=== PATIENT | male | born 1945 | race Caucasian/White ===

== ENCOUNTER 2017-11-11 11:03 | Inpatient (IN) | payer MEDICARE ==
[2017-11-11] MEDS ORDERED: Albuterol 8 GM Inhaler INH PRN (11:58)
[2017-11-11] MEDS ORDERED: Clobetasol 0.05% Crm 30 GM Tube TOP PRN (11:58)
[2017-11-11] MEDS ORDERED: Bumetanide 2.5 MG/10 ML MDV IVPUSH SCH (12:00)
[2017-11-11] MEDS ORDERED: Acetaminophen 325 MG Tab PO PRN (12:01)
[2017-11-11] MEDS ORDERED: Docusate Sodium 100 MG Cap PO PRN (12:01)
[2017-11-11] MEDS ORDERED: Sodium Chloride 0.9% 10 ML Syringe FLUSH PRN (12:01)
[2017-11-11] MEDS ORDERED: Ondansetron 4 MG/2 ML SDV IV PRN (12:01)
[2017-11-11] MEDS ORDERED: oxyCODONE 5 MG Tab PO PRN (12:01)
[2017-11-11] MEDS ORDERED: Magnesium Hydroxide 400 MG/5 ML Susp 30 ML Cup PO PRN (12:01)
[2017-11-11] MEDS ORDERED: Polyethylene Glycol 3350 Powder 17 GM Packet PO PRN (12:01)
[2017-11-11] MEDS ORDERED: Albuterol 0.083% 2.5 MG/3 ML Neb Soln NEB PRN (12:01)
[2017-11-11] MEDS ORDERED: Bumetanide 2.5 MG/10 ML MDV IVPUSH ONE (12:40)
--- NOTE | 2017-11-11 12:50 | PCM.HP ---
H&P History of Present Illness - General Date of Service: 11/11/17 Admit Problem/Dx: Admission Diagnosis/Problem Admission Diagnosis/Problem CHF, Congestive heart failure Source of Information: Patient, Old Records, Provider History Limitations: Reports: No Limitations - History of Present Illness Initial Comments - Free Text/Narative: Mr. Sullivan is a 72-year-old gentleman who is admitted as a direct admission from the clinic for further evaluation and management of dyspnea and atrial fibrillation with rapid ventricular response. Over the last 3 weeks has had symptoms of progressive shortness of breath, now to the point that he is been short of breath at rest with PND and orthopnea. During that period of time is also developed severe peripheral edema extending into his thighs and lower abdomen. He was seen and evaluated at the clinic last week, BNP was elevated at 300 and he was noted to be in atrial fibrillation with rapid ventricular response. Recommendation was made at that time for hospitalization which he refused. His dose of beta donaldo was increased was placed on an increased dose of diuretic therapy. Warfarin was initiated for anticoagulation because of the atrial fibrillation. CT scan of the chest with PE protocol was obtained that showed no evidence of pulmonary embolism or pneumonia but did document pulmonary edema. Echocardiogram has been ordered but the patient did not feel well enough to come in for the study. On reassessment in the clinic today was noted to be worse with increased weight gain and increased shortness of breath so he's been referred for hospitalization. He denies any previous history of coronary artery disease, problem list does report cardiomyopathy patient says that he is not aware of this. 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 Denies any symptoms consistent with infection or COPD exacerbation. - Related Data Allergies/Adverse Reactions: Allergies Allergy/AdvReac Type Severity Reaction Status Date / Time No Known Allergies Allergy Verified 11/11/17 11:47 Home Medications: Home Meds Albuterol Sulfate [Proair Hfa] 2 puff IH Q4HR PRN 03/19/15 [History] Clobetasol [Clobetasol Propionate 0.05%] 1 applic TOP BID PRN 03/19/15 [History] Febuxostat [Uloric] 40 mg PO DAILY 03/19/15 [History] Furosemide 40 mg PO DAILY 03/19/15 [History] Nebivolol HCl [Bystolic] 5 mg PO BID 04/19/15 [History] Tadalafil [Cialis] 10 mg PO DAILY PRN 03/19/15 [History] Triamcinolone Acetonide [Triamcinolone Acetonide 0.5%] 1 applic TOP DAILY PRN [History] Valsartan 160 mg PO BID 03/19/15 [History] Tamsulosin [Tamsulosin 24 Hr] 0.4 mg PO DAILY 03/11/16 [History] Fluocinonide [Lidex 0.05% Top Soln] 1 applic TOP BID 01/06/17 [History] Digoxin [Digox] 125 mcg PO Q48H 11/11/17 [History] Fluticasone/Salmeterol [Advair 250-50 Diskus] 1 puff IN BID 11/11/17 [History] Warfarin Sodium [Warfarin Sodium] 5 mg PO DAILY 11/11/17 [History] Past Medical History HEENT History: Reports: Cataract Cardiovascular History: Reports: Afib, Cardiomyopathy, Heart Failure, High Cholesterol, Hypertension Respiratory History: Reports: COPD Genitourinary History: Reports: Other (See Below) Other Genitourinary History: stage 3 Kidney disease Musculoskeletal History: Reports: Back Pain, Chronic Endocrine/Metabolic History: Reports: Obesity/BMI 30+ Oncologic (Cancer) History: Reports: Bladder - Infectious Disease History Infectious Disease History: Reports: Chicken Pox - Past Surgical History HEENT Surgical History: Reports: Oral Surgery Neurological Surgical History: Reports: Spinal Fusion Social & Family History - Tobacco Use Smoking Status *Q: Former Smoker Years of Tobacco use: 45 Used Tobacco, but Quit: Yes Month Tobacco Last Used: 12 year Second Hand Smoke Exposure: Yes - Caffeine Use Caffeine Use: Reports: Coffee, Soda - Alcohol Use Days Per Week of Alcohol Use: 3 Number of Drinks Per Day: 2 Total Drinks Per Week: 6 - Recreational Drug Use Recreational Drug Use: No H&P Review of Systems - Review of Systems: Review Of Systems: See Below General: Reports: Weakness. Denies: Fever, Chills HEENT: Reports: No Symptoms Pulmonary: Reports: Shortness of Breath. Denies: Wheezing, Pleuritic Chest Pain , Cough, Sputum, Hemoptysis Cardiovascular: Reports: Dyspnea on Exertion, Orthopnea, PND, Edema. Denies: Chest Pain, Palpitations, Lightheadedness, Syncope Gastrointestinal: Reports: No Symptoms Genitourinary: Reports: No Symptoms Musculoskeletal: Reports: No Symptoms Skin: Reports: No Symptoms Psychiatric: Reports: No Symptoms Neurological: Reports: No Symptoms Hematologic/Lymphatic: Reports: No Symptoms Immunologic: Reports: No Symptoms Exam - Exam Exam: See Below - Vital Signs Vital Signs: Last Vital Signs Temp 97.0 F 11/11/17 11:42 Pulse 120 H 11/11/17 11:42 Resp 22 H 11/11/17 11:42 BP 134/95 H 11/11/17 11:42 Pulse Ox 91 L 11/11/17 11:42 Weight: 346 lb 8 oz - Exam Quality Assessment: Supplemental Oxygen, DVT Prophylaxis General: Alert, Oriented, Cooperative, Mild Distress HEENT: Conjunctiva Clear, Hearing Intact, Mucosa Moist & Yale, Normal Nasal Septum, Posterior Pharynx Clear, Pupils Equal Neck: Supple, Trachea Midline, +2 Carotid Pulse wo Bruit Lungs: Normal Respiratory Effort, Decreased Breath Sounds, Rales. No: Rhonchi, Rub, Wheezing Cardiovascular: Irregular Rhythm, Tachycardia. No: Systolic Murmur, Diastolic Murmur, Gallop/S3, Gallop/S4 GI/Abdominal Exam: Soft, Non-Tender, No Organomegaly, No Distention Back Exam: Normal Inspection, Vertebral Tenderness Extremities: Non-Tender, Pedal Edema Skin: Warm, Dry, Intact Neurological: Cranial Nerves Intact, Strength Equal Bilateral, Normal Speech, Normal Tone, Sensation Intact. No: Focal Deficit Neuro Extensive - Mental Status: Alert, Oriented x3, Normal Mood/Affect, Normal Cognition, Memory Intact *Q Meaningful Use (ADM) - VTE *Q VTE Criteria *Q: - VTE Risk Assess *Q Each Risk Factor Represents 1 Point: Swollen Legs, Current, Obesity ( BMI > 25 kg/m2), Congestive heart failure (CHF), Abnormal Pulmonary Function (COPD) Total Score 1 Point Risk Factors: 4 Each Risk Factor Represents 2 Points: Age 60 - 74 Years Total Score 2 Point Risk Factors: 2 Each Risk Factor Represents 3 Points: None Total Score 3 Point Risk Factors: 0 Each Risk Factor Represents 5 Points: None Total Score 5 Point Risk Factors: 0 Venous Thromboembolism Risk Factor Score *Q: 6 - Stroke *Q Stroke Criteria *Q: - AMI *Q AMI Criteria *Q: Problem List Initiated/Reviewed/Updated: Yes Orders Last 24hrs: Active Orders 24 hr Category Date Time Status Patient Status [ADT] Routine ADT 11/11/17 12:02 Active Ambulate [RC] QID Care 11/11/17 12:02 Active Cardiac Monitoring [RC] .As Directed Care 11/11/17 12:03 Active Height and Weight [RC] DAILY Care 11/11/17 12:02 Active Intake and Output [RC] QSHIFT Care 11/11/17 12:02 Active Notify Provider Vital Signs [RC] ASDIRECTED Care 11/11/17 12:02 Active Oxygen Therapy [RC] PRN Care 11/11/17 12:02 Active RT Aerosol Therapy [RC] ASDIRECTED Care 11/11/17 12:04 Active Up to Chair [RC] QID Care 11/11/17 12:02 Active VTE/DVT Education [RC] Per Unit Routine Care 11/11/17 12:02 Active Vital Signs [RC] Q4H Care 11/11/17 12:02 Active Consult to Planting Material Unloader [CONS] Routine Cons 11/11/17 12:01 Active 2 Gram Sodium Diet [DIET] Diet 11/11/17 Lunch Active Echo Comp wo Cont [US] Urgent Exams 11/12/17 08:00 Stop Req Echo Comp wo Cont [US] Urgent Exams 11/13/17 08:00 Ordered BASIC METABOLIC PANEL,BMP [CHEM] Timed Lab 11/12/17 05:00 Ordered CBC WITH AUTO DIFF [HEME] AM Lab 11/12/17 05:11 Ordered CBC WITH AUTO DIFF [HEME] Stat Lab 11/11/17 12:01 Ordered COMPREHENSIVE METABOLIC PN,CMP [CHEM] Stat Lab 11/11/17 12:01 Ordered DIGOXIN [CHEM] Urgent Lab 11/11/17 12:06 Ordered INR,PT,PROTHROMBIN TIME [COAG] AM Lab 11/12/17 05:11 Ordered INR,PT,PROTHROMBIN TIME [COAG] Stat Lab 11/11/17 12:01 Ordered MAGNESIUM [CHEM] Stat Lab 11/11/17 12:01 Ordered Acetaminophen [Tylenol] Med 11/11/17 12:01 Active 650 mg PO Q4H PRN Albuterol [Proventil Neb Soln] Med 11/11/17 12:01 Active 2.5 mg NEB Q4H PRN Albuterol [Ventolin HFA] Med 11/11/17 11:58 Active 0 gm INH Q4H PRN Albuterol/Ipratropium [DuoNeb 3.0-0.5 MG/3 ML] Med 11/11/17 15:00 Active 3 ml NEB QIDRT Bumetanide [Bumex] Med 11/11/17 19:00 Ordered 2 mg IVPUSH Q12H Clobetasol [Clobetasol 0.05%] Med 11/11/17 11:58 Ordered DOSE gm TOP BID PRN Digoxin [Lanoxin] Med 11/12/17 09:00 Ordered 125 mcg PO DAILY Diltiazem Med 11/11/17 12:43 Once 20 mg IVPUSH ONETIME ONE Diltiazem 100 MG in Normal Saline Adv @ 5 MG/HR(100ml) Med 11/11/17 12:45 Ordered Diltiazem [Cardizem] 100 mg Sodium Chloride 0.9% [Normal Saline] 100 ml IV TITRATE Docusate Sodium [Colace] Med 11/11/17 12:01 Active 100 mg PO BID PRN Enoxaparin [Lovenox] Med 11/11/17 12:15 Ordered 40 mg SUBCUT DAILY Febuxostat [Uloric] Med 11/12/17 09:00 Active 40 mg PO DAILY Fluocinonide [Lidex 0.05% Top Soln] Med 11/11/17 21:00 Ordered 1 applic TOP BID Magnesium Hydroxide [Milk of Magnesia] Med 11/11/17 12:01 Active 30 ml PO Q12H PRN Mometasone/Formoterol [Dulera 200-5 MCG] Med 11/11/17 21:00 Active 2 puff IH BIDRT Nebivolol [Bystolic] Med 11/11/17 21:00 Ordered 10 mg PO BID Ondansetron [Zofran] Med 11/11/17 12:01 Active 4 mg IV Q4H PRN Polyethylene Glycol 3350 [MiraLAX] Med 11/11/17 12:01 Active 17 gm PO DAILY PRN Sodium Chloride 0.9% [Saline Flush] Med 11/11/17 12:01 Active 10 ml FLUSH ASDIRECTED PRN Tamsulosin [Flomax] Med 11/12/17 09:00 Active 0.4 mg PO DAILY Triamcinolone Acetonide [Triamcinolone Acetonide 0.5%] Med 11/11/17 11:58 Ordered 1 applic TOP DAILY PRN Valsartan [Diovan] Med 11/11/17 21:00 Active 160 mg PO BID Warfarin [Coumadin] Med 11/11/17 12:42 Once 7.5 mg PO ONETIME ONE oxyCODONE Med 11/11/17 12:01 Active 5 mg PO Q4H PRN Saline Lock Insert [OM.PC] Routine Oth 11/11/17 12:01 Ordered Resuscitation Status Routine Resus Stat 11/11/17 12:01 Ordered Medication Orders Acetaminophen (Tylenol) 650 mg PO Q4H PRN PRN Reason: Pain (Mild 1-3)/fever Albuterol (Ventolin Hfa) 0 gm INH Q4H PRN PRN Reason: Dyspnea Albuterol (Proventil Neb Soln) 2.5 mg NEB Q4H PRN PRN Reason: Shortness Of Breath/wheezing Albuterol/Ipratropium (Duoneb 3.0-0.5 Mg/3 Ml) 3 ml NEB QIDRT MARSHA Bumetanide (Bumex) 2 mg IVPUSH Q12H MARSHA Clobetasol Propionate (Clobetasol 0.05%) 0 gm TOP BID PRN PRN Reason: Rash Digoxin (Lanoxin) 125 mcg PO DAILY MARSHA Diltiazem HCl (Diltiazem) 20 mg IVPUSH ONETIME ONE Stop: 11/11/17 12:44 Docusate Sodium (Colace) 100 mg PO BID PRN PRN Reason: Constipation Enoxaparin Sodium (Lovenox) 40 mg SUBCUT DAILY MARSHA Febuxostat (Uloric) 40 mg PO DAILY MARSHA Diltiazem HCl 100 mg/ Sodium (Chloride) 100 mls @ 5 mls/hr IV TITRATE MARSHA; 5 MG /HR PRN Reason: Protocol Magnesium Hydroxide (Milk Of Magnesia) 30 ml PO Q12H PRN PRN Reason: Constipation Mometasone Furoate/Formoterol Fumar (Dulera 200-5 Mcg) 2 puff IH BIDRT MARSHA Nebivolol (Bystolic) 10 mg PO BID MARSHA Non-Formulary Medication (Fluocinonide [Lidex 0.05% Top Soln]) 1 applic TOP BID MARSHA Non-Formulary Medication (Triamcinolone Acetonide [Triamcinolone Acetonide 0.5%] ) 1 applic TOP DAILY PRN PRN Reason: Rash Ondansetron HCl (Zofran) 4 mg IV Q4H PRN PRN Reason: Nausea/Vomiting Oxycodone HCl (Oxycodone) 5 mg PO Q4H PRN PRN Reason: Pain (moderate 4-6) Polyethylene Glycol (Miralax) 17 gm PO DAILY PRN PRN Reason: Constipation Sodium Chloride (Saline Flush) 10 ml FLUSH ASDIRECTED PRN PRN Reason: Keep Vein Open Tamsulosin HCl (Flomax) 0.4 mg PO DAILY MARSHA Valsartan (Diovan) 160 mg PO BID MARSHA Warfarin Sodium (Coumadin) 7.5 mg PO ONETIME ONE Stop: 11/11/17 12:43 Assessment/Plan Comment:: ASSESSMENT AND PLAN ATRIAL FIBRILLATION WITH RAPID VENTRICULAR RESPONSE-exact duration is unknown, likely present over the past 3 weeks. Likely contributing factor to current pulmonary edema and probable congestive heart failure. -Continue oral anticoagulation with warfarin -INR now and in a.m. -Increase Bystolic to 10 mg twice daily -Echocardiogram morning -Diltiazem 20 mg IV now -Diltiazem continuous infusion 5 mg per hour -Convert to oral medication in a.m. -Continue digoxin -Digoxin level pending CONGESTIVE HEART FAILURE-obvious pulmonary and peripheral edema contributing to current symptoms. Problem list reports history of cardiomyopathy, patient reports that he is not aware of that. -Strict 2 g sodium diet -Dietary consult to review low-sodium diet -Continue current therapy with ARB, beta donaldo, and digoxin -Hold oral furosemide -Bumex 2 mg IV every 12 hours -Echocardiogram as above COPD-known diagnosis, oxygen dependent. No evidence of acute exacerbation or underlying pulmonary infection. -Continue outpatient medical regimen -Supplemental oxygen as needed -Nebulized albuterol and duo nebs during hospitalization CHRONIC KIDNEY DISEASE STAGE III -Closely monitor urine output and renal function during hospital stay MAINTENANCE ISSUES -DVT prophylaxis; Lovenox 40 mg subcutaneous daily, until INR is therapeutic -GI prophylaxis; not indicated -Cooper catheter; not indicated -Nutrition; 2 g sodium diet -Nicotine dependence; not required CODE STATUS-FULL CODE ADMISSION STATUS-patient will be admitted to inpatient status, expect at least a 2 night hospital stay for evaluation and management of problems as outlined above. At the time of this admission I do not reasonably expected evaluation and management of this problem will require more than a 96 hour hospital stay. DISPOSITION-anticipate discharge to home after the hospital stay. PRIMARY CARE PROVIDER-Dr. Johnson
[2017-11-11] MEDS ORDERED: Diltiazem 25 MG/5 ML SDV IVPUSH ONE (13:00)
[2017-11-11] MEDS: Diltiazem 100 MG in Sodium Chloride 0.9% 100 ML IV SCH ×2 (14:04→23:15)
[2017-11-11] MEDS ORDERED: Warfarin 2.5 MG Tab PO ONE (14:30)
[2017-11-11] MEDS: Albuterol/Ipratropium 3.0-0.5 MG/3 ML Neb Soln NEB SCH ×2 (14:41→21:23)
[2017-11-11] MEDS: Enoxaparin 40 MG/0.4 ML Syringe SUBCUT SCH (15:08)
[2017-11-11] MEDS: Digoxin 125 MCG Tab PO SCH (15:09)
[2017-11-11] MEDS: Bumetanide 2.5 MG/10 ML MDV IVPUSH SCH (19:48)
[2017-11-11] MEDS ORDERED: VALSARTAN PO SCH (21:00)
[2017-11-11] MEDS ORDERED: Non-Formulary Medication 1 Each (Fluticasone/Salmeterol [Advair 250-50 Diskus] 1 PUFF) IN SCH (21:00)
[2017-11-11] MEDS: Formoterol/Mometasone 200-5 MCG 8.8 GM Inhaler IH SCH (21:17)
[2017-11-11] MEDS: FLUOCINONIDE TOP SCH (21:26)
[2017-11-12] MEDS ORDERED: Sodium Chloride 0.9% 500 ML IV ONE (05:44)
[2017-11-12] MEDS: Bumetanide 2.5 MG/10 ML MDV IVPUSH SCH (07:43)
[2017-11-12] MEDS: Formoterol/Mometasone 200-5 MCG 8.8 GM Inhaler IH SCH ×2 (07:56→20:05)
[2017-11-12] MEDS: Albuterol/Ipratropium 3.0-0.5 MG/3 ML Neb Soln NEB SCH ×4 (07:56→20:06)
--- NOTE | 2017-11-12 08:53 | PCM.PN ---
- General Info Date of Service: 11/12/17 Subjective Update: Mr. Sullivan is been stable since admission yesterday. Heart rate has come under better control with use of IV diltiazem and he diuresed approximately 2 L since admission. Continues to have marked peripheral edema and shortness of breath with minimal exertion. Vital signs have otherwise been stable and he has remained afebrile. Functional Status: Reports: Tolerating Diet, Urinating - Review of Systems General: Reports: Weakness. Denies: Fever, Chills Pulmonary: Reports: Shortness of Breath. Denies: Cough, Sputum, Hemoptysis, Wheezing Cardiovascular: Reports: Dyspnea on Exertion, Orthopnea, PND, Edema. Denies: Chest Pain, Palpitations Gastrointestinal: Reports: No Symptoms - Patient Data Vitals - Most Recent: Last Vital Signs Temp 97.1 F 11/12/17 07:00 Pulse 100 11/12/17 07:58 Resp 18 11/12/17 08:00 BP 95/63 11/12/17 08:00 Pulse Ox 95 11/12/17 08:00 Weight - Most Recent: 340 lb 6.4 oz I&O - Last 24 Hours: Intake & Output 11/11/17 11/12/17 11/12/17 22:59 06:59 14:59 Intake Total 1226 769 480 Output Total 3400 475 Balance -2174 294 480 Lab Results Last 24 Hours: Laboratory Results - last 24 hr 11/11/17 11/11/17 11/11/17 Range/Units 13:43 13:43 13:43 WBC 5.9 (4.5-11.0) K/uL RBC 4.30 (4.30-5.90) M/uL Hgb 12.7 D (12.0-15.0) g/dL Hct 42.0 (40.0-54.0) % MCV 98 (80-98) fL MCH 30 (27-31) pg MCHC 30 L (32-36) % Plt Count 183 (150-400) K/uL Neut % (Auto) 75 H (36-66) % Lymph % (Auto) 19 L (24-44) % Snyder % (Auto) 4 (2-6) % Eos % (Auto) 2 (2-4) % Baso % (Auto) 0 (0-1) % PT 12.3 H (9.5-12.0) sec INR 1.14 (0.80-1.20) Sodium 143 (140-148) mmol/L Potassium 4.4 (3.6-5.2) mmol/L Chloride 104 (100-108) mmol/L Carbon Dioxide 36 H (21-32) mmol/L Anion Gap 7.4 (5.0-14.0) mmol/L BUN 18 (7-18) mg/dL Creatinine 1.2 (0.8-1.3) mg/dL Est Cr Clr Drug Dosing 60.18 mL/min Estimated GFR (MDRD) 59 L (>60) Glucose 125 H (74-106) mg/dL Calcium 9.3 (8.5-10.1) mg/dL Magnesium 2.0 (1.8-2.4) mg/dL Total Bilirubin 0.7 (0.2-1.0) mg/dL AST 31 (15-37) U/L ALT 56 (12-78) U/L Alkaline Phosphatase 89 (46-116) U/L Total Protein 7.2 (6.4-8.2) g/dL Albumin 3.4 (3.4-5.0) g/dL Globulin 3.8 H (2.3-3.5) g/dL Albumin/Globulin Ratio 0.9 L (1.2-2.2) Digoxin (0.90-2.00) ng/mL 11/11/17 11/12/17 11/12/17 Range/Units 13:43 05:00 05:00 WBC 5.7 (4.5-11.0) K/uL RBC 4.13 L (4.30-5.90) M/uL Hgb 12.5 (12.0-15.0) g/dL Hct 40.5 (40.0-54.0) % MCV 98 (80-98) fL MCH 30 (27-31) pg MCHC 31 L (32-36) % Plt Count 210 (150-400) K/uL Neut % (Auto) 73 H (36-66) % Lymph % (Auto) 18 L (24-44) % Snyder % (Auto) 6 (2-6) % Eos % (Auto) 3 (2-4) % Baso % (Auto) 1 (0-1) % PT 12.3 H (9.5-12.0) sec INR 1.14 (0.80-1.20) Sodium (140-148) mmol/L Potassium (3.6-5.2) mmol/L Chloride (100-108) mmol/L Carbon Dioxide (21-32) mmol/L Anion Gap (5.0-14.0) mmol/L BUN (7-18) mg/dL Creatinine (0.8-1.3) mg/dL Est Cr Clr Drug Dosing mL/min Estimated GFR (MDRD) (>60) Glucose (74-106) mg/dL Calcium (8.5-10.1) mg/dL Magnesium (1.8-2.4) mg/dL Total Bilirubin (0.2-1.0) mg/dL AST (15-37) U/L ALT (12-78) U/L Alkaline Phosphatase (46-116) U/L Total Protein (6.4-8.2) g/dL Albumin (3.4-5.0) g/dL Globulin (2.3-3.5) g/dL Albumin/Globulin Ratio (1.2-2.2) Digoxin 0.31 L (0.90-2.00) ng/mL 11/12/17 Range/Units 05:00 WBC (4.5-11.0) K/uL RBC (4.30-5.90) M/uL Hgb (12.0-15.0) g/dL Hct (40.0-54.0) % MCV (80-98) fL MCH (27-31) pg MCHC (32-36) % Plt Count (150-400) K/uL Neut % (Auto) (36-66) % Lymph % (Auto) (24-44) % Snyder % (Auto) (2-6) % Eos % (Auto) (2-4) % Baso % (Auto) (0-1) % PT (9.5-12.0) sec INR (0.80-1.20) Sodium 141 (140-148) mmol/L Potassium 4.2 (3.6-5.2) mmol/L Chloride 103 (100-108) mmol/L Carbon Dioxide 35 H (21-32) mmol/L Anion Gap 7.2 (5.0-14.0) mmol/L BUN 20 H (7-18) mg/dL Creatinine 1.4 H (0.8-1.3) mg/dL Est Cr Clr Drug Dosing 51.58 mL/min Estimated GFR (MDRD) 50 L (>60) Glucose 109 H (74-106) mg/dL Calcium 9.0 (8.5-10.1) mg/dL Magnesium (1.8-2.4) mg/dL Total Bilirubin (0.2-1.0) mg/dL AST (15-37) U/L ALT (12-78) U/L Alkaline Phosphatase (46-116) U/L Total Protein (6.4-8.2) g/dL Albumin (3.4-5.0) g/dL Globulin (2.3-3.5) g/dL Albumin/Globulin Ratio (1.2-2.2) Digoxin (0.90-2.00) ng/mL Med Orders - Current: Current Medications Acetaminophen (Tylenol) 650 mg PO Q4H PRN PRN Reason: Pain (Mild 1-3)/fever Albuterol (Ventolin Hfa) 0 gm INH Q4H PRN PRN Reason: Dyspnea Albuterol (Proventil Neb Soln) 2.5 mg NEB Q4H PRN PRN Reason: Shortness Of Breath/wheezing Albuterol/Ipratropium (Duoneb 3.0-0.5 Mg/3 Ml) 3 ml NEB QIDRT [facility] Last Admin: 11/12/17 07:56 Dose: 3 ml Bumetanide (Bumex) 2 mg IVPUSH Q12H [facility] Last Admin: 11/12/17 07:43 Dose: 2 mg Clobetasol Propionate (Clobetasol 0.05%) 0 gm TOP BID PRN PRN Reason: Rash Digoxin (Lanoxin) 125 mcg PO DAILY@1300 [facility] Last Admin: 11/11/17 15:09 Dose: 125 mcg Diltiazem HCl (Cardizem) 60 mg PO Q6H [facility] Docusate Sodium (Colace) 100 mg PO BID PRN PRN Reason: Constipation Enoxaparin Sodium (Lovenox) 40 mg SUBCUT Q24H [facility] Last Admin: 11/11/17 15:08 Dose: 40 mg Febuxostat (Uloric) 40 mg PO DAILY [facility] Magnesium Hydroxide (Milk Of Magnesia) 30 ml PO Q12H PRN PRN Reason: Constipation Mometasone Furoate/Formoterol Fumar (Dulera 200-5 Mcg) 2 puff IH BIDRT [facility] Last Admin: 11/12/17 07:56 Dose: 2 inhalation Nebivolol (Bystolic) 10 mg PO BID [facility] Last Admin: 11/11/17 21:18 Dose: 10 mg Fluocinonide [Lidex (0.05% Top Soln] Ptom) 1 applic TOP BID [facility] Last Admin: 11/11/17 21:26 Dose: Not Given Non-Formulary Medication (Triamcinolone Acetonide [Triamcinolone Acetonide 0.5%] ) 1 applic TOP DAILY PRN PRN Reason: Rash Ondansetron HCl (Zofran) 4 mg IV Q4H PRN PRN Reason: Nausea/Vomiting Oxycodone HCl (Oxycodone) 5 mg PO Q4H PRN PRN Reason: Pain (moderate 4-6) Polyethylene Glycol (Miralax) 17 gm PO DAILY PRN PRN Reason: Constipation Sodium Chloride (Saline Flush) 10 ml FLUSH ASDIRECTED PRN PRN Reason: Keep Vein Open Tamsulosin HCl (Flomax) 0.4 mg PO DAILY [facility] Valsartan (Diovan) 160 mg PO BID [facility] Last Admin: 11/11/17 21:22 Dose: 160 mg Warfarin Sodium (Coumadin) 10 mg PO ONETIME ONE Stop: 11/12/17 10:01 Discontinued Medications Bumetanide (Bumex) 2 mg IVPUSH ONETIME ONE Stop: 11/11/17 12:41 Last Admin: 11/11/17 13:33 Dose: 2 mg Diltiazem HCl (Diltiazem) 20 mg IVPUSH ONETIME ONE Stop: 11/11/17 13:01 Last Admin: 11/11/17 14:00 Dose: 20 mg Diltiazem HCl 100 mg/ Sodium (Chloride) 100 mls @ 5 mls/hr IV TITRATE MARSHA; 5 MG /HR PRN Reason: Protocol Last Admin: 11/11/17 23:15 Dose: 10 mg/hr, 10 mls/hr Sodium Chloride (Normal Saline) 500 mls @ 10 mls/hr IV TITRATE ONE Stop: 11/14/17 07:43 Last Admin: 11/12/17 06:25 Dose: 10 mls/hr Warfarin Sodium (Coumadin) 5 mg PO DAILY MARSHA Warfarin Sodium (Coumadin) 7.5 mg PO ONETIME ONE Stop: 11/11/17 14:31 Last Admin: 11/11/17 15:09 Dose: 7.5 mg - Exam Quality Assessment: Supplemental Oxygen, DVT Prophylaxis General: Alert, Oriented, Cooperative, Mild Distress Lungs: Normal Respiratory Effort, Decreased Breath Sounds, Rales. No: Crackles , Rhonchi, Rub, Wheezing Cardiovascular: Irregular Rhythm, Tachycardia, Murmurs. No: Bradycardia GI/Abdominal Exam: Soft, Non-Tender, No Organomegaly, No Distention Extremities: Non-Tender, Pedal Edema Skin: Warm, Dry - Problem List Review Problem List Initiated/Reviewed/Updated: Yes - My Orders Last 24 Hours: My Active Orders 11/11/17 11:58 Albuterol [Ventolin HFA] 0 gm INH Q4H PRN Clobetasol [Clobetasol 0.05%] 0 gm TOP BID PRN Triamcinolone Acetonide [Triamcinolone Acetonide 0.5%] 1 applic TOP DAILY PRN 11/11/17 12:01 Consult to [employer] Director [CONS] Routine Acetaminophen [Tylenol] 650 mg PO Q4H PRN Albuterol [Proventil Neb Soln] 2.5 mg NEB Q4H PRN Docusate Sodium [Colace] 100 mg PO BID PRN Magnesium Hydroxide [Milk of Magnesia] 30 ml PO Q12H PRN Ondansetron [Zofran] 4 mg IV Q4H PRN Polyethylene Glycol 3350 [MiraLAX] 17 gm PO DAILY PRN Sodium Chloride 0.9% [Saline Flush] 10 ml FLUSH ASDIRECTED PRN oxyCODONE 5 mg PO Q4H PRN Saline Lock Insert [OM.PC] Routine Resuscitation Status Routine 11/11/17 12:02 Patient Status [ADT] Routine Ambulate [RC] QID Height and Weight [RC] 0600 Intake and Output [RC] Q12H Notify Provider Vital Signs [RC] ASDIRECTED Oxygen Therapy [RC] DAILY Up to Chair [RC] QID VTE/DVT Education [RC] Per Unit Routine 11/11/17 12:03 Cardiac Monitoring [RC] Q6H 11/11/17 12:04 RT Aerosol Therapy [RC] ASDIRECTED 11/11/17 13:38 EKG 12 Lead [EK] Urgent 11/11/17 14:30 Digoxin [Lanoxin] 125 mcg PO DAILY@1300 11/11/17 15:00 Albuterol/Ipratropium [DuoNeb 3.0-0.5 MG/3 ML] 3 ml NEB QIDRT Enoxaparin [Lovenox] 40 mg SUBCUT Q24H 11/11/17 19:30 Bumetanide [Bumex] 2 mg IVPUSH Q12H 11/11/17 21:00 Fluocinonide [Lidex 0.05% Top Soln] 1 applic TOP BID Mometasone/Formoterol [Dulera 200-5 MCG] 2 puff IH BIDRT Nebivolol [Bystolic] 10 mg PO BID Valsartan [Diovan] 160 mg PO BID 11/11/17 Lunch 2 Gram Sodium Diet [DIET] 11/12/17 08:43 Warfarin [Coumadin] 10 mg PO ONETIME ONE 11/12/17 08:45 Convert IV to Saline Lock [OM.PC] Routine 11/12/17 08:48 Vital Signs [RC] Q2H 11/12/17 09:00 Febuxostat [Uloric] 40 mg PO DAILY Tamsulosin [Flomax] 0.4 mg PO DAILY 11/12/17 10:00 Diltiazem IR [Cardizem] 60 mg PO Q6HR 11/13/17 05:00 BASIC METABOLIC PANEL,BMP [CHEM] Timed DIGOXIN [CHEM] Timed MAGNESIUM [CHEM] Timed 11/13/17 05:11 INR,PT,PROTHROMBIN TIME [COAG] AM 11/13/17 08:00 Echo Comp wo Cont [US] Urgent - Plan Plan:: ASSESSMENT AND PLAN ATRIAL FIBRILLATION WITH RAPID VENTRICULAR RESPONSE-exact duration is unknown, likely present over the past 3 weeks. Likely contributing factor to current pulmonary edema and probable congestive heart failure. -Warfarin 10 mg by mouth today -Repeat INR in a.m. -Increase Bystolic to 10 mg twice daily -Echocardiogram tomorrow -Discontinue IV diltiazem -Diltiazem 60 mg by mouth every 6 hours -Digoxin 0.125 mg by mouth daily -Repeat digoxin level in a.m. CONGESTIVE HEART FAILURE-obvious pulmonary and peripheral edema contributing to current symptoms. Problem list reports history of cardiomyopathy, patient reports that he is not aware of that. -Strict 2 g sodium diet -Dietary consult to review low-sodium diet -Continue current therapy with ARB, beta donaldo, and digoxin -Hold oral furosemide -Bumex 2 mg IV every 12 hours -Echocardiogram as above COPD-known diagnosis, oxygen dependent. No evidence of acute exacerbation or underlying pulmonary infection. -Continue outpatient medical regimen -Supplemental oxygen as needed -Nebulized albuterol and duo nebs during hospitalization CHRONIC KIDNEY DISEASE STAGE III -Closely monitor urine output and renal function during hospital stay MAINTENANCE ISSUES -DVT prophylaxis; Lovenox 40 mg subcutaneous daily, until INR is therapeutic -GI prophylaxis; not indicated -Cooper catheter; not indicated -Nutrition; 2 g sodium diet -Nicotine dependence; not required CODE STATUS-FULL CODE ADMISSION STATUS-patient will be admitted to inpatient status, expect at least a 2 night hospital stay for evaluation and management of problems as outlined above. At the time of this admission I do not reasonably expected evaluation and management of this problem will require more than a 96 hour hospital stay. DISPOSITION-anticipate discharge to home after the hospital stay. PRIMARY CARE PROVIDER-Dr. Johnson
[2017-11-12] MEDS ORDERED: Warfarin 5 MG Tab PO SCH (09:00)
[2017-11-12] MEDS: Tamsulosin 0.4 MG Cap.ER PO SCH (09:03)
[2017-11-12] MEDS: Febuxostat 40 MG Tab PO SCH (09:03)
[2017-11-12] MEDS: FLUOCINONIDE TOP SCH ×2 (09:04→20:08)
[2017-11-12] MEDS: Diltiazem IR 30 MG Tab PO SCH ×3 (09:14→21:15)
[2017-11-12] MEDS ORDERED: Warfarin 5 MG Tab PO ONE (10:00)
[2017-11-12] MEDS: Digoxin 125 MCG Tab PO SCH (12:36)
[2017-11-12] MEDS ORDERED: Bumetanide 1 MG/4 ML MDV IVPUSH SCH (13:00)
[2017-11-12] MEDS: Enoxaparin 40 MG/0.4 ML Syringe SUBCUT SCH (15:08)
[2017-11-12] MEDS: Bumetanide 1 MG/4 ML MDV IVPUSH SCH (19:22)
[2017-11-13] MEDS: Diltiazem IR 30 MG Tab PO SCH (04:30)
[2017-11-13] MEDS: Formoterol/Mometasone 200-5 MCG 8.8 GM Inhaler IH SCH ×2 (07:01→21:13)
[2017-11-13] MEDS: Albuterol/Ipratropium 3.0-0.5 MG/3 ML Neb Soln NEB SCH ×4 (07:01→21:25)
[2017-11-13] MEDS: Bumetanide 1 MG/4 ML MDV IVPUSH SCH ×2 (08:16→21:10)
[2017-11-13] MEDS: Tamsulosin 0.4 MG Cap.ER PO SCH (08:19)
[2017-11-13] MEDS: Febuxostat 40 MG Tab PO SCH (08:20)
[2017-11-13] MEDS ORDERED: Warfarin 5 MG Tab PO ONE (10:00)
[2017-11-13] MEDS: Diltiazem 120 MG Cap.CD PO SCH (10:27)
[2017-11-13] MEDS: FLUOCINONIDE TOP SCH ×2 (10:32→21:13)
--- NOTE | 2017-11-13 10:33 | PCM.PN ---
- General Info Date of Service: 11/13/17 Subjective Update: Mr. Sullivan is remained stable since yesterday, heart rate control has improved further although continues to go into the low 100s with activity. Vital signs have otherwise been stable and diuresis has been good, modest improvement in shortness of breath and edema. Functional Status: Reports: Pain Controlled, Tolerating Diet, Urinating - Review of Systems General: Reports: Weakness. Denies: Fever, Chills Pulmonary: Reports: Shortness of Breath, Wheezing. Denies: Pleuritic Chest Pain , Cough, Sputum, Hemoptysis Cardiovascular: Reports: Dyspnea on Exertion, Orthopnea, PND, Edema. Denies: Chest Pain, Palpitations Gastrointestinal: Reports: No Symptoms - Patient Data Vitals - Most Recent: Last Vital Signs Temp 97.0 F 11/13/17 09:48 Pulse 101 H 11/13/17 09:48 Resp 20 11/13/17 09:48 BP 111/90 11/13/17 09:48 Pulse Ox 93 L 11/13/17 09:48 Weight - Most Recent: 339 lb 8.19 oz I&O - Last 24 Hours: Intake & Output 11/12/17 11/13/17 11/13/17 22:59 06:59 14:59 Intake Total 1250 Output Total 350 Balance -350 1250 Lab Results Last 24 Hours: Laboratory Results - last 24 hr 11/13/17 11/13/17 Range/Units 04:50 04:50 PT 13.1 H (9.5-12.0) sec INR 1.21 H (0.80-1.20) Sodium 141 (140-148) mmol/L Potassium 3.8 (3.6-5.2) mmol/L Chloride 101 (100-108) mmol/L Carbon Dioxide 35 H (21-32) mmol/L Anion Gap 8.8 (5.0-14.0) mmol/L BUN 16 (7-18) mg/dL Creatinine 1.2 (0.8-1.3) mg/dL Est Cr Clr Drug Dosing 60.26 mL/min Estimated GFR (MDRD) 59 L (>60) Glucose 111 H (74-106) mg/dL Calcium 8.9 (8.5-10.1) mg/dL Magnesium 1.8 (1.8-2.4) mg/dL Digoxin 0.30 L (0.90-2.00) ng/mL Med Orders - Current: Current Medications Acetaminophen (Tylenol) 650 mg PO Q4H PRN PRN Reason: Pain (Mild 1-3)/fever Albuterol (Ventolin Hfa) 0 gm INH Q4H PRN PRN Reason: Dyspnea Albuterol (Proventil Neb Soln) 2.5 mg NEB Q4H PRN PRN Reason: Shortness Of Breath/wheezing Albuterol/Ipratropium (Duoneb 3.0-0.5 Mg/3 Ml) 3 ml NEB QIDRT [facility] Last Admin: 11/13/17 07:01 Dose: 3 ml Bumetanide (Bumex) 2 mg IVPUSH Q12H [facility] Last Admin: 11/13/17 08:16 Dose: 2 mg Clobetasol Propionate (Clobetasol 0.05%) 0 gm TOP BID PRN PRN Reason: Rash Digoxin (Lanoxin) 125 mcg PO DAILY@1300 [facility] Last Admin: 11/12/17 12:36 Dose: 125 mcg Diltiazem HCl (Cardizem Cd) 240 mg PO DAILY [facility] Docusate Sodium (Colace) 100 mg PO BID PRN PRN Reason: Constipation Last Admin: 11/12/17 11:32 Dose: 100 mg Enoxaparin Sodium (Lovenox) 40 mg SUBCUT Q24H [facility] Last Admin: 11/12/17 15:08 Dose: 40 mg Febuxostat (Uloric) 40 mg PO DAILY [facility] Last Admin: 11/13/17 08:20 Dose: 40 mg Magnesium Hydroxide (Milk Of Magnesia) 30 ml PO Q12H PRN PRN Reason: Constipation Magnesium Oxide (Magnesium Oxide) 400 mg PO BID [facility] Mometasone Furoate/Formoterol Fumar (Dulera 200-5 Mcg) 2 puff IH BIDRT [facility] Last Admin: 11/13/17 07:01 Dose: 2 inhalation Nebivolol (Bystolic) 10 mg PO BID [facility] Last Admin: 11/13/17 08:20 Dose: 10 mg Fluocinonide [Lidex (0.05% Top Soln] Ptom) 1 applic TOP BID [facility] Last Admin: 11/12/17 20:08 Dose: Not Given Non-Formulary Medication (Triamcinolone Acetonide [Triamcinolone Acetonide 0.5%] ) 1 applic TOP DAILY PRN PRN Reason: Rash Ondansetron HCl (Zofran) 4 mg IV Q4H PRN PRN Reason: Nausea/Vomiting Oxycodone HCl (Oxycodone) 5 mg PO Q4H PRN PRN Reason: Pain (moderate 4-6) Polyethylene Glycol (Miralax) 17 gm PO DAILY PRN PRN Reason: Constipation Potassium Chloride (Klor-Con M20) 40 meq PO BID [facility] Sodium Chloride (Saline Flush) 10 ml FLUSH ASDIRECTED PRN PRN Reason: Keep Vein Open Tamsulosin HCl (Flomax) 0.4 mg PO DAILY [facility] Last Admin: 11/13/17 08:19 Dose: 0.4 mg Valsartan (Diovan) 160 mg PO BID [facility] Last Admin: 11/13/17 08:19 Dose: 160 mg Discontinued Medications Bumetanide (Bumex) 2 mg IVPUSH Q12H [facility] Last Admin: 11/12/17 07:43 Dose: 2 mg Bumetanide (Bumex) 2 mg IVPUSH ONETIME ONE Stop: 11/11/17 12:41 Last Admin: 11/11/17 13:33 Dose: 2 mg Bumetanide (Bumex) 2 mg IVPUSH Q12H [facility] Last Admin: 11/12/17 13:35 Dose: Not Given Diltiazem HCl (Diltiazem) 20 mg IVPUSH ONETIME ONE Stop: 11/11/17 13:01 Last Admin: 11/11/17 14:00 Dose: 20 mg Diltiazem HCl (Cardizem) 60 mg PO Q6H [facility] Last Admin: 11/13/17 04:30 Dose: 60 mg Diltiazem HCl 100 mg/ Sodium (Chloride) 100 mls @ 5 mls/hr IV TITRATE MARSHA; 5 MG /HR PRN Reason: Protocol Last Admin: 11/11/17 23:15 Dose: 10 mg/hr, 10 mls/hr Sodium Chloride (Normal Saline) 500 mls @ 10 mls/hr IV TITRATE ONE Stop: 11/14/17 07:43 Last Admin: 11/12/17 06:25 Dose: 10 mls/hr Warfarin Sodium (Coumadin) 5 mg PO DAILY [facility] Warfarin Sodium (Coumadin) 7.5 mg PO ONETIME ONE Stop: 11/11/17 14:31 Last Admin: 11/11/17 15:09 Dose: 7.5 mg Warfarin Sodium (Coumadin) 10 mg PO ONETIME ONE Stop: 11/12/17 10:01 Last Admin: 11/12/17 10:21 Dose: 10 mg Warfarin Sodium (Coumadin) 10 mg PO ONETIME ONE Stop: 11/13/17 10:01 - Exam Quality Assessment: Supplemental Oxygen, DVT Prophylaxis General: Alert, Oriented, Cooperative, Mild Distress Lungs: Normal Respiratory Effort, Decreased Breath Sounds, Rales, Wheezing. No : Crackles, Rhonchi Cardiovascular: Regular Rate, No Murmurs, Irregular Rhythm. No: Bradycardia GI/Abdominal Exam: Soft, Non-Tender, No Organomegaly, No Distention Extremities: Pedal Edema Skin: Warm, Dry - Problem List Review Problem List Initiated/Reviewed/Updated: Yes - My Orders Last 24 Hours: My Active Orders 11/12/17 19:30 Bumetanide [Bumex] 2 mg IVPUSH Q12H 11/13/17 08:00 Echo Comp wo Cont [US] Urgent 11/13/17 08:51 Intake and Output Strict [RC] ASDIRECTED 11/13/17 09:00 Diltiazem [Cardizem CD] 240 mg PO DAILY 11/13/17 10:30 Magnesium Oxide 400 mg PO BID Potassium Chloride [Klor-Con M20] 40 meq PO BID 11/14/17 05:00 BASIC METABOLIC PANEL,BMP [CHEM] Timed MAGNESIUM [CHEM] Timed 11/14/17 05:11 INR,PT,PROTHROMBIN TIME [COAG] AM - Plan Plan:: ASSESSMENT AND PLAN ATRIAL FIBRILLATION WITH RAPID VENTRICULAR RESPONSE-exact duration is unknown, likely present over the past 3 weeks. Likely contributing factor to current pulmonary edema and probable congestive heart failure. -Warfarin 10 mg by mouth today -Repeat INR in a.m. -Bystolic to 10 mg twice daily -Echocardiogram tomorrow -Discontinue IV diltiazem -Diltiazem CD 240 mg by mouth daily -Digoxin 0.125 mg by mouth daily CONGESTIVE HEART FAILURE-obvious pulmonary and peripheral edema contributing to current symptoms. Problem list reports history of cardiomyopathy, patient reports that he is not aware of that. Echocardiogram shows ejection fraction in the range of 35-40%, formal report pending. -Strict 2 g sodium diet -Dietary consult to review low-sodium diet -Continue current therapy with ARB, beta donaldo, and digoxin -Hold oral furosemide -Bumex 2 mg IV every 12 hours COPD-known diagnosis, oxygen dependent. No evidence of acute exacerbation or underlying pulmonary infection. -Continue outpatient medical regimen -Supplemental oxygen as needed -Nebulized albuterol and duo nebs during hospitalization CHRONIC KIDNEY DISEASE STAGE III -Closely monitor urine output and renal function during hospital stay MAINTENANCE ISSUES -DVT prophylaxis; Lovenox 40 mg subcutaneous daily, until INR is therapeutic -GI prophylaxis; not indicated -Cooper catheter; not indicated -Nutrition; 2 g sodium diet -Nicotine dependence; not required CODE STATUS-FULL CODE ADMISSION STATUS-patient will be admitted to inpatient status, expect at least a 2 night hospital stay for evaluation and management of problems as outlined above. At the time of this admission I do not reasonably expected evaluation and management of this problem will require more than a 96 hour hospital stay. DISPOSITION-anticipate discharge to home after the hospital stay. PRIMARY CARE PROVIDER-Dr. Johnson
[2017-11-13] MEDS: Potassium Chloride 20 MEQ Tab.ER PO SCH ×2 (12:30→18:04)
[2017-11-13] MEDS: Magnesium Oxide 400 MG Tab PO SCH ×2 (12:31→21:12)
[2017-11-13] MEDS: Digoxin 125 MCG Tab PO SCH (12:33)
[2017-11-13] MEDS: Enoxaparin 40 MG/0.4 ML Syringe SUBCUT SCH (18:04)
[2017-11-14] MEDS: Albuterol/Ipratropium 3.0-0.5 MG/3 ML Neb Soln NEB SCH ×4 (07:41→20:06)
[2017-11-14] MEDS: Formoterol/Mometasone 200-5 MCG 8.8 GM Inhaler IH SCH ×2 (07:49→20:07)
[2017-11-14] MEDS ORDERED: Warfarin 2.5 MG Tab PO ONE (08:08)
[2017-11-14] MEDS: Bumetanide 1 MG/4 ML MDV IVPUSH SCH ×2 (08:31→19:53)
[2017-11-14] MEDS: Potassium Chloride 20 MEQ Tab.ER PO SCH ×2 (08:36→16:34)
[2017-11-14] MEDS: Diltiazem 120 MG Cap.CD PO SCH (08:37)
[2017-11-14] MEDS: Magnesium Oxide 400 MG Tab PO SCH ×2 (08:37→20:09)
[2017-11-14] MEDS: Tamsulosin 0.4 MG Cap.ER PO SCH (08:37)
[2017-11-14] MEDS: Febuxostat 40 MG Tab PO SCH (08:38)
[2017-11-14] MEDS ORDERED: Warfarin 10 MG, Warfarin 2.5 MG PO ONE ×2 (09:00)
--- NOTE | 2017-11-14 09:05 | PCM.PN ---
- General Info Date of Service: 11/14/17 Subjective Update: Mr. Sullivan has been stable over the past 24 hours, heart rate continues to increase with activity and is likely an appropriate physiologic response given underlying compromise. He is noted less shortness of breath with activity and edema seems to be slowly improving. - Patient Data Vitals - Most Recent: Last Vital Signs Temp 98.9 F 11/14/17 08:00 Pulse 110 H 11/14/17 08:38 Resp 18 11/14/17 08:00 BP 104/78 11/14/17 08:38 Pulse Ox 94 L 11/14/17 08:00 Weight - Most Recent: 337 lb 11.971 oz I&O - Last 24 Hours: Intake & Output 11/13/17 11/14/17 11/14/17 22:59 06:59 14:59 Intake Total 400 800 Output Total 600 Balance -200 800 Lab Results Last 24 Hours: Laboratory Results - last 24 hr 11/14/17 11/14/17 Range/Units 05:44 05:44 PT 14.0 H (9.5-12.0) sec INR 1.29 H (0.80-1.20) Sodium 143 (140-148) mmol/L Potassium 4.2 (3.6-5.2) mmol/L Chloride 101 (100-108) mmol/L Carbon Dioxide 35 H (21-32) mmol/L Anion Gap 11.2 (5.0-14.0) mmol/L BUN 15 (7-18) mg/dL Creatinine 1.4 H (0.8-1.3) mg/dL Est Cr Clr Drug Dosing 51.65 mL/min Estimated GFR (MDRD) 50 L (>60) Glucose 114 H (74-106) mg/dL Calcium 8.9 (8.5-10.1) mg/dL Magnesium 1.9 (1.8-2.4) mg/dL Med Orders - Current: Current Medications Acetaminophen (Tylenol) 650 mg PO Q4H PRN PRN Reason: Pain (Mild 1-3)/fever Albuterol (Ventolin Hfa) 0 gm INH Q4H PRN PRN Reason: Dyspnea Albuterol (Proventil Neb Soln) 2.5 mg NEB Q4H PRN PRN Reason: Shortness Of Breath/wheezing Albuterol/Ipratropium (Duoneb 3.0-0.5 Mg/3 Ml) 3 ml NEB QIDRT [facility] Last Admin: 11/14/17 07:41 Dose: 3 ml Bumetanide (Bumex) 2 mg IVPUSH Q12H [facility] Last Admin: 11/14/17 08:31 Dose: 2 mg Clobetasol Propionate (Clobetasol 0.05%) 0 gm TOP BID PRN PRN Reason: Rash Digoxin (Lanoxin) 125 mcg PO DAILY@1300 [facility] Last Admin: 11/13/17 12:33 Dose: 125 mcg Diltiazem HCl (Cardizem Cd) 240 mg PO DAILY [facility] Last Admin: 11/14/17 08:37 Dose: 240 mg Docusate Sodium (Colace) 100 mg PO BID PRN PRN Reason: Constipation Last Admin: 11/12/17 11:32 Dose: 100 mg Enoxaparin Sodium (Lovenox) 40 mg SUBCUT Q24H [facility] Last Admin: 11/13/17 18:04 Dose: 40 mg Febuxostat (Uloric) 40 mg PO DAILY [facility] Last Admin: 11/14/17 08:38 Dose: 40 mg Magnesium Hydroxide (Milk Of Magnesia) 30 ml PO Q12H PRN PRN Reason: Constipation Magnesium Oxide (Magnesium Oxide) 400 mg PO BID [facility] Last Admin: 11/14/17 08:37 Dose: 400 mg Mometasone Furoate/Formoterol Fumar (Dulera 200-5 Mcg) 2 puff IH BIDRT [facility] Last Admin: 11/14/17 07:49 Dose: 2 puff Nebivolol (Bystolic) 10 mg PO BID [facility] Last Admin: 11/14/17 08:38 Dose: 10 mg Fluocinonide [Lidex (0.05% Top Soln] Ptom) 1 applic TOP BID [facility] Last Admin: 11/13/17 21:13 Dose: Not Given Non-Formulary Medication (Triamcinolone Acetonide [Triamcinolone Acetonide 0.5%] ) 1 applic TOP DAILY PRN PRN Reason: Rash Ondansetron HCl (Zofran) 4 mg IV Q4H PRN PRN Reason: Nausea/Vomiting Oxycodone HCl (Oxycodone) 5 mg PO Q4H PRN PRN Reason: Pain (moderate 4-6) Polyethylene Glycol (Miralax) 17 gm PO DAILY PRN PRN Reason: Constipation Potassium Chloride (Klor-Con M20) 40 meq PO BIDMEALS [facility] Last Admin: 11/14/17 08:36 Dose: 40 meq Sodium Chloride (Saline Flush) 10 ml FLUSH ASDIRECTED PRN PRN Reason: Keep Vein Open Tamsulosin HCl (Flomax) 0.4 mg PO DAILY [facility] Last Admin: 11/14/17 08:37 Dose: 0.4 mg Valsartan (Diovan) 160 mg PO BID [facility] Last Admin: 11/14/17 08:38 Dose: 160 mg Discontinued Medications Bumetanide (Bumex) 2 mg IVPUSH Q12H [facility] Last Admin: 11/12/17 07:43 Dose: 2 mg Bumetanide (Bumex) 2 mg IVPUSH ONETIME ONE Stop: 11/11/17 12:41 Last Admin: 11/11/17 13:33 Dose: 2 mg Bumetanide (Bumex) 2 mg IVPUSH Q12H [facility] Last Admin: 11/12/17 13:35 Dose: Not Given Diltiazem HCl (Diltiazem) 20 mg IVPUSH ONETIME ONE Stop: 11/11/17 13:01 Last Admin: 11/11/17 14:00 Dose: 20 mg Diltiazem HCl (Cardizem) 60 mg PO Q6H [facility] Last Admin: 11/13/17 04:30 Dose: 60 mg Diltiazem HCl 100 mg/ Sodium (Chloride) 100 mls @ 5 mls/hr IV TITRATE MARSHA; 5 MG /HR PRN Reason: Protocol Last Admin: 11/11/17 23:15 Dose: 10 mg/hr, 10 mls/hr Sodium Chloride (Normal Saline) 500 mls @ 10 mls/hr IV TITRATE ONE Stop: 11/14/17 07:43 Last Admin: 11/12/17 06:25 Dose: 10 mls/hr Warfarin Sodium (Coumadin) 5 mg PO DAILY [facility] Warfarin Sodium (Coumadin) 7.5 mg PO ONETIME ONE Stop: 11/11/17 14:31 Last Admin: 11/11/17 15:09 Dose: 7.5 mg Warfarin Sodium (Coumadin) 10 mg PO ONETIME ONE Stop: 11/12/17 10:01 Last Admin: 11/12/17 10:21 Dose: 10 mg Warfarin Sodium (Coumadin) 10 mg PO ONETIME ONE Stop: 11/13/17 10:01 Last Admin: 11/13/17 10:31 Dose: 10 mg Warfarin Sodium 10 mg/ (Warfarin Sodium 2.5 mg) 12.5 mg PO ONETIME ONE Stop: 11/14/17 09:01 - Exam Quality Assessment: Supplemental Oxygen, DVT Prophylaxis General: Alert, Oriented, Cooperative, Mild Distress Lungs: Decreased Breath Sounds. No: Crackles, Rales, Rhonchi, Wheezing Cardiovascular: Regular Rate, No Murmurs, Irregular Rhythm, Tachycardia (With activity) GI/Abdominal Exam: Soft, Non-Tender, No Organomegaly, No Distention Extremities: Non-Tender, Pedal Edema Skin: Warm, Dry - Problem List Review Problem List Initiated/Reviewed/Updated: Yes - My Orders Last 24 Hours: My Active Orders 11/13/17 08:51 Intake and Output Strict [RC] ASDIRECTED 11/13/17 09:00 Diltiazem [Cardizem CD] 240 mg PO DAILY 11/13/17 10:30 Magnesium Oxide 400 mg PO BID Potassium Chloride [Klor-Con M20] 40 meq PO BIDMEALS 11/15/17 05:00 BASIC METABOLIC PANEL,BMP [CHEM] Timed MAGNESIUM [CHEM] Timed 11/15/17 05:11 INR,PT,PROTHROMBIN TIME [COAG] AM - Plan Plan:: ASSESSMENT AND PLAN ATRIAL FIBRILLATION WITH RAPID VENTRICULAR RESPONSE-exact duration is unknown, likely present over the past 3 weeks. Likely contributing factor to current pulmonary edema and probable congestive heart failure. -Warfarin 12.5 mg by mouth today -Repeat INR in a.m. -Bystolic to 10 mg twice daily -Discontinue IV diltiazem -Diltiazem CD 240 mg by mouth daily -Digoxin 0.125 mg by mouth daily CONGESTIVE HEART FAILURE-obvious pulmonary and peripheral edema contributing to current symptoms. Problem list reports history of cardiomyopathy, patient reports that he is not aware of that. Echocardiogram shows ejection fraction in the range of 35-40%, formal report pending. -Strict 2 g sodium diet -Continue current therapy with ARB, beta donaldo, and digoxin -Hold oral furosemide -Bumex 2 mg IV every 12 hours COPD-known diagnosis, oxygen dependent. No evidence of acute exacerbation or underlying pulmonary infection. -Continue outpatient medical regimen -Supplemental oxygen as needed -Nebulized albuterol and duo nebs during hospitalization CHRONIC KIDNEY DISEASE STAGE III-renal function has remained fairly stable with current diuresis -Closely monitor urine output and renal function during hospital stay MAINTENANCE ISSUES -DVT prophylaxis; Lovenox 40 mg subcutaneous daily, until INR is therapeutic -GI prophylaxis; not indicated -Cooper catheter; not indicated -Nutrition; 2 g sodium diet -Nicotine dependence; not required CODE STATUS-FULL CODE ADMISSION STATUS-patient will be admitted to inpatient status, expect at least a 2 night hospital stay for evaluation and management of problems as outlined above. At the time of this admission I do not reasonably expected evaluation and management of this problem will require more than a 96 hour hospital stay. DISPOSITION-anticipate discharge to home after the hospital stay. PRIMARY CARE PROVIDER-Dr. Johnson
[2017-11-14] MEDS: FLUOCINONIDE TOP SCH ×2 (11:08→20:09)
[2017-11-14] MEDS: Digoxin 125 MCG Tab PO SCH (13:30)
[2017-11-14] MEDS: Enoxaparin 40 MG/0.4 ML Syringe SUBCUT SCH (16:34)
[2017-11-15] MEDS: Albuterol/Ipratropium 3.0-0.5 MG/3 ML Neb Soln NEB SCH ×4 (07:20→20:56)
[2017-11-15] MEDS: Bumetanide 1 MG/4 ML MDV IVPUSH SCH (07:23)
[2017-11-15] MEDS: Formoterol/Mometasone 200-5 MCG 8.8 GM Inhaler IH SCH ×2 (07:26→20:49)
[2017-11-15] MEDS ORDERED: Warfarin 2.5 MG Tab PO ONE (08:26)
[2017-11-15] MEDS: Diltiazem 120 MG Cap.CD PO SCH (08:42)
[2017-11-15] MEDS: Febuxostat 40 MG Tab PO SCH (08:43)
[2017-11-15] MEDS: Tamsulosin 0.4 MG Cap.ER PO SCH (08:43)
[2017-11-15] MEDS: FLUOCINONIDE TOP SCH ×2 (08:44→21:11)
[2017-11-15] MEDS: Magnesium Oxide 400 MG Tab PO SCH ×2 (08:44→20:49)
[2017-11-15] MEDS ORDERED: Warfarin 10 MG, Warfarin 2.5 MG PO ONE ×2 (09:00)
[2017-11-15] MEDS ORDERED: Bumetanide 2.5 MG/10 ML MDV IVPUSH SCH ×2 (09:00→21:00)
[2017-11-15] MEDS: Potassium Chloride 20 MEQ Tab.ER PO SCH ×2 (10:00→16:27)
[2017-11-15] MEDS ORDERED: Melatonin 3 MG Tab PO PRN (10:18)
--- NOTE | 2017-11-15 10:21 | PCM.PN ---
- General Info Date of Service: 11/15/17 Subjective Update: Mr. Sullivan has been stable since yesterday, diuresis has become somewhat more modest over the past few days. Continues to experience significant peripheral edema but feels as though his respiratory status has improved since admission. Functional Status: Reports: Tolerating Diet, Urinating - Review of Systems General: Denies: Fever, Chills Pulmonary: Reports: Shortness of Breath. Denies: Pleuritic Chest Pain, Cough, Sputum, Hemoptysis, Wheezing Cardiovascular: Reports: Dyspnea on Exertion, Edema. Denies: Chest Pain, Palpitations, Orthopnea, PND Gastrointestinal: Reports: No Symptoms - Patient Data Vitals - Most Recent: Last Vital Signs Temp 97 F 11/15/17 07:10 Pulse 113 H 11/15/17 08:42 Resp 18 11/15/17 07:10 BP 112/93 H 11/15/17 08:42 Pulse Ox 94 L 11/15/17 07:10 Weight - Most Recent: 336 lb 6.4 oz I&O - Last 24 Hours: Intake & Output 11/14/17 11/15/17 11/15/17 22:59 06:59 14:59 Intake Total 600 980 Output Total 1000 900 Balance -400 80 Lab Results Last 24 Hours: Laboratory Results - last 24 hr 11/15/17 11/15/17 Range/Units 04:30 04:30 PT 14.0 H (9.5-12.0) sec INR 1.29 H (0.80-1.20) Sodium 142 (140-148) mmol/L Potassium 4.5 (3.6-5.2) mmol/L Chloride 102 (100-108) mmol/L Carbon Dioxide 36 H (21-32) mmol/L Anion Gap 8.5 (5.0-14.0) mmol/L BUN 16 (7-18) mg/dL Creatinine 1.4 H (0.8-1.3) mg/dL Est Cr Clr Drug Dosing 51.65 mL/min Estimated GFR (MDRD) 50 L (>60) Glucose 99 (74-106) mg/dL Calcium 8.8 (8.5-10.1) mg/dL Magnesium 2.0 (1.8-2.4) mg/dL Med Orders - Current: Current Medications Acetaminophen (Tylenol) 650 mg PO Q4H PRN PRN Reason: Pain (Mild 1-3)/fever Last Admin: 11/14/17 20:12 Dose: 650 mg Albuterol (Ventolin Hfa) 0 gm INH Q4H PRN PRN Reason: Dyspnea Albuterol (Proventil Neb Soln) 2.5 mg NEB Q4H PRN PRN Reason: Shortness Of Breath/wheezing Albuterol/Ipratropium (Duoneb 3.0-0.5 Mg/3 Ml) 3 ml NEB QIDRT [facility] Last Admin: 11/15/17 07:20 Dose: 3 ml Bumetanide (Bumex) 4 mg IVPUSH Q12H [facility] Clobetasol Propionate (Clobetasol 0.05%) 0 gm TOP BID PRN PRN Reason: Rash Digoxin (Lanoxin) 125 mcg PO DAILY@1300 [facility] Last Admin: 11/14/17 13:30 Dose: 125 mcg Diltiazem HCl (Cardizem Cd) 240 mg PO DAILY [facility] Last Admin: 11/15/17 08:42 Dose: 240 mg Docusate Sodium (Colace) 100 mg PO BID PRN PRN Reason: Constipation Last Admin: 11/12/17 11:32 Dose: 100 mg Enoxaparin Sodium (Lovenox) 40 mg SUBCUT Q24H [facility] Last Admin: 11/14/17 16:34 Dose: 40 mg Febuxostat (Uloric) 40 mg PO DAILY [facility] Last Admin: 11/15/17 08:43 Dose: 40 mg Magnesium Hydroxide (Milk Of Magnesia) 30 ml PO Q12H PRN PRN Reason: Constipation Magnesium Oxide (Magnesium Oxide) 400 mg PO BID [facility] Last Admin: 11/15/17 08:44 Dose: 400 mg Melatonin (Melatonin) 9 mg PO BEDTIME PRN PRN Reason: Insomnia Mometasone Furoate/Formoterol Fumar (Dulera 200-5 Mcg) 2 puff IH BIDRT [facility] Last Admin: 11/15/17 07:26 Dose: 2 puff Nebivolol (Bystolic) 10 mg PO BID [facility] Last Admin: 11/15/17 08:40 Dose: 10 mg Fluocinonide [Lidex (0.05% Top Soln] Ptom) 1 applic TOP BID [facility] Last Admin: 11/15/17 08:44 Dose: Not Given Non-Formulary Medication (Triamcinolone Acetonide [Triamcinolone Acetonide 0.5%] ) 1 applic TOP DAILY PRN PRN Reason: Rash Ondansetron HCl (Zofran) 4 mg IV Q4H PRN PRN Reason: Nausea/Vomiting Oxycodone HCl (Oxycodone) 5 mg PO Q4H PRN PRN Reason: Pain (moderate 4-6) Last Admin: 11/15/17 01:24 Dose: 5 mg Polyethylene Glycol (Miralax) 17 gm PO DAILY PRN PRN Reason: Constipation Potassium Chloride (Klor-Con M20) 20 meq PO BIDMEALS [facility] Sodium Chloride (Saline Flush) 10 ml FLUSH ASDIRECTED PRN PRN Reason: Keep Vein Open Tamsulosin HCl (Flomax) 0.4 mg PO DAILY [facility] Last Admin: 11/15/17 08:43 Dose: 0.4 mg Valsartan (Diovan) 160 mg PO BID [facility] Last Admin: 11/15/17 08:42 Dose: 160 mg Discontinued Medications Bumetanide (Bumex) 2 mg IVPUSH Q12H [facility] Last Admin: 11/12/17 07:43 Dose: 2 mg Bumetanide (Bumex) 2 mg IVPUSH ONETIME ONE Stop: 11/11/17 12:41 Last Admin: 11/11/17 13:33 Dose: 2 mg Bumetanide (Bumex) 2 mg IVPUSH Q12H [facility] Last Admin: 11/12/17 13:35 Dose: Not Given Bumetanide (Bumex) 2 mg IVPUSH Q12H [facility] Last Admin: 11/15/17 07:23 Dose: 2 mg Diltiazem HCl (Diltiazem) 20 mg IVPUSH ONETIME ONE Stop: 11/11/17 13:01 Last Admin: 11/11/17 14:00 Dose: 20 mg Diltiazem HCl (Cardizem) 60 mg PO Q6H [facility] Last Admin: 11/13/17 04:30 Dose: 60 mg Diltiazem HCl 100 mg/ Sodium (Chloride) 100 mls @ 5 mls/hr IV TITRATE MARSHA; 5 MG /HR PRN Reason: Protocol Last Admin: 11/11/17 23:15 Dose: 10 mg/hr, 10 mls/hr Sodium Chloride (Normal Saline) 500 mls @ 10 mls/hr IV TITRATE ONE Stop: 11/14/17 07:43 Last Admin: 11/12/17 06:25 Dose: 10 mls/hr Potassium Chloride (Klor-Con M20) 40 meq PO BIDMEALS [facility] Last Admin: 11/15/17 10:00 Dose: Not Given Warfarin Sodium (Coumadin) 5 mg PO DAILY [facility] Warfarin Sodium (Coumadin) 7.5 mg PO ONETIME ONE Stop: 11/11/17 14:31 Last Admin: 11/11/17 15:09 Dose: 7.5 mg Warfarin Sodium (Coumadin) 10 mg PO ONETIME ONE Stop: 11/12/17 10:01 Last Admin: 11/12/17 10:21 Dose: 10 mg Warfarin Sodium (Coumadin) 10 mg PO ONETIME ONE Stop: 11/13/17 10:01 Last Admin: 11/13/17 10:31 Dose: 10 mg Warfarin Sodium 10 mg/ (Warfarin Sodium 2.5 mg) 12.5 mg PO ONETIME ONE Stop: 11/14/17 09:01 Last Admin: 11/14/17 11:12 Dose: 12.5 mg Warfarin Sodium 10 mg/ (Warfarin Sodium 2.5 mg) 12.5 mg PO ONETIME ONE Stop: 11/15/17 09:01 - Exam Quality Assessment: Supplemental Oxygen, DVT Prophylaxis General: Alert, Oriented, Cooperative, Mild Distress Lungs: Clear to Auscultation, Decreased Breath Sounds. No: Rales, Rhonchi, Wheezing Cardiovascular: Regular Rhythm, No Murmurs, Irregular Rhythm GI/Abdominal Exam: Soft, Non-Tender, No Organomegaly, No Distention Extremities: Non-Tender, Pedal Edema Skin: Warm, Dry, Intact - Problem List Review Problem List Initiated/Reviewed/Updated: Yes - My Orders Last 24 Hours: My Active Orders 11/14/17 09:31 Vital Signs [RC] Q4H 11/15/17 08:32 Potassium Chloride [Klor-Con M20] 20 meq PO BIDMEALS 11/15/17 09:00 Bumetanide [Bumex] 4 mg IVPUSH Q12H 11/15/17 10:18 Melatonin 9 mg PO BEDTIME PRN 11/16/17 05:00 BASIC METABOLIC PANEL,BMP [CHEM] Timed MAGNESIUM [CHEM] Timed 11/16/17 05:11 INR,PT,PROTHROMBIN TIME [COAG] AM - Plan Plan:: ASSESSMENT AND PLAN ATRIAL FIBRILLATION WITH RAPID VENTRICULAR RESPONSE-exact duration is unknown, likely present over the past 3 weeks. Likely contributing factor to current pulmonary edema and probable congestive heart failure. Rate control has improved significantly with current management, INR remained subtherapeutic. -Warfarin 12.5 mg by mouth today -Repeat INR in a.m. -Bystolic 10 mg twice daily -Diltiazem CD 240 mg by mouth daily -Digoxin 0.125 mg by mouth daily CONGESTIVE HEART FAILURE-obvious pulmonary and peripheral edema contributing to current symptoms. Problem list reports history of cardiomyopathy, patient reports that he is not aware of that. Echocardiogram shows ejection fraction in the range of 35-40%, formal report pending. -Strict 2 g sodium diet -Continue current therapy with ARB, beta donaldo, and digoxin -Hold oral furosemide -Bumex 4 mg IV every 12 hours COPD-known diagnosis, oxygen dependent. No evidence of acute exacerbation or underlying pulmonary infection. -Continue outpatient medical regimen -Supplemental oxygen as needed -Nebulized albuterol and duo nebs during hospitalization CHRONIC KIDNEY DISEASE STAGE III-renal function has remained fairly stable with current diuresis -Closely monitor urine output and renal function during hospital stay MAINTENANCE ISSUES -DVT prophylaxis; Lovenox 40 mg subcutaneous daily, until INR is therapeutic -GI prophylaxis; not indicated -Cooper catheter; not indicated -Nutrition; 2 g sodium diet -Nicotine dependence; not required CODE STATUS-FULL CODE ADMISSION STATUS-patient will be admitted to inpatient status, expect at least a 2 night hospital stay for evaluation and management of problems as outlined above. At the time of this admission I do not reasonably expected evaluation and management of this problem will require more than a 96 hour hospital stay. DISPOSITION-anticipate discharge to home after the hospital stay. PRIMARY CARE PROVIDER-Dr. Johnson
[2017-11-15] MEDS ORDERED: Bumetanide 2.5 MG/10 ML MDV IVPUSH ONE (10:45)
[2017-11-15] MEDS: Digoxin 125 MCG Tab PO SCH (13:19)
[2017-11-15] MEDS: Enoxaparin 40 MG/0.4 ML Syringe SUBCUT SCH (16:27)
[2017-11-15] MEDS: BUMETANIDE IVPUSH SCH ×2 (20:45)
--- NOTE | 2017-11-15 22:11 | PCM.SN ---
- Free Text/Narrative Note: time: [address] call [address] [place] [address]; o: blood pressure 106/62, would like to give IV Bumex 2mg instead of IV Bumex 4 mg a; CHF, low blood pressure p; give reduced amount of Bumex 2mg for tonight. continue present plan of care.
[2017-11-16] MEDS: Potassium Chloride 20 MEQ Tab.ER PO SCH (07:17)
[2017-11-16] MEDS: Albuterol/Ipratropium 3.0-0.5 MG/3 ML Neb Soln NEB SCH ×2 (08:02→11:06)
[2017-11-16] MEDS: Formoterol/Mometasone 200-5 MCG 8.8 GM Inhaler IH SCH (08:04)
[2017-11-16] MEDS: Tamsulosin 0.4 MG Cap.ER PO SCH (08:53)
[2017-11-16] MEDS: Diltiazem 120 MG Cap.CD PO SCH (08:53)
[2017-11-16] MEDS: Febuxostat 40 MG Tab PO SCH (08:54)
[2017-11-16] MEDS: Magnesium Oxide 400 MG Tab PO SCH (08:54)
[2017-11-16] MEDS: FLUOCINONIDE TOP SCH (08:55)
[2017-11-16] MEDS: BUMETANIDE IVPUSH SCH ×2 (10:05)
[2017-11-16 11:22] VITALS: BP 102/65
--- NOTE | 2017-11-16 12:40 | PCM.DCSUM1 ---
Discharge Summary - Hospital Course Brief History: Mr. Sullivan is a 72-year-old gentleman who is admitted as a direct admission from the clinic with increased shortness of breath, anasarca, and atrial fibrillation with rapid ventricular response. - Discharge Data Discharge Date: 11/16/17 Discharge Disposition: Home, [facility] 06 Condition: Fair - Discharge Diagnosis/Problem(s) (1) CKD (chronic kidney disease) stage 3, GFR 30-59 ml/min SNOMED Code(s): 662571131 ICD Code: N18.3 - CHRONIC KIDNEY DISEASE, STAGE 3 (MODERATE) Status: Acute Current Visit: Yes (2) Anasarca SNOMED Code(s): 417777408 ICD Code: R60.1 - GENERALIZED EDEMA Status: Acute Current Visit: Yes (3) Atrial fibrillation with rapid ventricular response SNOMED Code(s): 318398408082284 ICD Code: I48.91 - UNSPECIFIED ATRIAL FIBRILLATION Status: Acute Current Visit: Yes (4) CHF exacerbation SNOMED Code(s): 92678621 ICD Code: I50.9 - HEART FAILURE, UNSPECIFIED Status: Acute Current Visit : Yes (5) COPD (chronic obstructive pulmonary disease) with acute bronchitis SNOMED Code(s): 014449019912200 ICD Code: J44.0 - CHRONIC OBSTRUCTIVE PULMON DISEASE W ACUTE LOWER RESP INFCT Status: Chronic Current Visit: No - Patient Summary/Data Consults: Consultations 11/11/17 12:01 Consult to [employer] Operator Helper [CONS] Routine Comment: Physician Instructions: Quantity: Reason for Consult: Please review 2 g sodium diet 11/15/17 10:24 Consult to Physical Therapy [PT Evaluation and Treatment] [CONS] Routine Please Evaluate and Treat. PT Reason for Consult: endurance & strengthing Pending Discharge: No This query below is only for informational purposes and is not editable. Admission Diagnosis/Problem: CHF, Congestive heart failure Hospital Course: Mr. Sullivan is a 72-year-old gentleman who had baseline has known oxygen dependent COPD. For a period of 3 weeks prior to admission, he had developed symptoms of increased shortness of breath to the point where he was short of breath with even the most minimal of exertion, progressive fluid retention extending up both legs into the thighs almost to the buttocks and abdominal wall , as well as extremely poor exercise tolerance. In the week prior to admission he was seen and evaluated in the clinic at that time was noted to have atrial fibrillation with rapid ventricular response as well as marked anasarca. Was recommended to him at that time that he consider hospitalization for further management which he refused. An attempt was made to manage this as an outpatient which was unsuccessful. On the day of admission he was seen for follow-up by his primary care provider in the clinic, since the previous weeks symptoms and edema had worsened and the patient was referred to the hospital for further management and evaluation. On admission he was noted to have marked anasarca as well as atrial fibrillation with rapid ventricular response rates in the 130s to 140s. Initially he was treated with a diltiazem bolus dose of 20 mg and placed on a continuous infusion of diltiazem at 5 mg per hour. Diuresis was initiated with use of Bumex 2 mg every 12 hours. Over the course of the next several days hospitalization he diuresed well and was significantly improved at the time of discharge. Less peripheral edema and shortness of breath. Echocardiogram was obtained which showed an ejection fraction in the range of 35-40% on preliminary report. Also noted was left atrial enlargement and moderate mitral regurgitation. Formal report for the echocardiogram is pending from cardiology at the time of discharge. The week prior to admission he had been started on oral anticoagulation because of his atrial fibrillation. INR was subtherapeutic on admission, dose of warfarin was gradually increased during the hospital stay up to 12.5 mg per day. Despite the increased doses INR remains subtherapeutic at the time of discharge. Follow-up INR will be ordered for the day after discharge November 17 which will be obtained by home care service and called to the Coumadin clinic. The importance of a low-sodium diet was stressed several times during the hospitalization and he was seen by the dietitian to review a 2 g sodium diet. Use of the IV diltiazem resulted in good control of his atrial fibrillation rate and he was transitioned to oral diltiazem 240 mg daily his dose of his systolic was increased from 5 mg twice leg daily to 10 mg twice daily. He will be discharged home on oral Bumex 4 mg daily. Because of hypo-josé miguel anemia and hypomagnesemia he will be discharged home on oral potassium and magnesium supplementation. To evaluate for coronary artery disease and anginal equivalent contributing to current symptoms still be scheduled for [place] scan Cardiolite study on November 19. Home care will be arranged for him at the time of discharge with home physical therapy and occupational therapy. Follow-up appointment will be scheduled with his primary care provider Dr. Johnson within 5 days. Activity will be as tolerated and he will resume his usual diet. - Patient Instructions Diet: Low Sodium Activity: As Tolerated Other/Special Instructions: Please schedule follow-up appointment with Dr. Johnson within 5 days, BMP and magnesium level should be obtained at the time of follow-up appointment. Please contact oxygen provider to have oxygen humidified. Arrange for home care after discharge with home physical therapy and occupational therapy. Home care should plan to draw INR tomorrow November 17 and call to Coumadin clinic. Please schedule [place] scan Cardiolite study for November 19. Patient has been given a prescription for a 4 wheeled walker with a seat and should also slate picker a wedge for his bed to keep the head elevated while sleeping. - Discharge Plan Prescriptions/Med Rec: Bumetanide [Bumex] 4 mg PO DAILY #60 tablet Digoxin [Lanoxin] 125 mcg PO DAILY@1300 #30 tablet Diltiazem HCl [Diltiazem 24Hr Cd] 240 mg PO DAILY #30 cap.er.24h Magnesium Oxide 400 mg PO BID #60 tablet Nebivolol [Bystolic] 10 mg PO BID #60 tablet Potassium Chloride [Klor-Con M20] 20 meq PO BIDMEALS #60 tab.er Home Medications: Home Meds Albuterol Sulfate [Proair Hfa] 2 puff IH Q4HR PRN 03/19/15 [History] Clobetasol [Clobetasol Propionate 0.05%] 1 applic TOP BID PRN 03/19/15 [History] Febuxostat [Uloric] 40 mg PO DAILY 03/19/15 [History] Tadalafil [Cialis] 10 mg PO DAILY PRN 03/19/15 [History] Triamcinolone Acetonide [Triamcinolone Acetonide 0.5%] 1 applic TOP DAILY PRN [History] Valsartan 160 mg PO BID 03/19/15 [History] Tamsulosin [Flomax] 0.4 mg PO DAILY 03/11/16 [History] Fluocinonide [Lidex 0.05% Top Soln] 1 applic TOP BID 01/06/17 [History] Fluticasone/Salmeterol [Advair 250-50 Diskus] 1 puff IN BID 11/11/17 [History] Bumetanide [Bumex] 4 mg PO DAILY #60 tablet 11/16/17 [Rx] Digoxin [Lanoxin] 125 mcg PO DAILY@1300 #30 tablet 11/16/17 [Rx] Diltiazem HCl [Diltiazem 24Hr Cd] 240 mg PO DAILY #30 cap.er.24h 11/16/17 [Rx] Magnesium Oxide 400 mg PO BID #60 tablet 11/16/17 [Rx] Nebivolol [Bystolic] 10 mg PO BID #60 tablet 11/16/17 [Rx] Potassium Chloride [Klor-Con M20] 20 meq PO BIDMEALS #60 tab.er 11/16/17 [Rx] Warfarin Sodium 12.5 mg PO DAILY #0 11/16/17 [Rx] Patient Handouts: Heart Failure, [id number], Atrial Fibrillation, Easy-to- Read - Discharge Summary/Plan Comment DC Time >30 min.: Yes (45 minutes) - Patient Data Vitals - Most Recent: Last Vital Signs Temp 96.5 F 11/16/17 11:20 Pulse 71 11/16/17 11:20 Resp 18 11/16/17 11:20 BP 102/65 11/16/17 11:20 Pulse Ox 95 11/16/17 11:20 Weight - Most Recent: 332 lb 6.4 oz I&O - Last 24 hours: Intake & Output 11/15/17 11/16/17 11/16/17 22:59 06:59 14:59 Intake Total 940 740 720 Output Total 2200 800 Balance -1260 -60 720 Lab Results - Last 24 hrs: Laboratory Results - last 24 hr 11/16/17 11/16/17 Range/Units 05:11 05:50 PT 15.4 H (9.5-12.0) sec INR 1.42 H (0.80-1.20) Sodium 140 (140-148) mmol/L Potassium 4.7 (3.6-5.2) mmol/L Chloride 100 (100-108) mmol/L Carbon Dioxide 36 H (21-32) mmol/L Anion Gap 8.7 (5.0-14.0) mmol/L BUN 17 (7-18) mg/dL Creatinine 1.3 (0.8-1.3) mg/dL Est Cr Clr Drug Dosing 55.62 mL/min Estimated GFR (MDRD) 54 L (>60) Glucose 120 H (74-106) mg/dL Calcium 9.2 (8.5-10.1) mg/dL Magnesium 2.0 (1.8-2.4) mg/dL Med Orders - Current: Current Medications Acetaminophen (Tylenol) 650 mg PO Q4H PRN PRN Reason: Pain (Mild 1-3)/fever Last Admin: 11/14/17 20:12 Dose: 650 mg Albuterol (Ventolin Hfa) 0 gm INH Q4H PRN PRN Reason: Dyspnea Albuterol (Proventil Neb Soln) 2.5 mg NEB Q4H PRN PRN Reason: Shortness Of Breath/wheezing Albuterol/Ipratropium (Duoneb 3.0-0.5 Mg/3 Ml) 3 ml NEB QIDRT [facility] Last Admin: 11/16/17 11:06 Dose: 3 ml Bumetanide 2 mg/ Bumetanide 2 (mg) 4 mg IVPUSH Q12H [facility] Last Admin: 11/16/17 10:05 Dose: 2 mg Clobetasol Propionate (Clobetasol 0.05%) 0 gm TOP BID PRN PRN Reason: Rash Digoxin (Lanoxin) 125 mcg PO DAILY@1300 [facility] Last Admin: 11/15/17 13:19 Dose: 125 mcg Diltiazem HCl (Cardizem Cd) 240 mg PO DAILY [facility] Last Admin: 11/16/17 08:53 Dose: 240 mg Docusate Sodium (Colace) 100 mg PO BID PRN PRN Reason: Constipation Last Admin: 11/12/17 11:32 Dose: 100 mg Enoxaparin Sodium (Lovenox) 40 mg SUBCUT Q24H [facility] Last Admin: 11/15/17 16:27 Dose: 40 mg Febuxostat (Uloric) 40 mg PO DAILY [facility] Last Admin: 11/16/17 08:54 Dose: 40 mg Magnesium Hydroxide (Milk Of Magnesia) 30 ml PO Q12H PRN PRN Reason: Constipation Magnesium Oxide (Magnesium Oxide) 400 mg PO BID [facility] Last Admin: 11/16/17 08:54 Dose: 400 mg Melatonin (Melatonin) 9 mg PO BEDTIME PRN PRN Reason: Insomnia Last Admin: 11/15/17 23:17 Dose: 9 mg Mometasone Furoate/Formoterol Fumar (Dulera 200-5 Mcg) 2 puff IH BIDRT [facility] Last Admin: 11/16/17 08:04 Dose: 2 puff Nebivolol (Bystolic) 10 mg PO BID [facility] Last Admin: 11/16/17 08:53 Dose: 10 mg Fluocinonide [Lidex (0.05% Top Soln] Ptom) 1 applic TOP BID [facility] Last Admin: 11/16/17 08:55 Dose: Not Given Non-Formulary Medication (Triamcinolone Acetonide [Triamcinolone Acetonide 0.5%] ) 1 applic TOP DAILY PRN PRN Reason: Rash Ondansetron HCl (Zofran) 4 mg IV Q4H PRN PRN Reason: Nausea/Vomiting Oxycodone HCl (Oxycodone) 5 mg PO Q4H PRN PRN Reason: Pain (moderate 4-6) Last Admin: 11/15/17 01:24 Dose: 5 mg Polyethylene Glycol (Miralax) 17 gm PO DAILY PRN PRN Reason: Constipation Potassium Chloride (Klor-Con M20) 20 meq PO BIDMEALS [facility] Last Admin: 11/16/17 07:17 Dose: 20 meq Sodium Chloride (Saline Flush) 10 ml FLUSH ASDIRECTED PRN PRN Reason: Keep Vein Open Last Admin: 11/16/17 10:05 Dose: 10 ml Tamsulosin HCl (Flomax) 0.4 mg PO DAILY [facility] Last Admin: 11/16/17 08:53 Dose: 0.4 mg Valsartan (Diovan) 160 mg PO BID [facility] Last Admin: 11/16/17 08:53 Dose: 160 mg Discontinued Medications Bumetanide (Bumex) 2 mg IVPUSH Q12H [facility] Last Admin: 11/12/17 07:43 Dose: 2 mg Bumetanide (Bumex) 2 mg IVPUSH ONETIME ONE Stop: 11/11/17 12:41 Last Admin: 11/11/17 13:33 Dose: 2 mg Bumetanide (Bumex) 2 mg IVPUSH Q12H [facility] Last Admin: 11/12/17 13:35 Dose: Not Given Bumetanide (Bumex) 2 mg IVPUSH Q12H [facility] Last Admin: 11/15/17 07:23 Dose: 2 mg Bumetanide (Bumex) 2 mg IVPUSH ONETIME ONE Stop: 11/15/17 10:46 Last Admin: 11/15/17 10:40 Dose: 2 mg Diltiazem HCl (Diltiazem) 20 mg IVPUSH ONETIME ONE Stop: 11/11/17 13:01 Last Admin: 11/11/17 14:00 Dose: 20 mg Diltiazem HCl (Cardizem) 60 mg PO Q6H [facility] Last Admin: 11/13/17 04:30 Dose: 60 mg Diltiazem HCl 100 mg/ Sodium (Chloride) 100 mls @ 5 mls/hr IV TITRATE MARSHA; 5 MG /HR PRN Reason: Protocol Last Admin: 11/11/17 23:15 Dose: 10 mg/hr, 10 mls/hr Sodium Chloride (Normal Saline) 500 mls @ 10 mls/hr IV TITRATE ONE Stop: 11/14/17 07:43 Last Admin: 11/12/17 06:25 Dose: 10 mls/hr Potassium Chloride (Klor-Con M20) 40 meq PO BIDMEALS [facility] Last Admin: 11/15/17 10:00 Dose: Not Given Warfarin Sodium (Coumadin) 5 mg PO DAILY [facility] Warfarin Sodium (Coumadin) 7.5 mg PO ONETIME ONE Stop: 11/11/17 14:31 Last Admin: 11/11/17 15:09 Dose: 7.5 mg Warfarin Sodium (Coumadin) 10 mg PO ONETIME ONE Stop: 11/12/17 10:01 Last Admin: 11/12/17 10:21 Dose: 10 mg Warfarin Sodium (Coumadin) 10 mg PO ONETIME ONE Stop: 11/13/17 10:01 Last Admin: 11/13/17 10:31 Dose: 10 mg Warfarin Sodium 10 mg/ (Warfarin Sodium 2.5 mg) 12.5 mg PO ONETIME ONE Stop: 11/14/17 09:01 Last Admin: 11/14/17 11:12 Dose: 12.5 mg Warfarin Sodium 10 mg/ (Warfarin Sodium 2.5 mg) 12.5 mg PO ONETIME ONE Stop: 11/15/17 09:01 Last Admin: 11/15/17 10:37 Dose: 12.5 mg *Q Meaningful Use (DIS) - VTE *Q VTE Criteria *Q: - Stroke *Q Stroke Criteria *Q: - AMI *Q AMI Criteria *Q:
[2017-11-16] MEDS: Digoxin 125 MCG Tab PO SCH (12:44)
[2017-11-16] MEDS ORDERED: Warfarin 5 MG Tab PO SCH (13:00)
[2017-11-16] MEDS ORDERED: Warfarin 10 MG, Warfarin 2.5 MG PO ONE ×2 (13:15)
== END 2017-11-16 13:14 | disposition home health service (06) | DRG 308 ==
LOC: JP.ICU 11:03 → JP.MS 11-14 13:50
PROVIDERS: ADMIT Hospitalist; ATTEND Hospitalist
DX: I48.91 Unspecified atrial fibrillation (principal); I50.21 Acute systolic (congestive) heart failure; I13.0 Hypertensive heart and chronic kidney disease with heart failure and stage 1 through stage 4 chronic kidney disease, or unspecified chronic kidney disease; N18.3 Chronic kidney disease, stage 3 (moderate); Z87.891 Personal history of nicotine dependence; Z79.01 Long term (current) use of anticoagulants; R60.1 Generalized edema; J44.9 Chronic obstructive pulmonary disease, unspecified; Z99.81 Dependence on supplemental oxygen; Z98.1 Arthrodesis status; Z85.51 Personal history of malignant neoplasm of bladder; I34.0 Nonrheumatic mitral (valve) insufficiency
CPT/HCPCS: 36415; 80048; 80053; 80162; 83735; 85025; 85610; 93005; 93306; 94640; 94640-76; 97162-GP; A9270-GY; J1650; J3490; J7030; J7040; J7050; J7620; S0171

== ENCOUNTER 2018-01-13 12:15 | Emergency (ER) | payer MEDICARE ==
[2018-01-13 12:40] VITALS: BP 114/94
--- NOTE | 2018-01-13 13:09 | EDM.PDOC ---
ED HPI GENERAL MEDICAL PROBLEM - General Chief Complaint: Genitourinary Problem Stated Complaint: KIDNEY PROBLEMS Time Seen by Provider: 01/13/18 12:40 Source of Information: Reports: Patient, Family History Limitations: Reports: No Limitations - History of Present Illness INITIAL COMMENTS - FREE TEXT/NARRATIVE: 72-year-old male with chronic mild renal failure, congestive heart failure and COPD had some follow-up labs today at the clinic which showed an elevated BUN, rising creatinine, and lowering GFR. He feels fine but the clinic called him and told him to go to the emergency room where he may need admission for an acute kidney injury. However after talking with the patient we find that he just recently started metolazone 3 times a week, I discussed this with Dr. Kolb of nephrology as Dr. Kincaid was not available. The patient refused hospitalization, so as an outpatient we will stop metalozone and recheck laboratory on Friday, 6 days from now. He denies any shortness of breath or significant peripheral edema. He claims his last 20 pounds "of fluid" over the past month. Onset: Unknown/Unsure Associated Symptoms: Denies: Cough, Fever/Chills, Nausea/Vomiting, Shortness of Breath, Weakness - Related Data Allergies Allergy/AdvReac Type Severity Reaction Status Date / Time No Known Allergies Allergy Verified 11/11/17 11:47 Home Meds: Home Meds Albuterol Sulfate [Proair Hfa] 2 puff IH Q4HR PRN 03/19/15 [History] Valsartan 160 mg PO BID 03/19/15 [History] Tamsulosin [Flomax] 0.4 mg PO DAILY 03/11/16 [History] Fluticasone/Salmeterol [Advair 250-50 Diskus] 1 puff IN BID 11/11/17 [History] Digoxin [Lanoxin] 125 mcg PO DAILY@1300 #30 tablet 11/16/17 [Rx] Nebivolol [Bystolic] 10 mg PO BID #60 tablet 11/16/17 [Rx] Potassium Chloride [Klor-Con M20] 20 meq PO BIDMEALS #60 tab.er 11/16/17 [Rx] Bumetanide [Bumex] 2 mg PO BID 01/13/18 [History] Docusate Calcium 240 mg PO DAILY 01/13/18 [History] Febuxostat [Uloric] 40 mg PO DAILY 01/13/18 [History] Metolazone 2.5 mg PO ASDIRECTED 01/13/18 [History] Warfarin Sodium 12.5 mg PO ASDIRECTED 01/13/18 [History] Past Medical History HEENT History: Reports: Cataract Cardiovascular History: Reports: Afib, Cardiomyopathy, Heart Failure, High Cholesterol, Hypertension Respiratory History: Reports: COPD Genitourinary History: Reports: Other (See Below) Other Genitourinary History: stage 3 Kidney disease Musculoskeletal History: Reports: Back Pain, Chronic Endocrine/Metabolic History: Reports: Obesity/BMI 30+ Oncologic (Cancer) History: Reports: Bladder - Infectious Disease History Infectious Disease History: Reports: Chicken Pox - Past Surgical History HEENT Surgical History: Reports: Oral Surgery Neurological Surgical History: Reports: Spinal Fusion Social & Family History - Tobacco Use Smoking Status *Q: Never Smoker Years of Tobacco use: 45 Used Tobacco, but Quit: Yes Month Tobacco Last Used: 12 year Second Hand Smoke Exposure: Yes - Caffeine Use Caffeine Use: Reports: Coffee, Soda - Alcohol Use Days Per Week of Alcohol Use: 3 Number of Drinks Per Day: 2 Total Drinks Per Week: 6 - Recreational Drug Use Recreational Drug Use: No ED ROS GENERAL - Review of Systems Review Of Systems: See Below Constitutional: Denies: Fever, Chills, Malaise Respiratory: Denies: Shortness of Breath, Cough Cardiovascular: Denies: Chest Pain, Palpitations GI/Abdominal: Denies: Abdominal Pain, Nausea, Vomiting Neurological: Denies: Headache ED EXAM, GENERAL - Physical Exam Exam: See Below Exam Limited By: No Limitations General Appearance: Alert, No Apparent Distress Head: Atraumatic Respiratory/Chest: No Respiratory Distress, Lungs Clear Cardiovascular: Regular Rate, Rhythm Extremities: Pedal Edema (Just a trace of bilateral pedal edema) Neurological: Alert, Oriented Psychiatric: Normal Affect, Normal Mood Skin Exam: Warm, Dry Course - Vital Signs Last Recorded V/S: Last Vital Signs Temp 96.7 F 01/13/18 12:38 Pulse 64 01/13/18 12:38 Resp 18 01/13/18 12:38 BP 114/94 H 01/13/18 12:38 Pulse Ox 92 L 01/13/18 12:38 - Re-Assessments/Exams Free Text/Narrative Re-Assessment/Exam: 01/13/18 13:17 In review of the laboratory levels, creatinine has risen from 1.98 to 2.09, BUN has risen from 51 to 90 and GFR is fallen to 31%. These labs will be retested on Friday next week, and the patient will return sooner if he develops shortness of breath or other concerning symptoms. His intentions are to call the clinic to talk to either his primary provider or nephrology to get the labs ordered for next Friday. Departure - Departure Time of Disposition: 13:26 Disposition: Home, Self-Care 01 Condition: Good Clinical Impression: CKD (chronic kidney disease) stage 3, GFR 30-59 ml/min - Discharge Information Instructions: Chronic Kidney Disease, Adult Referrals: Elliott Johnson MD [Primary Care Provider] - Forms: ED Department Discharge Care Plan Goals: Stop metolazone, continue your other medications as prescribed. Take 1 L of extra water over the next 24-48 hours, and avoid salt intake. Recheck laboratory on Friday of next week, return sooner if worsening such as shortness of breath or edema.
== END 2018-01-13 13:26 | disposition home or self-care (01) ==
LOC: JP.ED 12:15
DX: I13.0 Hypertensive heart and chronic kidney disease with heart failure and stage 1 through stage 4 chronic kidney disease, or unspecified chronic kidney disease (principal); I50.9 Heart failure, unspecified; N18.3 Chronic kidney disease, stage 3 (moderate); Z79.899 Other long term (current) drug therapy; E78.00 Pure hypercholesterolemia, unspecified; E66.9 Obesity, unspecified
CPT/HCPCS: 99283

== ENCOUNTER 2019-08-22 13:52 | Emergency (ER) | payer MEDICARE ==
--- NOTE | 2019-08-22 14:38 | EDM.PDOC ---
ED HPI GENERAL MEDICAL PROBLEM - General Chief Complaint: Respiratory Problem Stated Complaint: SHORTNESS OF BREATH Time Seen by Provider: 08/22/19 14:38 Source of Information: Reports: Patient, Family History Limitations: Reports: No Limitations - History of Present Illness INITIAL COMMENTS - FREE TEXT/NARRATIVE: Alert fairly large in stature 74 yo male present with shortness of breath, vague chest pain, significant bilateral leg edema with weeping from left leg whom refuses to get out of the wheelchair to get on an examination bed. He refuses to be admitted before additional history or examination obtained. patient has been feeling ill for the last 2-3 days. Patient tripped yesterday while coming up the steps falling onto his left arm and chest. Patient had some mild chest discomfort yesterday but not significant chest discomfort is more significant today. Patient has pain with taking a deep breath. Patient is on Coumadin for chronic anticoagulation due to A. fib. Patient's Coumadin level was slightly low last week and states he has been taken his Coumadin as directed. He takes 5 mg tablets and alternates with 5 and 10 mg dosing. Patient may not have taken all of his routine medications , Friday and Friday morning. Patient denies fever, headache, sore throat, cough or URI symptoms. He has had usual loose stools in normal color and frequency today. No constipation. No urinary symptoms or concerns. Bill did not feel well thru today and does no remember which days he skipped his medications or exactly which medications. Patient is on Digoxin for rate control at 125mcg per day. - Related Data Allergies Allergy/AdvReac Type Severity Reaction Status Date / Time No Known Allergies Allergy Verified 08/22/19 14:18 Home Meds: Home Meds Albuterol Sulfate [Proair Hfa] 2 puff IH Q4HR PRN 03/19/15 [History] Tamsulosin [Flomax] 0.4 mg PO DAILY 03/11/16 [History] Fluticasone/Salmeterol [Advair 250-50 Diskus] 2 puff IN BID 11/11/17 [History] Digoxin [Lanoxin] 125 mcg PO DAILY@1300 #30 tablet 11/16/17 [Rx] Potassium Chloride [Klor-Con M20] 20 meq PO BIDMEALS #60 tab.er 11/16/17 [Rx] Bumetanide [Bumex] 4 mg PO DAILY 01/13/18 [History] Docusate Calcium 240 mg PO DAILY 01/13/18 [History] Febuxostat [Uloric] 40 mg PO DAILY 01/13/18 [History] Warfarin Sodium 5 mg PO .MON WED Fri01/13/18 [History] metOLazone [Metolazone] 2.5 mg PO ASDIRECTED 01/13/18 [History] Finasteride 5 mg PO DAILY 08/04/19 [History] Nebivolol [Bystolic] 5 mg PO BID 08/04/19 [History] Warfarin Sodium 10 mg PO .TUE, THUR, SAT, SUN 08/04/19 [History] predniSONE [Prednisone] 10 mg PO DAILY 08/04/19 [History] Past Medical History HEENT History: Reports: Cataract Cardiovascular History: Reports: Afib, Cardiomyopathy, Heart Failure, High Cholesterol, Hypertension Respiratory History: Reports: COPD Genitourinary History: Reports: Other (See Below) Other Genitourinary History: stage 3 Kidney disease Musculoskeletal History: Reports: Back Pain, Chronic Endocrine/Metabolic History: Reports: Obesity/BMI 30+ Oncologic (Cancer) History: Reports: Bladder - Infectious Disease History Infectious Disease History: Reports: Chicken Pox, Measles, Mumps - Past Surgical History HEENT Surgical History: Reports: Oral Surgery Male Surgical History: Reports: Cystectomy, Other (See Below) Other Male Surgeries/Procedures: POLYPS REMOMED IN BLADDER Neurological Surgical History: Reports: Spinal Fusion Musculoskeletal Surgical History: Reports: Arthroscopic Knee Social & Family History - Tobacco Use Smoking Status *Q: Former Smoker Years of Tobacco use: 50 Packs/Tins Daily: 1 Used Tobacco, but Quit: Yes Month/Year Tobacco Last Used: - Caffeine Use Caffeine Use: Reports: Coffee - Alcohol Use Date of Last Drink: 08/19/19 Time of Last Drink: 22:00 - Recreational Drug Use Recreational Drug Use: No ED ROS GENERAL - Review of Systems Review Of Systems: See Below Constitutional: Reports: Weakness, Fatigue, Night Sweats, Diaphoresis. Denies: Fever, Chills HEENT: Reports: No Symptoms Respiratory: Reports: Shortness of Breath, Pleuritic Chest Pain, Cough (slight intermittent over christopher last 3-4 days) Cardiovascular: Reports: Dyspnea on Exertion, Edema (significant increase left worse than right, too swollen to wear compression stocking the last week), Orthopnea (Unable to sleep flat (not new but worse)), Palpitations. Denies: Chest Pain, Lightheadedness, Syncope Endocrine: Reports: Fatigue. Denies: Polydypsia, Polyuria GI/Abdominal: Reports: Diarrhea (chronic no change), Decreased Appetite. Denies : Abdominal Pain, Black Stool, Bloody Stool, Constipation, Difficulty Swallowing , Hematemesis, Hematochezia, Nausea, Vomiting : Reports: No Symptoms Musculoskeletal: Reports: Shoulder Pain (left shoulder), Arm Pain (left shoulder ), Back Pain (chronic), Muscle Stiffness. Denies: Neck Pain, Hand Pain , Foot Pain Skin: Reports: Change in Color (bilateral lower leg swelling with increased in erythema on left greater than right. Weeping form left lwoer leg). Denies: Diaphoresis, Dryness, Bruising, Pruritis Neurological: Reports: No Symptoms, Difficulty Walking (not new but worsen due to swelling) Psychiatric: Reports: No Symptoms Hematologic/Lymphatic: Reports: No Symptoms Immunologic: Reports: No Symptoms ED EXAM, GENERAL - Physical Exam Exam: See Below Exam Limited By: No Limitations General Appearance: Alert, WD/WN, Mild Distress, Obese. No: Lethargic Eye Exam: Bilateral Eye: EOMI, PERRL Ears: Normal External Exam, Normal Canal, Hearing Grossly Normal, Normal TMs ( cerumen noted) Nose: Normal Inspection, Normal Mucosa Throat/Mouth: Normal Inspection, Normal Lips, Normal Teeth, Normal Gums, Normal Oropharynx, Normal Voice, No Airway Compromise Head: Atraumatic, Normocephalic Neck: Normal Inspection, Supple, Full Range of Motion Respiratory/Chest: Decreased Breath Sounds, Crackles (slight bilateral bases), Wheezing, Prolonged Expiration. No: Chest Non-Tender (tender to palpation left anterior chest and AC joint. ), Rales, Rhonchi, Stridor, Pleural Rub, Accessory Muscle Use Cardiovascular: Normal Peripheral Pulses, No JVD, No Murmur, Tachycardia, Irregularly Irregular GI/Abdominal: Normal Bowel Sounds, Soft, Non-Tender, No Distention, Other ( limited due to abdominal girth and body habitus (siding in wheelchair) refused to be on examination bed) (Male) Exam: Deferred Rectal (Males) Exam: Deferred Back Exam: Normal Inspection. No: CVA Tenderness (R), CVA Tenderness (L), Decreased Range of Motion, Paraspinal Tenderness, Vertebral Tenderness Extremities: Normal Inspection (except for bilateral lower legs), Normal Range of Motion (bilateral upper extremities, hip and knees. Limited ROM of bilateral feet and ankles due to swelling), Pedal Edema (tenderness with +3 pitting edema left greater than right.) Neurological: Alert, Oriented, CN II-XII Intact, Normal Cognition, No Motor/ Sensory Deficits, Abnormal Gait (unable to assess ). No: Confused, Disoriented , Memory Loss Remote Events, Memory Loss Recent Events Psychiatric: Normal Affect, Normal Mood, Other (defensive and demanding ( refuses to get out of wheelchair or admission to hospital before any history or examination questions)) Skin Exam: Warm, Dry, Intact, Normal Color, No Rash, Erythema (bilateral lower legs left greater than right with pitting edema noted due to water retention of PVD), Rash (weeping serous drainage left distal third lateral lower leg ). No: Diaphoretic ED RESPIRATORY PROCEDURES - Additional/Other Procedure(s) Other (Free Text) Procedure(s): Socks and shoes removed. Dressing/bandage.saturated removed from left leg. Absorbant dress ing placed left distal third lateral lower leg. Bilateral legs from arch or foot to knee. Each leg wrapped with: 2 Kerlix then 3 Ridge wraps 3in x 1 and 4in x 2 due to pitting edema and weeping left lower leg. EKG INTERPRETATION EKG Date: 08/22/19 Time: 15:15 Rhythm: A-Fib Rate (Beats/Min): 122 [place]: Other (low voltage due to body habitus) P-Wave: Variable QRS: Normal ST-T: Other (variable ST T wave changes noted on Oct 2017 to be unchanged) QT: Normal (improved from 486 on EKG 10/2017) Comparison: Change From Previous EKG (Prolonged Qt now shortened at 436) Course - Vital Signs Last Recorded V/S: Last Vital Signs Temp 36.3 C 08/22/19 14:36 Pulse 78 08/22/19 18:05 Resp 18 08/22/19 18:05 BP 133/55 L 08/22/19 18:05 Pulse Ox 96 08/22/19 18:05 - Orders/Labs/Meds Orders: Active Orders 24 hr Category Date Time Status EKG Documentation Completion [RC] ASDIRECTED Care 08/22/19 14:42 Active Peripheral IV Care [RC] . DIRECTED Care 08/22/19 14:42 Active Vital Signs [RC] PFP Care 08/22/19 14:41 Active Peripheral IV Insertion Adult [OM.PC] Urgent Oth 08/22/19 14:41 Ordered EKG 12 Lead [EK] Urgent Ther 08/22/19 14:41 Ordered Labs: Laboratory Tests 08/22/19 08/22/19 08/22/19 Range/Units 14:54 15:12 15:12 WBC 13.2 H (4.5-11.0) K/uL RBC 4.87 (4.30-5.90) M/uL Hgb 14.2 (12.0-15.0) g/dL Hct 45.6 (40.0-54.0) % MCV 94 (80-98) fL MCH 29 (27-31) pg MCHC 31 L (32-36) % Plt Count 191 (150-400) K/uL Neut % (Auto) 91 H (36-66) % Lymph % (Auto) 4 L (24-44) % [place] % (Auto) 5 (2-6) % Eos % (Auto) 0 L (2-4) % Baso % (Auto) 0 (0-1) % PT (9.5-12.0) sec INR (0.80-1.20) D-Dimer, Quantitative 448 H (0.0-400.0) ng/mL Sodium (140-148) mmol/L Potassium (3.6-5.2) mmol/L Chloride (100-108) mmol/L Carbon Dioxide (21-32) mmol/L Anion Gap (5.0-14.0) mmol/L BUN (7-18) mg/dL Creatinine (0.8-1.3) mg/dL Est Cr Clr Drug Dosing mL/min Estimated GFR (MDRD) (>60) Glucose (74-106) mg/dL Calcium (8.5-10.1) mg/dL Magnesium (1.8-2.4) mg/dL Troponin I (0.000-0.056) ng/mL NT-Pro-B Natriuret Pep (5-450) pg/mL Urine Color Yellow (YELLOW) Urine Appearance Clear (CLEAR) Urine pH 5.5 (5.0-8.0) Ur Specific [place] 1.015 (1.008-1.030) Urine Protein Negative (NEGATIVE) mg/dL Urine Glucose (UA) Negative (NEGATIVE) mg/dL Urine Ketones Negative (NEGATIVE) mg/dL Urine Occult Blood Trace-lysed H (NEGATIVE) Urine Nitrite Negative (NEGATIVE) Urine Bilirubin Negative (NEGATIVE) Urine Urobilinogen 0.2 (0.2-1.0) EU/dL Ur Leukocyte Esterase Negative (NEGATIVE) Urine RBC Not seen (0-5) Urine WBC Not seen (0-5) Ur Epithelial Cells Rare Amorphous Sediment Not seen Urine Bacteria Not seen Urine Mucus Not seen Digoxin (0.90-2.00) ng/mL 08/22/19 08/22/19 08/22/19 Range/Units 15:12 15:12 15:12 WBC (4.5-11.0) K/uL RBC (4.30-5.90) M/uL Hgb (12.0-15.0) g/dL Hct (40.0-54.0) % MCV (80-98) fL MCH (27-31) pg MCHC (32-36) % Plt Count (150-400) K/uL Neut % (Auto) (36-66) % Lymph % (Auto) (24-44) % [place]imes % (Auto) (2-6) % Eos % (Auto) (2-4) % Baso % (Auto) (0-1) % PT 14.8 H (9.5-12.0) sec INR 1.40 H (0.80-1.20) D-Dimer, Quantitative (0.0-400.0) ng/mL Sodium 142 (140-148) mmol/L Potassium 5.1 (3.6-5.2) mmol/L Chloride 105 (100-108) mmol/L Carbon Dioxide 31 (21-32) mmol/L Anion Gap 11.1 (5.0-14.0) mmol/L BUN 28 H D (7-18) mg/dL Creatinine 1.4 H (0.8-1.3) mg/dL Est Cr Clr Drug Dosing 55.97 mL/min Estimated GFR (MDRD) 49 L (>60) Glucose 136 H (74-106) mg/dL Calcium 9.5 (8.5-10.1) mg/dL Magnesium (1.8-2.4) mg/dL Troponin I 0.051 (0.000-0.056) ng/mL NT-Pro-B Natriuret Pep 2157 H (5-450) pg/mL Urine Color (YELLOW) Urine Appearance (CLEAR) Urine pH (5.0-8.0) Ur Specific [place] (1.008-1.030) Urine Protein (NEGATIVE) mg/dL Urine Glucose (UA) (NEGATIVE) mg/dL Urine Ketones (NEGATIVE) mg/dL Urine Occult Blood (NEGATIVE) Urine Nitrite (NEGATIVE) Urine Bilirubin (NEGATIVE) Urine Urobilinogen (0.2-1.0) EU/dL Ur Leukocyte Esterase (NEGATIVE) Urine RBC (0-5) Urine WBC (0-5) Ur Epithelial Cells Amorphous Sediment Urine Bacteria Urine Mucus Digoxin 0.69 L (0.90-2.00) ng/mL 08/22/19 Range/Units 15:12 WBC (4.5-11.0) K/uL RBC (4.30-5.90) M/uL Hgb (12.0-15.0) g/dL Hct (40.0-54.0) % MCV (80-98) fL MCH (27-31) pg MCHC (32-36) % Plt Count (150-400) K/uL Neut % (Auto) (36-66) % Lymph % (Auto) (24-44) % [place] % (Auto) (2-6) % Eos % (Auto) (2-4) % Baso % (Auto) (0-1) % PT (9.5-12.0) sec INR (0.80-1.20) D-Dimer, Quantitative (0.0-400.0) ng/mL Sodium (140-148) mmol/L Potassium (3.6-5.2) mmol/L Chloride (100-108) mmol/L Carbon Dioxide (21-32) mmol/L Anion Gap (5.0-14.0) mmol/L BUN (7-18) mg/dL Creatinine (0.8-1.3) mg/dL Est Cr Clr Drug Dosing mL/min Estimated GFR (MDRD) (>60) Glucose (74-106) mg/dL Calcium (8.5-10.1) mg/dL Magnesium 2.0 (1.8-2.4) mg/dL Troponin I (0.000-0.056) ng/mL NT-Pro-B Natriuret Pep (5-450) pg/mL Urine Color (YELLOW) Urine Appearance (CLEAR) Urine pH (5.0-8.0) Ur Specific [place] (1.008-1.030) Urine Protein (NEGATIVE) mg/dL Urine Glucose (UA) (NEGATIVE) mg/dL Urine Ketones (NEGATIVE) mg/dL Urine Occult Blood (NEGATIVE) Urine Nitrite (NEGATIVE) Urine Bilirubin (NEGATIVE) Urine Urobilinogen (0.2-1.0) EU/dL Ur Leukocyte Esterase (NEGATIVE) Urine RBC (0-5) Urine WBC (0-5) Ur Epithelial Cells Amorphous Sediment Urine Bacteria Urine Mucus Digoxin (0.90-2.00) ng/mL Meds: Medications Discontinued Medications Generic Name Dose Route Start Last Admin Trade Name Freq PRN Reason Stop Dose Admin Digoxin 125 mcg 08/22/19 15:53 08/22/19 16:13 Lanoxin IVPUSH 08/22/19 15:54 125 mcg ONETIME ONE Administration Furosemide 80 mg 08/22/19 16:04 08/22/19 16:13 Lasix IVPUSH 08/22/19 16:05 80 mg ONETIME ONE Administration Sodium Chloride 10 ml 08/22/19 14:41 08/22/19 16:14 Saline Flush FLUSH 10 ml ASDIRECTED PRN Administration Keep Vein Open - Radiology Interpretation Free Text/Narrative:: CXR PA/LAT: Mild cardiomegaly noted with no obvious signs of fluid overload or infiltrate. - Re-Assessments/Exams Free Text/Narrative Re-Assessment/Exam: Patient examined with and son in law at bedside. Patient is very resistant to cares and treatment, refused to get up out of wheelchair, lay flat for any examination or testing and will NOT be admitted or discuss admission. Patient appears stable no outward signs of respiratory distress, diaphoreses or increased work of breathing, HR 100 to 145 (wavering quickly between) found to be in a fib with RVR, known chronic a fib, elevated blood pressure, significant bilateral lower extremity edema with saturated socking on left and morbid obesity. Left shoulder and upper chest examined. Patient has reproducible pain to palpation left anterior superior chest with focal pain over AC joint and trapezius muscle. Full ROM of left wrist, elbow and shoulder (with slight weakness at horizon). Previous Cardiac work-up reviewed from October 2017 which included Echocardiogram: Summary: technically difficult (body habitus). EF 35-40% ( moderately reduced with reduced right sided function. Bilateral atrial enlargement noted. Technical unable to assess diastolic function. 08/22/19 14:40 Patient is offered oral medication for pain as he has not taken anything due to unable to take ASA with Coumadin. He is on chronic steroid for respiratory concerns. I offered Tylenol and/or [place] for pain. Patient declined need on two occasions during visit. Patient and family updated regarding test results and need for IV medication including Digoxin (missed dose and below therapeutic window 0.69). 125 mcg given. Patient encouraged to continue current digoxin medication this evening and/or tomorrow per routine medication use. Reviewed CXR results. Lasix 80mg IV to diuresis in order to improve breathing and chest pressure/pain. BNP 2157 indicating fluid overload with left and right sided heart failure with bilateral edema with history of not taking Zaroxolyn on Friday and Bumex 2mg BID rather than as directed as once daily. Troponin is within normal range no previous available likely due to chronic heart strain with fluid overload and failure. Patient has not been using albuterol (DuoNeb given during ER visit). D dimer mildly elevated at 448 can be explained with obesity and chronic renal insufficiency. I do not believed benefit of CTA Chest out weights risk with radiation and worsening respiratory status with lying flat for study at this time. 08/22/19 15:30 Patient urinated more than 4 time in the last 2 hours and breathing is improved. Patient continue to have left chest pain but still declines oral medication for pain. Patient has been taking Prednisone 10mg daily as directed. He has not been taking Advair as directed 2 puff BID instead 2puff in am and 2 at night. Patient INR 1.4 (below therapeutic window) might as well not be taking at all. Recommended increased dose to 10mg daily and recheck on this week as planned. Legs are wrapped with Kerlix and ridge wraps. 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 08/22/19 17:30 Departure - Departure Time of Disposition: 17:45 Disposition: Home, Self-Care 01 Clinical Impression: Congestive heart failure, Leg edema, Chronic atrial fibrillation with RVR, Chest pain in adult, Chest wall soft tissue injury, Left shoulder strain - Discharge Information Instructions: Edema, What You Need to Know About Warfarin, Heart Failure Action Plan, Nonspecific Chest Pain, Elastic Bandage and RICE, Physical Activity With Heart Disease, Heart Failure, Heart Failure Exacerbation, Atrial Fibrillation, Chest Wall Pain, Peripheral Edema Referrals: Elliott Johnson MD [Primary Care Provider] - 3 Days (Call Friday am for follow -up and repeat INR in ) Forms: ED Department Discharge Additional Instructions: 1. Coumadin 10 mg daily until recheck or dosing change. INR 1.4 today. Recheck on as planned for adjustment. 2. Potassium Hold tonight and tomorrow night. Take am dosing due to 5.1 today. 3. Leave Ridge wraps in place until Friday. 4. Friday am remove Ridge Wraps and allpy elastic compression garment before getting out of bed. 5. Take your Bumex as directed. Ask if BID dosing appropriate or 4mg once daily better. 6. Take ZAROXOLYN as directed. 7. Take Digoxin as directed. (NOT NOT SKIP DOSING). 8. [place] 1-2 tablets at night for pain, do not take with alcohol. 9. Return to ER if increased in chest pain and trouble breathing as a CT to ensure no pulmonary embolism would be the next step. 10. Troponin is mildly elevated likely due to heart strain due to additional fluid. 11. I can not rule out Pulmonary Embolism at this time but I do not think the benefit of CT Chest with contrast at this time out weigh the benefit. 12. Increased Advair to recommended 2 puffs in am and 2 in pm. 13. Consider Nephrology consult for continuing edema with renal insufficiency in light of heart failure. - Problem List & Annotations (1) Congestive heart failure SNOMED Code(s): 41633412 Code(s): I50.9 - HEART FAILURE, UNSPECIFIED Status: Acute (2) Leg edema SNOMED Code(s): 561834536 Code(s): R60.0 - LOCALIZED EDEMA Status: Acute (3) Chronic atrial fibrillation with RVR SNOMED Code(s): 232457706, 670747884889626 Code(s): I48.2 - CHRONIC ATRIAL FIBRILLATION Status: Acute (4) Chest wall soft tissue injury SNOMED Code(s): 72131310 Code(s): S29.9XXA - UNSPECIFIED INJURY OF THORAX, INITIAL ENCOUNTER Status : Acute (5) CKD (chronic kidney disease) stage 3, GFR 30-59 ml/min SNOMED Code(s): 393185617 Code(s): N18.3 - CHRONIC KIDNEY DISEASE, STAGE 3 (MODERATE) Status: Acute (6) Cardiomyopathy SNOMED Code(s): 02564791 Code(s): I42.9 - CARDIOMYOPATHY, UNSPECIFIED Status: Chronic (7) COPD (chronic obstructive pulmonary disease) with acute bronchitis SNOMED Code(s): 350929644948035 Code(s): J44.0 - CHRONIC OBSTRUCTIVE PULMON DISEASE W ACUTE LOWER RESP INFCT Status: Chronic - My Orders Last 24 Hours: My Active Orders 08/22/19 14:41 Vital Signs [RC] PFP Peripheral IV Insertion Adult [OM.PC] Urgent EKG 12 Lead [EK] Urgent 08/22/19 14:42 EKG Documentation Completion [RC] ASDIRECTED Peripheral IV Care [RC] . DIRECTED - Assessment/Plan Last 24 Hours: My Active Orders 08/22/19 14:41 Vital Signs [RC] PFP Peripheral IV Insertion Adult [OM.PC] Urgent EKG 12 Lead [EK] Urgent 08/22/19 14:42 EKG Documentation Completion [RC] ASDIRECTED Peripheral IV Care [RC] . DIRECTED
[2019-08-22] MEDS ORDERED: Sodium Chloride 0.9% 10 ML Syringe FLUSH PRN (14:41)
--- NOTE | 2019-08-22 15:46 | CRLCR ---
INDICATION: Shortness of breath TECHNIQUE: Chest 1 views COMPARISON: CT chest November 07, 2017. FINDINGS: Cardiovascular and mediastinum: Heart size and vasculature are normal in caliber and appearance. Lungs and pleural spaces: Lungs are clear. No sign of infiltrate or mass. No sign of pleural effusion. No pneumothorax. Bones and soft tissues: No significant findings. IMPRESSION: Unremarkable chest. No specific finding to explain shortness of breath. Dictated by Addison Gaytan MD @ Aug 22 2019 3:40PM Signed by Dr. Adidson Gaytan @ Aug 22 2019 3:43PM
[2019-08-22] MEDS ORDERED: Digoxin 500 MCG/2 ML Amp IVPUSH ONE (15:53)
[2019-08-22] MEDS ORDERED: Furosemide 40 MG/4 ML VIAL IVPUSH ONE (16:04)
[2019-08-22 18:06] VITALS: BP 133/55; PULSE 78
== END 2019-08-22 18:26 | disposition home or self-care (01) ==
LOC: JP.ED 13:52
DX: S46.912A Strain of unspecified muscle, fascia and tendon at shoulder and upper arm level, left arm, initial encounter (principal); S29.9XXA Unspecified injury of thorax, initial encounter; I48.2 Chronic atrial fibrillation; I13.0 Hypertensive heart and chronic kidney disease with heart failure and stage 1 through stage 4 chronic kidney disease, or unspecified chronic kidney disease; N18.3 Chronic kidney disease, stage 3 (moderate); I50.9 Heart failure, unspecified; J44.9 Chronic obstructive pulmonary disease, unspecified; Z79.01 Long term (current) use of anticoagulants; Z87.891 Personal history of nicotine dependence; W10.9XXA Fall (on) (from) unspecified stairs and steps, initial encounter
CPT/HCPCS: 36415; 71046; 80048; 80162; 81001; 83735; 83880; 84484; 85025; 85379; 85610; 93005; 96374; 96375; 99285; J1160; J1940; 99284

== ENCOUNTER 2020-01-06 10:00 | Emergency (ER) | payer MEDICARE ==
[2020-01-06] MEDS ORDERED: Ampicillin/Sulbactam Na 3 GM in Sodium Chloride 0.9% 100 ML IV ONE (10:52)
--- NOTE | 2020-01-06 11:08 | EDM.PDOC ---
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 He was struggling with chills at home but according to his he did not have a fever. He is unable to bear any weight on the left foot. The foot has slightly more swelling than usual but increased pain and redness. Onset: Gradual Duration: Day(s): (Over the past 2 days) Associated Symptoms: Reports: Shortness of Breath (Chronic and stable). Denies : Confusion, Chest Pain Left Lower Leg Pain Score (Numeric/FACES): 9 - Related Data Allergies Allergy/AdvReac Type Severity Reaction Status Date / Time No Known Allergies Allergy Verified 01/06/20 10:15 Home Meds: Home Meds Albuterol Sulfate [Proair Hfa] 2 puff IH Q4HR PRN 03/19/15 [History] Tamsulosin [Flomax] 0.4 mg PO DAILY 03/11/16 [History] Fluticasone/Salmeterol [Advair 250-50 Diskus] 2 puff IN BID 11/11/17 [History] Digoxin [Lanoxin] 125 mcg PO DAILY@1300 #30 tablet 11/16/17 [Rx] Potassium Chloride [Klor-Con M20] 20 meq PO BIDMEALS #60 tab.er 11/16/17 [Rx] Bumetanide [Bumex] 4 mg PO DAILY 01/13/18 [History] Docusate Calcium 240 mg PO DAILY 01/13/18 [History] Febuxostat [Uloric] 40 mg PO DAILY 01/13/18 [History] Warfarin Sodium 5 mg PO .MON WED Fri01/13/18 [History] metOLazone [Metolazone] 2.5 mg PO ASDIRECTED 01/13/18 [History] Finasteride 5 mg PO DAILY 08/04/19 [History] Nebivolol [Bystolic] 5 mg PO BID 08/04/19 [History] Warfarin Sodium 10 mg PO .THIERRY, SUSHANT, GARY, SUN 08/04/19 [History] predniSONE [Prednisone] 10 mg PO DAILY 08/04/19 [History] Past Medical History HEENT History: Reports: Cataract, Impaired Vision Cardiovascular History: Reports: Afib, Cardiomyopathy, Heart Failure, High Cholesterol, Hypertension Respiratory History: Reports: COPD Gastrointestinal History: Reports: Chronic Constipation Genitourinary History: Reports: Other (See Below) Other Genitourinary History: stage 3 Kidney disease Musculoskeletal History: Reports: Back Pain, Chronic, Gout Neurological History: Reports: None Endocrine/Metabolic History: Reports: Obesity/BMI 30+ Hematologic History: Reports: Anticoagulation Therapy Oncologic (Cancer) History: Reports: Bladder Dermatologic History: Reports: Other (See Below) - Infectious Disease History Infectious Disease History: Reports: Chicken Pox, Measles, Mumps - Past Surgical History Head Surgeries/Procedures: Reports: None HEENT Surgical History: Reports: Oral Surgery Cardiovascular Surgical History: Reports: None Respiratory Surgical History: Reports: None GI Surgical History: Reports: None Male Surgical History: Reports: Cystectomy, Other (See Below) Other Male Surgeries/Procedures: POLYPS REMOMED IN BLADDER Endocrine Surgical History: Reports: None Neurological Surgical History: Reports: Spinal Fusion Musculoskeletal Surgical History: Reports: Arthroscopic Knee Oncologic Surgical History: Reports: None Dermatological Surgical History: Reports: None Social & Family History - Tobacco Use Smoking Status *Q: Former Smoker Used Tobacco, but Quit: Yes Month/Year Tobacco Last Used: 2006 Second Hand Smoke Exposure: No - Caffeine Use Caffeine Use: Reports: Coffee, Soda - Alcohol Use Days Per Week of Alcohol Use: 1 Number of Drinks Per Day: 2 Total Drinks Per Week: 2 - Recreational Drug Use Recreational Drug Use: No Review of Systems - Review of Systems Review Of Systems: See Below Constitutional: Reports: Fever (Chills with possible fever overnight) Respiratory: Reports: Shortness of Breath, Cough, Other (COPD, O2 dependent, symptoms are stable) Cardiovascular: Reports: Irregular Heart Rate (Chronic atrial fibrillation). Denies: Chest Pain Skin: Reports: Erythema (Marked increase erythema of the left lower leg with drainage from the lateral aspect which is not new) ED EXAM, GENERAL - Physical Exam Exam: See Below Exam Limited By: No Limitations General Appearance: Alert, No Apparent Distress, Other (Patient is fairly uncomfortable due to the pain in his left leg) Head: Atraumatic Neck: Non-Tender Respiratory/Chest: No Respiratory Distress, Decreased Breath Sounds (Decreased breath sounds in the bases bilaterally) Cardiovascular: Irregularly Irregular. No: Tachycardia GI/Abdominal: Other Extremities: Other (Significant bilateral lower extremity edema, the left leg has confluent bright red inflammatory skin which is warm to touch and very painful) Course - Vital Signs Last Recorded V/S: Last Vital Signs Temp 98.4 F 01/06/20 10:15 Pulse 106 H 01/06/20 11:16 Resp 23 H 01/06/20 11:16 BP 128/38 L 01/06/20 11:16 Pulse Ox 98 01/06/20 11:16 - Orders/Labs/Meds Orders: Active Orders 24 hr Category Date Time Status CULTURE BLOOD [BC] Stat Lab 01/06/20 11:10 Received Labs: Laboratory Tests 01/06/20 01/06/20 01/06/20 Range/Units 11:10 11:10 11:10 WBC 22.8 H (4.5-11.0) K/uL RBC 5.12 (4.30-5.90) M/uL Hgb 14.9 (12.0-15.0) g/dL Hct 48.0 (40.0-54.0) % MCV 94 (80-98) fL MCH 29 (27-31) pg MCHC 31 L (32-36) % Plt Count 205 (150-400) K/uL Neut % (Auto) 94 H (36-66) % Lymph % (Auto) 3 L (24-44) % [place] % (Auto) 3 (2-6) % Eos % (Auto) 0 L (2-4) % Baso % (Auto) 0 (0-1) % Sodium 141 (140-148) mmol/L Potassium 4.0 (3.6-5.2) mmol/L Chloride 99 L (100-108) mmol/L Carbon Dioxide 34 H (21-32) mmol/L Anion Gap 12.0 (5.0-14.0) mmol/L BUN 45 H D (7-18) mg/dL Creatinine 1.7 H (0.8-1.3) mg/dL Est Cr Clr Drug Dosing 41.21 mL/min Estimated GFR (MDRD) 39 L (>60) Glucose 126 H (74-106) mg/dL Uric Acid 10.7 H (3.5-7.2) mg/dL Calcium 9.5 (8.5-10.1) mg/dL Total Bilirubin 1.7 H D (0.2-1.0) mg/dL AST 30 (15-37) U/L ALT 46 (12-78) U/L Alkaline Phosphatase 48 (46-116) U/L C-Reactive Protein (0.0-0.3) mg/dL Total Protein 7.7 (6.4-8.2) g/dL Albumin 3.4 (3.4-5.0) g/dL Globulin 4.3 H (2.3-3.5) g/dL Albumin/Globulin Ratio 0.8 L (1.2-2.2) 01/06/20 Range/Units 11:10 WBC (4.5-11.0) K/uL RBC (4.30-5.90) M/uL Hgb (12.0-15.0) g/dL Hct (40.0-54.0) % MCV (80-98) fL MCH (27-31) pg MCHC (32-36) % Plt Count (150-400) K/uL Neut % (Auto) (36-66) % Lymph % (Auto) (24-44) % [place] % (Auto) (2-6) % Eos % (Auto) (2-4) % Baso % (Auto) (0-1) % Sodium (140-148) mmol/L Potassium (3.6-5.2) mmol/L Chloride (100-108) mmol/L Carbon Dioxide (21-32) mmol/L Anion Gap (5.0-14.0) mmol/L BUN (7-18) mg/dL Creatinine (0.8-1.3) mg/dL Est Cr Clr Drug Dosing mL/min Estimated GFR (MDRD) (>60) Glucose (74-106) mg/dL Uric Acid (3.5-7.2) mg/dL Calcium (8.5-10.1) mg/dL Total Bilirubin (0.2-1.0) mg/dL AST (15-37) U/L ALT (12-78) U/L Alkaline Phosphatase (46-116) U/L C-Reactive Protein 8.39 H (0.0-0.3) mg/dL Total Protein (6.4-8.2) g/dL Albumin (3.4-5.0) g/dL Globulin (2.3-3.5) g/dL Albumin/Globulin Ratio (1.2-2.2) Meds: Medications Discontinued Medications Generic Name Dose Route Start Last Admin Trade Name Freq PRN Reason Stop Dose Admin Hydromorphone HCl 0.5 mg 01/06/20 11:19 01/06/20 11:25 Dilaudid IVPUSH 01/06/20 11:20 0.5 mg ONETIME ONE Administration Ampicillin Sodium/Sulbactam 100 mls @ 200 mls/hr 01/06/20 10:52 01/06/20 11: 15 Sodium 3 gm/ Sodium Chloride IV 01/06/20 11:21 200 mls/hr ONETIME ONE Administration - Re-Assessments/Exams Free Text/Narrative Re-Assessment/Exam: 01/06/20 11:36 Patient remained afebrile and stable while in the emergency room. White count returned just over 22,000 and CRP was over 7. Kidney function was similar to past readings. Uric acid is elevated over 10 which increases the possibility of underlying gout. Patient was given 3 g of IV Unasyn, and it was recommended that hospitalization will help speed healing with IV medication but patient insisted on going home. He will be continued on Augmentin 875 mg twice daily, attempt to elevate his foot when able and recheck in the next 48 to 72 hours if not improving. He was also given 10 hydrocodone for extra pain control. Departure - Departure Time of Disposition: 12:12 Disposition: Home, Self-Care 01 Clinical Impression: Cellulitis of left lower leg, Morbid obesity Congestive heart failure Qualifiers: Heart failure type: unspecified Heart failure chronicity: chronic Qualified Code(s): I50.9 - Heart failure, unspecified - Discharge Information Instructions: Cellulitis, Adult Referrals: PCP,None [Primary Care Provider] - Forms: ED Department Discharge Care Plan Goals: Take oral antibiotic twice daily with food until gone. Elevate the foot when able, and keep ulcerations clean and dressed while healing. Use stronger pain medication if needed, and recheck in 2 to 3 days if not improving satisfactorily or return anytime if worsening despite treatment. Sepsis Event Note - Evaluation Sepsis Screening Result: No Definite Risk - Focused Exam Vital Signs: Vital Signs Temp Pulse Resp BP Pulse Ox 01/06/20 11:16 106 H 23 H 128/38 L 98 01/06/20 10:28 101 H 28 H 119/43 L 97 01/06/20 10:15 98.4 F 100 18 74/56 L 94 L 01/06/20 10:12 98.4 F 100 18 74/56 L 94 L 01/06/20 10:10 84 L Date Exam was Performed: 01/06/20 Time Exam was Performed: 12:50 - My Orders Last 24 Hours: My Active Orders 01/06/20 11:10 CULTURE BLOOD [BC] Stat - Assessment/Plan Last 24 Hours: My Active Orders 01/06/20 11:10 CULTURE BLOOD [BC] Stat
[2020-01-06 11:18] VITALS: BP 128/38; PULSE 106
[2020-01-06] MEDS ORDERED: HYDROmorphone 0.5 MG/0.5 ML Syringe IVPUSH ONE (11:19)
== END 2020-01-06 12:12 | disposition home or self-care (01) ==
LOC: JP.ED 10:00
DX: L03.116 Cellulitis of left lower limb (principal); I13.0 Hypertensive heart and chronic kidney disease with heart failure and stage 1 through stage 4 chronic kidney disease, or unspecified chronic kidney disease; I50.9 Heart failure, unspecified; N18.3 Chronic kidney disease, stage 3 (moderate); E66.01 Morbid (severe) obesity due to excess calories; I48.91 Unspecified atrial fibrillation; E78.00 Pure hypercholesterolemia, unspecified; J44.9 Chronic obstructive pulmonary disease, unspecified; Z79.899 Other long term (current) drug therapy; Z79.01 Long term (current) use of anticoagulants; Z87.891 Personal history of nicotine dependence; Z68.41 Body mass index [BMI] 40.0-44.9, adult
CPT/HCPCS: 36415; 80053; 84550; 85025; 86140; 87040; 87077; 87186; 96365; 96375; 99283; 99284; J0295; J1170; J7050

== ENCOUNTER 2020-05-08 13:30 | Emergency (ER) | payer MEDICARE ==
[2020-05-08 14:00] VITALS: BP 132/60; PULSE 66
--- NOTE | 2020-05-08 14:49 | EDM.PDOC ---
ED HPI GENERAL MEDICAL PROBLEM - General Chief Complaint: Lower Extremity Injury/Pain Stated Complaint: SWELLING IN BOTH LEGS ONE CAME INJURED Time Seen by Provider: 05/08/20 14:35 Source of Information: Reports: Patient History Limitations: Reports: No Limitations - History of Present Illness INITIAL COMMENTS - FREE TEXT/NARRATIVE: 75-year-old male who is on anticoagulation with Coumadin, had an INR checked this morning and it was 3.5. They made some adjustments to his dose, he was leaving the clinic when he bumped his lower left leg on the edge of something. He has significant lower extremity edema, and he sustained a small 1 cm x 1.5 cm skin tear which resulted in persistent oozing of serosanguineous discharge. Pressure and Coban dressings were applied but it continues to drain so the patient came in to be checked. It seems to be slowing down now. Onset: Sudden Duration: Hour(s): (2 hours ago) Location: Reports: Lower Extremity, Left Associated Symptoms: Reports: No Other Symptoms. Denies: Chest Pain, Cough, Nausea/Vomiting, Shortness of Breath - Related Data Allergies Allergy/AdvReac Type Severity Reaction Status Date / Time No Known Allergies Allergy Verified 05/08/20 14:03 Home Meds: Home Meds Albuterol Sulfate [Proair Hfa] 2 puff IH Q4HR PRN 03/19/15 [History] Tamsulosin [Flomax] 0.4 mg PO DAILY 03/11/16 [History] Fluticasone Propion/Salmeterol [Advair 250-50 Diskus] 2 puff IN BID 11/11/17 [ History] Digoxin [Lanoxin] 125 mcg PO DAILY@1300 #30 tablet 11/16/17 [Rx] Potassium Chloride [Klor-Con M20] 20 meq PO BIDMEALS #60 tab.er 11/16/17 [Rx] Docusate Calcium 240 mg PO DAILY 01/13/18 [History] Febuxostat [Uloric] 40 mg PO DAILY 01/13/18 [History] Warfarin Sodium 0 mg PO .MON WED Fri01/13/18 [History] Finasteride 5 mg PO DAILY 08/04/19 [History] Nebivolol [Bystolic] 5 mg PO BID 08/04/19 [History] Warfarin Sodium 0 mg PO .THIERRY, SUSHANT, SAT, SUN 08/04/19 [History] predniSONE [Prednisone] 10 mg PO BID 08/04/19 [History] Past Medical History HEENT History: Reports: Cataract, Impaired Vision Cardiovascular History: Reports: Afib, Cardiomyopathy, Heart Failure, High Cholesterol, Hypertension Respiratory History: Reports: COPD Gastrointestinal History: Reports: Chronic Constipation Genitourinary History: Reports: Other (See Below) Other Genitourinary History: stage 3 Kidney disease Musculoskeletal History: Reports: Back Pain, Chronic, Gout Neurological History: Reports: None Endocrine/Metabolic History: Reports: Obesity/BMI 30+ Hematologic History: Reports: Anticoagulation Therapy Oncologic (Cancer) History: Reports: Bladder Dermatologic History: Reports: Other (See Below) Other Dermatologic History: wound to left leg - Infectious Disease History Infectious Disease History: Reports: Chicken Pox, Measles, Mumps - Past Surgical History Head Surgeries/Procedures: Reports: None HEENT Surgical History: Reports: Oral Surgery Cardiovascular Surgical History: Reports: None Respiratory Surgical History: Reports: None GI Surgical History: Reports: None Male Surgical History: Reports: Cystectomy, Other (See Below) Other Male Surgeries/Procedures: POLYPS REMOMED IN BLADDER Endocrine Surgical History: Reports: None Neurological Surgical History: Reports: Spinal Fusion Musculoskeletal Surgical History: Reports: Arthroscopic Knee, Other (See Below) Other Musculoskeletal Surgeries/Procedures:: 3 back surgeries Oncologic Surgical History: Reports: None Dermatological Surgical History: Reports: None Social & Family History - Family History Family Medical History: Noncontributory - Tobacco Use Smoking Status *Q: Former Smoker Used Tobacco, but Quit: Yes Month/Year Tobacco Last Used: 2004 - Caffeine Use Caffeine Use: Reports: Coffee - Recreational Drug Use Recreational Drug Use: No Review of Systems - Review of Systems Review Of Systems: See Below Constitutional: Denies: Fever Respiratory: Denies: Shortness of Breath Cardiovascular: Denies: Chest Pain Skin: Reports: Other (Significant venous stasis changes of the lower extremities ) Neurological: Denies: Paresthesia ED EXAM, GENERAL - Physical Exam Exam: See Below Exam Limited By: No Limitations General Appearance: Alert, No Apparent Distress Respiratory/Chest: No Respiratory Distress Extremities: Other (Patient has significant 3+ bilateral pitting edema of the lower extremities. On the medial aspect of the proximal left calf area there is a small 1 x 1.5 cm skin tear with a small amount of bruising and persistent slow oozing of serosanguineous blood.) Psychiatric: Normal Affect, Normal Mood Course - Vital Signs Last Recorded V/S: Last Vital Signs Temp 97.3 F 05/08/20 13:59 Pulse 66 05/08/20 13:59 Resp 18 05/08/20 13:59 BP 132/60 05/08/20 13:59 Pulse Ox 96 05/08/20 13:59 - Re-Assessments/Exams Free Text/Narrative Re-Assessment/Exam: 05/08/20 14:48 Silver nitrate cautery was used x4, folded gauze was applied to the wound and co -band dressing was placed over the top for pressure. This should be left on for at least 4 to 6 hours. He can return if the drainage goes through the dressings, or if he removes the dressing and it starts bleeding again. Departure - Departure Time of Disposition: 15:56 Disposition: Home, Self-Care 01 Clinical Impression: Noninfected skin tear of left lower extremity Qualifiers: Encounter type: initial encounter Qualified Code(s): S81.812A - Laceration without foreign body, left lower leg, initial encounter - Discharge Information Instructions: Skin Tear, [id number] Referrals: Elliott Johnson MD [Primary Care Provider] - Forms: ED Department Discharge Care Plan Goals: Keep covered with pressure for at least the next 4 to 6 hours, and return if the drainage occurs through the dressing. Recheck tomorrow if the dressing is removed and you continue to have problems. Sepsis Event Note - Evaluation Sepsis Screening Result: No Definite Risk - Focused Exam Date Exam was Performed: 05/09/20 Time Exam was Performed: 07:03
== END 2020-05-08 15:00 | disposition home or self-care (01) ==
LOC: JP.ED 13:30
DX: S81.812A Laceration without foreign body, left lower leg, initial encounter (principal); I48.91 Unspecified atrial fibrillation; I13.0 Hypertensive heart and chronic kidney disease with heart failure and stage 1 through stage 4 chronic kidney disease, or unspecified chronic kidney disease; I50.9 Heart failure, unspecified; N18.3 Chronic kidney disease, stage 3 (moderate); E78.00 Pure hypercholesterolemia, unspecified; J44.9 Chronic obstructive pulmonary disease, unspecified; M10.9 Gout, unspecified; E66.9 Obesity, unspecified; Z68.42 Body mass index [BMI] 45.0-49.9, adult; Z87.891 Personal history of nicotine dependence; Z79.01 Long term (current) use of anticoagulants; W22.8XXA Striking against or struck by other objects, initial encounter
CPT/HCPCS: 99282

== ENCOUNTER 2021-03-11 23:21 | Inpatient (IN) | payer MEDICARE ==
[2021-03-11] MEDS ORDERED: Sodium Chloride 0.9% 10 ML Syringe FLUSH PRN (23:57)
--- NOTE | 2021-03-12 00:54 | EDM.PDOC ---
ED HPI GENERAL MEDICAL PROBLEM - General Chief Complaint: Neck Problem Stated Complaint: [facility] Time Seen by Provider: 03/11/21 23:38 Source of Information: Reports: Patient, EMS History Limitations: Reports: No Limitations - History of Present Illness INITIAL COMMENTS - FREE TEXT/NARRATIVE: Juan is a 76-year-old male presenting to the ED for evaluation of increased weakness and dyspnea. He is also complaining of right-sided shoulder pain. The patient got his Covid vaccine 3 weeks ago but since then has had a rapid decline in his activity. He states over the last week he has been increasingly weak. Today he was unable to get out of his chair and called EMS. He has also been increasing his home oxygen use. Normally the patient uses 4 L/min of oxygen at nighttime, however, he has had increased dyspnea and has been using it more frequently during the day. The patient does have a history for lymphedema in the lower extremities and has had marked increase in the edema in his legs. This is despite compression hose and Coban wraps. He denies any fever but has had chills. He has had a cough but has been nonproductive. He denies any chest pain. He does have a history for atrial fibrillation for which she is anticoagulated with warfarin. Patient lives with his . Right Neck Pain Score (Numeric/FACES): 7 - Related Data Allergies Allergy/AdvReac Type Severity Reaction Status Date / Time No Known Allergies Allergy Verified 03/11/21 23:25 Home Meds: Home Meds Albuterol Sulfate [Proair Hfa] 2 puff IH Q4HR PRN 03/19/15 [History] Tamsulosin [Flomax] 0.4 mg PO DAILY 03/11/16 [History] Digoxin [Lanoxin] 125 mcg PO DAILY@1300 #30 tablet 11/16/17 [Rx] Potassium Chloride [Klor-Con M20] 20 meq PO BIDMEALS #60 tab.er 11/16/17 [Rx] Docusate Calcium 240 mg PO DAILY 01/13/18 [History] Febuxostat [Uloric] 40 mg PO DAILY 01/13/18 [History] Warfarin Sodium 0 mg PO .MON WED Fri01/13/18 [History] Finasteride 5 mg PO DAILY 08/04/19 [History] Nebivolol [Bystolic] 5 mg PO BID 08/04/19 [History] Warfarin Sodium 0 mg PO .THIERRY, SUSHANT, GARY, SUN 08/04/19 [History] predniSONE [Prednisone] 10 mg PO BID 08/04/19 [History] Past Medical History HEENT History: Reports: Cataract, Impaired Vision Cardiovascular History: Reports: Afib, Cardiomyopathy, Heart Failure, High Cholesterol, Hypertension Respiratory History: Reports: COPD Gastrointestinal History: Reports: Chronic Constipation Genitourinary History: Reports: Other (See Below) Other Genitourinary History: stage 3 Kidney disease Musculoskeletal History: Reports: Back Pain, Chronic, Gout Neurological History: Reports: None Endocrine/Metabolic History: Reports: Obesity/BMI 30+ Hematologic History: Reports: Anticoagulation Therapy Oncologic (Cancer) History: Reports: Bladder Dermatologic History: Reports: Other (See Below) Other Dermatologic History: wound to left leg - Infectious Disease History Infectious Disease History: Reports: Chicken Pox, Measles, Mumps - Past Surgical History Head Surgeries/Procedures: Reports: None HEENT Surgical History: Reports: Oral Surgery Cardiovascular Surgical History: Reports: None Respiratory Surgical History: Reports: None GI Surgical History: Reports: None Male Surgical History: Reports: Cystectomy, Other (See Below) Other Male Surgeries/Procedures: POLYPS REMOMED IN BLADDER Endocrine Surgical History: Reports: None Neurological Surgical History: Reports: Spinal Fusion Musculoskeletal Surgical History: Reports: Arthroscopic Knee, Other (See Below) Other Musculoskeletal Surgeries/Procedures:: 3 back surgeries Oncologic Surgical History: Reports: None Dermatological Surgical History: Reports: None Social & Family History - Family History Family Medical History: No Pertinent Family History - Tobacco Use Tobacco Use Status *Q: Former Tobacco User Used Tobacco, but Quit: Yes Month/Year Tobacco Last Used: 1999 - Caffeine Use Caffeine Use: Reports: Coffee - Recreational Drug Use Recreational Drug Use: No ED ROS GENERAL - Review of Systems Review Of Systems: See Below Constitutional: Reports: Chills, Malaise, Weakness Respiratory: Reports: Shortness of Breath, Cough. Denies: Sputum Cardiovascular: Reports: Dyspnea on Exertion, Edema, Palpitations Endocrine: Reports: No Symptoms GI/Abdominal: Reports: No Symptoms : Reports: No Symptoms Musculoskeletal: Reports: No Symptoms Skin: Reports: No Symptoms Neurological: Reports: No Symptoms Psychiatric: Reports: No Symptoms Hematologic/Lymphatic: Reports: No Symptoms Immunologic: Reports: No Symptoms ED EXAM, GENERAL - Physical Exam Exam: See Below Exam Limited By: No Limitations General Appearance: Alert, Anxious, Mild Distress Head: Normocephalic Neck: Limited Range of Motion (Range of motion limited by spasm in the right trapezius muscle), Tender Lateral (Right tenderness over the trapezius muscle. Significance has him of this muscle.). No: Carotid Bruit Respiratory/Chest: No Respiratory Distress, Decreased Breath Sounds (Creased breath sounds in the base), Rhonchi (Basilar) Cardiovascular: Normal Peripheral Pulses, Tachycardia, Irregularly Irregular Peripheral Pulses: 2+: Radial (L), Radial (R) GI/Abdominal: Normal Bowel Sounds, Soft, Non-Tender Extremities: Pedal Edema (4+ pitting edema bilaterally. Evidence of chronic lymphedema.) Neurological: Alert, Oriented, Normal Cognition, No Motor/Sensory Deficits Psychiatric: Normal Affect Skin Exam: Warm, Dry Lymphatic: No Adenopathy #1 Interpretation EKG Date: 03/12/21 Time: 00:22 Rhythm: A-Fib Rate (Beats/Min): 115 P-Wave: Absent QRS: Normal ST-T: Other (Unspecific ST-T changes) QT: Normal Comparison: No Change Course - Vital Signs Last Recorded V/S: Last Vital Signs Temp 36.6 C 03/11/21 23:30 Pulse 125 H 03/12/21 01:50 Resp 27 H 03/11/21 23:30 BP 137/86 03/12/21 01:50 Pulse Ox 98 03/11/21 23:30 - Orders/Labs/Meds Orders: Active Orders 24 hr Category Date Time Status EKG Documentation Completion [RC] ASDIRECTED Care 03/11/21 23:58 Active Chest 1V Frontal [CR] Stat Exams 03/11/21 23:57 Taken COVID-19/FLU A+B/RSV [MOLEC] Stat Lab 03/12/21 01:27 Ordered Sodium Chloride 0.9% [Saline Flush] Med 03/11/21 23:57 Active 10 ml FLUSH ASDIRECTED PRN Saline Lock Insert [OM.PC] Routine Oth 03/11/21 23:57 Ordered EKG 12 Lead [EK] Routine Ther 03/11/21 23:57 Ordered Medication Orders Furosemide (Furosemide 40 Mg/4 Ml Vial) 40 mg IVPUSH ONETIME ONE Stop: 03/12/21 02:17 Methocarbamol (Methocarbamol 500 Mg Tab) 500 mg PO Q6H PRN PRN Reason: Spasms Sodium Chloride (Sodium Chloride 0.9% 10 Ml Syringe) 10 ml FLUSH ASDIRECTED PRN PRN Reason: Keep Vein Open Last Admin: 03/12/21 00:12 Dose: 10 ml Documented by: DEANDRE Sodium Chloride (Sodium Chloride 0.9% 10 Ml Syringe) 10 ml FLUSH ASDIRECTED PRN PRN Reason: Keep Vein Open Labs: Laboratory Tests 03/11/21 03/11/21 03/11/21 Range/Units 00:10 23:57 23:57 WBC 16.5 H (4.5-11.0) K/uL RBC 4.78 (4.30-5.90) M/uL Hgb 13.8 (12.0-15.0) g/dL Hct 44.5 (40.0-54.0) % MCV 93 (80-98) fL MCH 29 (27-31) pg MCHC 31 L (32-36) % Plt Count 194 (150-400) K/uL Neut % (Auto) 90 H (36-66) % Lymph % (Auto) 3 L (24-44) % Hodgeman % (Auto) 6 (2-6) % Eos % (Auto) 0 L (2-4) % Baso % (Auto) 0 (0-1) % PT 25.0 H (9.5-12.0) sec INR 2.33 H (0.80-1.20) APTT 43.0 H (27.0-36.0) sec Sodium 140 (140-148) mmol/L Potassium 5.3 H (3.6-5.2) mmol/L Chloride 102 (100-108) mmol/L Carbon Dioxide 30 (21-32) mmol/L Anion Gap 13.3 (5.0-14.0) mmol/L BUN 26 H (7-18) mg/dL Creatinine 1.3 (0.8-1.3) mg/dL Est Cr Clr Drug Dosing 53.78 mL/min Estimated GFR (MDRD) 54 L (>60) Glucose 100 (74-106) mg/dL Calcium 9.7 (8.5-10.1) mg/dL Total Bilirubin 2.4 H (0.2-1.0) mg/dL AST 42 H (15-37) U/L ALT 62 (12-78) U/L Alkaline Phosphatase 88 D (46-116) U/L Troponin I 0.205 H* (0.000-0.056) ng/mL NT-Pro-B Natriuret Pep 5500 H (5-450) pg/mL Total Protein 6.8 (6.4-8.2) g/dL Albumin 2.5 L (3.4-5.0) g/dL Globulin 4.3 H (2.3-3.5) g/dL Albumin/Globulin Ratio 0.6 L (1.2-2.2) Digoxin (0.90-2.00) ng/mL 03/12/21 Range/Units 01:18 WBC (4.5-11.0) K/uL RBC (4.30-5.90) M/uL Hgb (12.0-15.0) g/dL Hct (40.0-54.0) % MCV (80-98) fL MCH (27-31) pg MCHC (32-36) % Plt Count (150-400) K/uL Neut % (Auto) (36-66) % Lymph % (Auto) (24-44) % Hodgeman % (Auto) (2-6) % Eos % (Auto) (2-4) % Baso % (Auto) (0-1) % PT (9.5-12.0) sec INR (0.80-1.20) APTT (27.0-36.0) sec Sodium (140-148) mmol/L Potassium (3.6-5.2) mmol/L Chloride (100-108) mmol/L Carbon Dioxide (21-32) mmol/L Anion Gap (5.0-14.0) mmol/L BUN (7-18) mg/dL Creatinine (0.8-1.3) mg/dL Est Cr Clr Drug Dosing mL/min Estimated GFR (MDRD) (>60) Glucose (74-106) mg/dL Calcium (8.5-10.1) mg/dL Total Bilirubin (0.2-1.0) mg/dL AST (15-37) U/L ALT (12-78) U/L Alkaline Phosphatase (46-116) U/L Troponin I (0.000-0.056) ng/mL NT-Pro-B Natriuret Pep (5-450) pg/mL Total Protein (6.4-8.2) g/dL Albumin (3.4-5.0) g/dL Globulin (2.3-3.5) g/dL Albumin/Globulin Ratio (1.2-2.2) Digoxin 0.66 L (0.90-2.00) ng/mL Meds: Medications Generic Name Dose Route Start Last Admin Trade Name Freq PRN Reason Stop Dose Admin Furosemide 40 mg 03/12/21 02:16 Furosemide 40 Mg/4 Ml Vial IVPUSH 03/12/21 02:17 ONETIME ONE Methocarbamol 500 mg 03/12/21 02:14 Methocarbamol 500 Mg Tab PO Q6H PRN Spasms Sodium Chloride 10 ml 03/11/21 23:57 03/12/21 00:12 Sodium Chloride 0.9% 10 Ml Syringe FLUSH 10 ml ASDIRECTED PRN Administration Keep Vein Open Sodium Chloride 10 ml 03/12/21 02:06 Sodium Chloride 0.9% 10 Ml Syringe FLUSH ASDIRECTED PRN Keep Vein Open Discontinued Medications Generic Name Dose Route Start Last Admin Trade Name Freq PRN Reason Stop Dose Admin Diltiazem HCl 120 mg 03/12/21 01:41 03/12/21 01:50 Diltiazem 120 Mg Cap.Cd PO 03/12/21 01:42 120 mg ONETIME ONE Administration Methocarbamol 500 mg 03/12/21 01:14 03/12/21 01:32 Methocarbamol 500 Mg Tab PO 03/12/21 01:15 500 mg ONETIME ONE Administration - Re-Assessments/Exams Free Text/Narrative Re-Assessment/Exam: 03/12/21 01:24 I reviewed the patient's labs which are significant for a troponin of 0.205 and a BNP of 5500. The patient has clinical evidence of significant CHF and likely has elevation in both of these due to decompensated diastolic dysfunction. The patient will need admission for diuresis and close management of his congestive heart failure. The only lab that is currently pending is his digoxin level. Patient may need to be put on calcium channel donaldo for rate control as he jumps between 100 - 160 bpm sporadically. Discussed the case with Dr. Flores to arrange for admission of the patient. His chest x-ray did show bibasilar pulmonary edema and pleural effusion on the left. 03/12/21 02:28 she was given Cardizem 120 mg p.o. for his atrial fib with a rapid ventricular rate. His digoxin level is low at 0.66. Departure - Departure Time of Disposition: 02:00 Disposition: Admitted As Inpatient 65 Clinical Impression: Atrial fibrillation with rapid ventricular response, Lymphedema Congestive heart failure Qualifiers: Heart failure type: combined systolic and diastolic Heart failure chronicity: acute on chronic Qualified Code(s): I50.43 - Acute on chronic combined systolic (congestive) and diastolic (congestive) heart failure Strain of right trapezius muscle Qualifiers: Encounter type: initial encounter Qualified Code(s): S46.811A - Strain of other muscles, fascia and tendons at shoulder and upper arm level, right arm, initial encounter - Discharge Information Sepsis Event Note (ED) - Evaluation Sepsis Screening Result: No Definite Risk - Focused Exam Vital Signs: Vital Signs Temp Pulse Pulse Resp BP BP Pulse Ox 03/12/21 01:50 125 H 137/86 03/11/21 23:30 36.6 C 123 H 27 H 144/85 H 98 - Problem List & Annotations (1) Atrial fibrillation with rapid ventricular response SNOMED Code(s): 169070742186005 Code(s): I48.91 - UNSPECIFIED ATRIAL FIBRILLATION Status: Chronic Priority: High Current Visit: Yes (2) Lymphedema SNOMED Code(s): 261695245 Code(s): I89.0 - LYMPHEDEMA, NOT ELSEWHERE CLASSIFIED Status: Acute Priority: High Current Visit: Yes (3) Congestive heart failure SNOMED Code(s): 81275602 Code(s): I50.9 - HEART FAILURE, UNSPECIFIED Status: Acute Priority: High Current Visit: Yes Qualifiers: Heart failure type: combined systolic and diastolic Heart failure chronicity: acute on chronic Qualified Code(s): I50.43 - Acute on chronic combined systolic (congestive) and diastolic (congestive) heart failure (4) CKD (chronic kidney disease) stage 3, GFR 30-59 ml/min SNOMED Code(s): 831453012 Code(s): N18.3 - CHRONIC KIDNEY DISEASE, STAGE 3 (MODERATE) * DO NOT USE * Status: Chronic Priority: High Current Visit: No (5) Strain of right trapezius muscle SNOMED Code(s): 705991077 Code(s): S46.811A - STRAIN OF MUSC/FASC/TEND AT SHLDR/UP ARM, RIGHT ARM, INIT Status: Acute Priority: Medium Current Visit: Yes Qualifiers: Encounter type: initial encounter Qualified Code(s): S46.811A - Strain of other muscles, fascia and tendons at shoulder and upper arm level, right arm, initial encounter - Problem List Review Problem List Initiated/Reviewed/Updated: Yes - My Orders Last 24 Hours: My Active Orders 03/11/21 23:57 Chest 1V Frontal [CR] Stat Sodium Chloride 0.9% [Saline Flush] 10 ml FLUSH ASDIRECTED PRN Saline Lock Insert [OM.PC] Routine EKG 12 Lead [EK] Routine 03/11/21 23:58 EKG Documentation Completion [RC] ASDIRECTED 03/12/21 01:27 COVID-19/FLU A+B/RSV [MOLEC] Stat - Assessment/Plan Last 24 Hours: My Active Orders 03/11/21 23:57 Chest 1V Frontal [CR] Stat Sodium Chloride 0.9% [Saline Flush] 10 ml FLUSH ASDIRECTED PRN Saline Lock Insert [OM.PC] Routine EKG 12 Lead [EK] Routine 03/11/21 23:58 EKG Documentation Completion [RC] ASDIRECTED 03/12/21 01:27 COVID-19/FLU A+B/RSV [MOLEC] Stat
[2021-03-12] MEDS ORDERED: Methocarbamol 500 MG Tab PO ONE (01:14)
[2021-03-12] MEDS ORDERED: Diltiazem 120 MG Cap.CD PO ONE (01:41)
[2021-03-12] MEDS ORDERED: Sodium Chloride 0.9% 10 ML Syringe FLUSH PRN (02:06)
[2021-03-12] MEDS ORDERED: Furosemide 40 MG/4 ML VIAL IVPUSH ONE ×2 (02:16→18:00)
[2021-03-12] MEDS ORDERED: Albuterol 8 GM Inhaler INH PRN (02:26)
[2021-03-12 02:31] LABS: CORONAVIRUS COVID-19 NAA NEGATIVE (NEGATIVE)
[2021-03-12] MEDS ORDERED: Digoxin 125 MCG Tab PO ONE (04:25)
[2021-03-12] MEDS: Tamsulosin 0.4 MG Cap.ER PO SCH (08:43)
[2021-03-12] MEDS: Docusate Sodium 100 MG Cap PO SCH (08:43)
[2021-03-12] MEDS: Potassium Chloride 20 MEQ Tab.ER PO SCH ×2 (08:44→16:31)
[2021-03-12] MEDS: Finasteride 5 MG Tab PO SCH (08:44)
[2021-03-12] MEDS: predniSONE 10 MG Tab PO SCH ×2 (08:45→21:05)
--- NOTE | 2021-03-12 09:02 | HP ---
CHIEF COMPLAINT: Right shoulder pain. HISTORY OF PRESENT ILLNESS: A 76-year-old, his family was up the last few days, they cleaned his house and I believe a minute or two ago he started having right shoulder pain and his legs were weak, he had a hard time getting up to go to the bathroom. He has had chronic edema in his lower extremities and he has been seeing seafood technology specialist and getting his legs wrapped, which he has another appointment for tomorrow in the clinic, presented to the emergency room by ambulance, was noted to have increased fluid in his lungs on chest x-ray, edema in his legs, although he states that it is pretty much at his baseline. I was asked to admit the patient for further evaluation and treatment. PAST MEDICAL HISTORY: 1. Chronic atrial fibrillation with history of congestive heart failure with chronic leg edema. 2. Hyperlipidemia. 3. Cataracts. 4. Essential hypertension. 5. COPD, on home O2 at night and with exertion up to 4 L. 6. Stage 3 kidney disease. 7. Chronic back pain. 8. Bladder cancer. 9. He has had spinal fusion. MEDICATIONS: 1. Albuterol inhaler 2 puffs q.4 hours p.r.n. 2. Digoxin 0.125 mg daily. 3. Docusate 240 mg daily. 4. Uloric 40 mg daily. 5. Finasteride 5 mg daily. 6. Nebivolol 5 mg b.i.d. 7. Potassium chloride 20 mEq b.i.d. 8. Prednisone 10 mg b.i.d. 9. Flomax 0.4 mg daily. 10.Warfarin, per [facility]. I am not sure what his current dose is. ALLERGIES: NO KNOWN DRUG ALLERGIES. SOCIAL HISTORY: Previous smoker. FAMILY HISTORY: Noncontributory. REVIEW OF SYSTEMS: Denies headaches. He does have chronic shortness of breath. It does not sound like it is any worse than normal. No chest pain. He does have the right shoulder pain and right arm pain. Denies any nausea, vomiting, diarrhea, or constipation. Does have increased urinary frequency. He does have the chronic swelling of his legs and does have sores on both legs, which are currently wrapped. No neurologic complaints reported. OBJECTIVE: VITAL SIGNS: Weight 149 pounds, temp 36.6, pulse 123, blood pressure 144/85, respirations 27, O2 saturation 98% on 4 L. HEENT: Pharynx, dry mucous membranes in his mouth. NECK: Supple. No adenopathy, thyromegaly, JVD or carotid bruits. LUNGS: Decreased in the bases with some crackles. HEART: Irregularly irregular with rapid rate. ABDOMEN: Obese, soft, nontender. No mass or organomegaly palpated. EXTREMITIES: He does have edema to the thighs bilaterally with wraps on both legs. SKIN: He does have some erythema of his legs. NEUROLOGIC: Cranial nerves 2 through 12 appear to be grossly intact. He was alert and oriented. LABORATORY DATA: Digoxin level was 0.66. White count 16.5, hemoglobin 13.8, platelets 194,000. INR was 2.33. Sodium 140, potassium 4.3, chloride 102, BUN was 26, creatinine 1.3, glucose 100. Liver functions; AST was slightly elevated at 42, ALT was 62. Troponin 0.205. BNP was 5500. Albumin was 2.5. COVID test is pending. X-ray looks like there is some more fluid than was previous in his lung bases with a pleural effusion on the left side. EKG showed atrial fibrillation with ventricular rate of 115 beats per minute. ASSESSMENT: 1. Congestive heart failure. We will admit him, IV Lasix, continue with his oxygen, and recheck BMP in the morning. The patient did receive oral diltiazem in the emergency room to help slow his rate, which we will continue to monitor on telemetry. The patient is a DNR/DNI. 2. Chronic atrial fibrillation on chronic anticoagulation. 3. Right shoulder pain. The patient did receive methocarbamol. We will see if this helps, which we can continue. 4. We will admit him to inpatient, anticipate more than 2 midnight stays .. Steve Flores MD /[id number]
[2021-03-12] MEDS: Methocarbamol 500 MG Tab PO PRN ×2 (10:33→21:09)
--- NOTE | 2021-03-12 11:33 | CR ---
CHEST: Portable 03/12/2021 at 12:25 AM CLINICAL HISTORY:Dyspnea COMPARISON:2019 FINDINGS: The heart is enlarged. Pulmonary vascularity is cephalized. There is prominence of the lung markings diffusely which likely represent some pulmonary edema. There may be some minimal left effusion. There are atherosclerotic changes in the aorta. IMPRESSION: Cardiomegaly with vascular congestion suggests some CHF with mild pulmonary edema
[2021-03-12] MEDS: FEBUXOSTAT 40 MG PO SCH (11:56)
[2021-03-12] MEDS: Digoxin 125 MCG Tab PO SCH (12:42)
[2021-03-12] MEDS ORDERED: Warfarin 5 MG Tab PO SCH (13:00)
[2021-03-12] MEDS: Warfarin 5 MG Tab PO SCH (14:17)
[2021-03-12] MEDS: Diltiazem IR 30 MG Tab PO SCH ×2 (16:30→21:06)
--- NOTE | 2021-03-12 17:25 | PCM.PN ---
- General Info Date of Service: 03/12/21 Subjective Update: Mr. Sullivan has felt improved from admission with less shortness of breath. Heart rate this afternoon has increased to the 110-120 range. Troponin level remains mildly elevated, he denies any symptoms of chest pain or pressure Functional Status: Reports: Tolerating Diet, Urinating - Review of Systems General: Reports: Weakness, Fatigue. Denies: Fever, Chills Pulmonary: Reports: Shortness of Breath. Denies: Cough, Sputum, Hemoptysis, Wheezing Cardiovascular: Reports: Dyspnea on Exertion, Edema. Denies: Chest Pain, Palpitations, Orthopnea, PND, Lightheadedness Gastrointestinal: Reports: No Symptoms - Patient Data Vitals - Most Recent: Last Vital Signs Temp 99.3 F 03/12/21 14:00 Pulse 120 H 03/12/21 14:00 Resp 18 03/12/21 14:00 BP 108/60 03/12/21 14:00 Pulse Ox 95 03/12/21 14:00 Weight - Most Recent: 326 lb I&O - Last 24 Hours: Intake & Output 03/12/21 03/12/21 03/12/21 06:59 14:59 22:59 Intake Total 1140 Output Total 600 950 100 Balance -600 190 -100 Lab Results Last 24 Hours: Laboratory Results - last 24 hr 03/11/21 03/11/21 03/11/21 Range/Units 00:10 23:57 23:57 WBC 16.5 H (4.5-11.0) K/uL RBC 4.78 (4.30-5.90) M/uL Hgb 13.8 (12.0-15.0) g/dL Hct 44.5 (40.0-54.0) % MCV 93 (80-98) fL MCH 29 (27-31) pg MCHC 31 L (32-36) % Plt Count 194 (150-400) K/uL Neut % (Auto) 90 H (36-66) % Lymph % (Auto) 3 L (24-44) % [place] % (Auto) 6 (2-6) % Eos % (Auto) 0 L (2-4) % Baso % (Auto) 0 (0-1) % PT 25.0 H (9.5-12.0) sec INR 2.33 H (0.80-1.20) APTT 43.0 H (27.0-36.0) sec Sodium 140 (140-148) mmol/L Potassium 5.3 H (3.6-5.2) mmol/L Chloride 102 (100-108) mmol/L Carbon Dioxide 30 (21-32) mmol/L Anion Gap 13.3 (5.0-14.0) mmol/L BUN 26 H (7-18) mg/dL Creatinine 1.3 (0.8-1.3) mg/dL Est Cr Clr Drug Dosing 53.78 mL/min Estimated GFR (MDRD) 54 L (>60) Glucose 100 (74-106) mg/dL Calcium 9.7 (8.5-10.1) mg/dL Total Bilirubin 2.4 H (0.2-1.0) mg/dL AST 42 H (15-37) U/L ALT 62 (12-78) U/L Alkaline Phosphatase 88 D (46-116) U/L Troponin I 0.205 H* (0.000-0.056) ng/mL NT-Pro-B Natriuret Pep 5500 H (5-450) pg/mL Total Protein 6.8 (6.4-8.2) g/dL Albumin 2.5 L (3.4-5.0) g/dL Globulin 4.3 H (2.3-3.5) g/dL Albumin/Globulin Ratio 0.6 L (1.2-2.2) Digoxin (0.90-2.00) ng/mL Influenza Type A RNA (NEGATIVE) RSV RNA (INAAT) (NEGATIVE) Influenza Type B RNA (NEGATIVE) SARS-CoV-2 RNA (JANETTE) (NEGATIVE) 03/12/21 03/12/21 03/12/21 Range/Units 01:18 01:27 05:26 WBC (4.5-11.0) K/uL RBC (4.30-5.90) M/uL Hgb (12.0-15.0) g/dL Hct (40.0-54.0) % MCV (80-98) fL MCH (27-31) pg MCHC (32-36) % Plt Count (150-400) K/uL Neut % (Auto) (36-66) % Lymph % (Auto) (24-44) % [place] % (Auto) (2-6) % Eos % (Auto) (2-4) % Baso % (Auto) (0-1) % PT (9.5-12.0) sec INR (0.80-1.20) APTT (27.0-36.0) sec Sodium 141 (140-148) mmol/L Potassium 4.4 (3.6-5.2) mmol/L Chloride 103 (100-108) mmol/L Carbon Dioxide 27 (21-32) mmol/L Anion Gap 10.9 (5.0-14.0) mmol/L BUN 25 H (7-18) mg/dL Creatinine 1.4 H (0.8-1.3) mg/dL Est Cr Clr Drug Dosing 47.06 mL/min Estimated GFR (MDRD) 49 L (>60) Glucose 104 (74-106) mg/dL Calcium 9.3 (8.5-10.1) mg/dL Total Bilirubin (0.2-1.0) mg/dL AST (15-37) U/L ALT (12-78) U/L Alkaline Phosphatase (46-116) U/L Troponin I 0.229 H* (0.000-0.056) ng/mL NT-Pro-B Natriuret Pep (5-450) pg/mL Total Protein (6.4-8.2) g/dL Albumin (3.4-5.0) g/dL Globulin (2.3-3.5) g/dL Albumin/Globulin Ratio (1.2-2.2) Digoxin 0.66 L (0.90-2.00) ng/mL Influenza Type A RNA Negative (NEGATIVE) RSV RNA (INAAT) Negative (NEGATIVE) Influenza Type B RNA Negative (NEGATIVE) SARS-CoV-2 RNA (JANETTE) Negative (NEGATIVE) Med Orders - Current: Current Medications Albuterol (Albuterol 8 Gm Inhaler) 0 gm INH Q4H PRN PRN Reason: Dyspnea Digoxin (Digoxin 125 Mcg Tab) 125 mcg PO DAILY@1300 [facility] Last Admin: 03/12/21 12:42 Dose: 125 mcg Documented by: Diltiazem HCl (Diltiazem Ir 30 Mg Tab) 30 mg PO Q6HR [facility] Last Admin: 03/12/21 16:30 Dose: 30 mg Documented by: Docusate Sodium (Docusate Sodium 100 Mg Cap) 200 mg PO DAILY [facility] Last Admin: 03/12/21 08:43 Dose: 200 mg Documented by: Febuxostat (Febuxostat 40 Mg Tab (Ptom)) 40 mg PO DAILY [facility] Last Admin: 03/12/21 11:56 Dose: Not Given Documented by: Finasteride (Finasteride 5 Mg Tab) 5 mg PO DAILY [facility] Last Admin: 03/12/21 08:44 Dose: 5 mg Documented by: Furosemide (Furosemide 40 Mg/4 Ml Vial) 40 mg IVPUSH NOW ONE Stop: 03/12/21 18:01 Methocarbamol (Methocarbamol 500 Mg Tab) 500 mg PO Q6H PRN PRN Reason: Spasms Last Admin: 03/12/21 10:33 Dose: 500 mg Documented by: Nebivolol (Nebivolol 10 Mg Tab) 5 mg PO BID [facility] Last Admin: 03/12/21 08:43 Dose: 5 mg Documented by: Potassium Chloride (Potassium Chloride 20 Meq Tab.Er) 20 meq PO BIDMEALS [facility] Last Admin: 03/12/21 16:31 Dose: 20 meq Documented by: Prednisone (Prednisone 10 Mg Tab) 10 mg PO BID [facility] Last Admin: 03/12/21 08:45 Dose: 10 mg Documented by: Sodium Chloride (Sodium Chloride 0.9% 10 Ml Syringe) 10 ml FLUSH ASDIRECTED PRN PRN Reason: Keep Vein Open Tamsulosin HCl (Tamsulosin 0.4 Mg Cap.Er) 0.4 mg PO DAILY [facility] Last Admin: 03/12/21 08:43 Dose: 0.4 mg Documented by: Warfarin Sodium (Warfarin 5 Mg Tab) 5 mg PO DAILY@1300 [facility] Last Admin: 03/12/21 14:17 Dose: 5 mg Documented by: Discontinued Medications Digoxin (Digoxin 125 Mcg Tab) 125 mcg PO ONETIME ONE Stop: 03/12/21 04:26 Last Admin: 03/12/21 04:42 Dose: 125 mcg Documented by: Diltiazem HCl (Diltiazem 120 Mg Cap.Cd) 120 mg PO ONETIME ONE Stop: 03/12/21 01:42 Last Admin: 03/12/21 01:50 Dose: 120 mg Documented by: Furosemide (Furosemide 40 Mg/4 Ml Vial) 40 mg IVPUSH ONETIME ONE Stop: 03/12/21 02:17 Last Admin: 03/12/21 03:26 Dose: 40 mg Documented by: Methocarbamol (Methocarbamol 500 Mg Tab) 500 mg PO ONETIME ONE Stop: 03/12/21 01:15 Last Admin: 03/12/21 01:32 Dose: 500 mg Documented by: Sodium Chloride (Sodium Chloride 0.9% 10 Ml Syringe) 10 ml FLUSH ASDIRECTED PRN PRN Reason: Keep Vein Open Last Admin: 03/12/21 00:12 Dose: 10 ml Documented by: - Exam Quality Assessment: DVT Prophylaxis General: Alert, Oriented, Cooperative, Mild Distress Lungs: Clear to Auscultation, Normal Respiratory Effort Cardiovascular: No Murmurs, Irregular Rhythm, Tachycardia GI/Abdominal Exam: Soft, Non-Tender, No Organomegaly, No Distention Extremities: Non-Tender, Pedal Edema - Patient Data Lab Results Last 24 hrs: Laboratory Results - last 24 hr 03/11/21 03/11/21 03/11/21 Range/Units 00:10 23:57 23:57 WBC 16.5 H (4.5-11.0) K/uL RBC 4.78 (4.30-5.90) M/uL Hgb 13.8 (12.0-15.0) g/dL Hct 44.5 (40.0-54.0) % MCV 93 (80-98) fL MCH 29 (27-31) pg MCHC 31 L (32-36) % Plt Count 194 (150-400) K/uL Neut % (Auto) 90 H (36-66) % Lymph % (Auto) 3 L (24-44) % [place] % (Auto) 6 (2-6) % Eos % (Auto) 0 L (2-4) % Baso % (Auto) 0 (0-1) % PT 25.0 H (9.5-12.0) sec INR 2.33 H (0.80-1.20) APTT 43.0 H (27.0-36.0) sec Sodium 140 (140-148) mmol/L Potassium 5.3 H (3.6-5.2) mmol/L Chloride 102 (100-108) mmol/L Carbon Dioxide 30 (21-32) mmol/L Anion Gap 13.3 (5.0-14.0) mmol/L BUN 26 H (7-18) mg/dL Creatinine 1.3 (0.8-1.3) mg/dL Est Cr Clr Drug Dosing 53.78 mL/min Estimated GFR (MDRD) 54 L (>60) Glucose 100 (74-106) mg/dL Calcium 9.7 (8.5-10.1) mg/dL Total Bilirubin 2.4 H (0.2-1.0) mg/dL AST 42 H (15-37) U/L ALT 62 (12-78) U/L Alkaline Phosphatase 88 D (46-116) U/L Troponin I 0.205 H* (0.000-0.056) ng/mL NT-Pro-B Natriuret Pep 5500 H (5-450) pg/mL Total Protein 6.8 (6.4-8.2) g/dL Albumin 2.5 L (3.4-5.0) g/dL Globulin 4.3 H (2.3-3.5) g/dL Albumin/Globulin Ratio 0.6 L (1.2-2.2) Digoxin (0.90-2.00) ng/mL Influenza Type A RNA (NEGATIVE) RSV RNA (INAAT) (NEGATIVE) Influenza Type B RNA (NEGATIVE) SARS-CoV-2 RNA (JANETTE) (NEGATIVE) 03/12/21 03/12/21 03/12/21 Range/Units 01:18 01:27 05:26 WBC (4.5-11.0) K/uL RBC (4.30-5.90) M/uL Hgb (12.0-15.0) g/dL Hct (40.0-54.0) % MCV (80-98) fL MCH (27-31) pg MCHC (32-36) % Plt Count (150-400) K/uL Neut % (Auto) (36-66) % Lymph % (Auto) (24-44) % [place] % (Auto) (2-6) % Eos % (Auto) (2-4) % Baso % (Auto) (0-1) % PT (9.5-12.0) sec INR (0.80-1.20) APTT (27.0-36.0) sec Sodium 141 (140-148) mmol/L Potassium 4.4 (3.6-5.2) mmol/L Chloride 103 (100-108) mmol/L Carbon Dioxide 27 (21-32) mmol/L Anion Gap 10.9 (5.0-14.0) mmol/L BUN 25 H (7-18) mg/dL Creatinine 1.4 H (0.8-1.3) mg/dL Est Cr Clr Drug Dosing 47.06 mL/min Estimated GFR (MDRD) 49 L (>60) Glucose 104 (74-106) mg/dL Calcium 9.3 (8.5-10.1) mg/dL Total Bilirubin (0.2-1.0) mg/dL AST (15-37) U/L ALT (12-78) U/L Alkaline Phosphatase (46-116) U/L Troponin I 0.229 H* (0.000-0.056) ng/mL NT-Pro-B Natriuret Pep (5-450) pg/mL Total Protein (6.4-8.2) g/dL Albumin (3.4-5.0) g/dL Globulin (2.3-3.5) g/dL Albumin/Globulin Ratio (1.2-2.2) Digoxin 0.66 L (0.90-2.00) ng/mL Influenza Type A RNA Negative (NEGATIVE) RSV RNA (INAAT) Negative (NEGATIVE) Influenza Type B RNA Negative (NEGATIVE) SARS-CoV-2 RNA (JANETTE) Negative (NEGATIVE) Result Diagrams: 03/11/21 00:10 03/12/21 05:26 Sepsis Event Note - Evaluation Sepsis Screening Result: Sepsis Risk - Focused Exam Vital Signs: Vital Signs Temp Pulse Pulse Resp BP BP Pulse Ox 03/12/21 14:00 99.3 F 120 H 18 108/60 95 03/12/21 12:42 81 03/12/21 10:00 115 H 16 03/12/21 08:43 74 133/76 03/12/21 07:00 99.3 F 85 18 133/76 93 L - Problem List Review Problem List Initiated/Reviewed/Updated: Yes - My Orders Last 24 Hours: My Active Orders 03/12/21 16:00 Diltiazem IR [Cardizem] 30 mg PO Q6HR 03/12/21 17:17 Furosemide [Lasix] 40 mg IVPUSH NOW ONE 03/13/21 05:00 BASIC METABOLIC PANEL,BMP [CHEM] Timed INR,PT,PROTHROMBIN TIME [COAG] Timed TROPONIN I [CHEM] Timed - Plan Plan:: ASSESSMENT AND PLAN ATRIAL FIBRILLATION WITH RAPID VENTRICULAR RESPONSE-heart rate had been under good control this morning but is increased through the afternoon -Continue digoxin 0.125 mg daily -Repeat digoxin level in a.m. -Diltiazem 30 mg p.o. every 6 hours -Continue anticoagulation with warfarin -Repeat INR in a.m. CONGESTIVE HEART FAILURE-evidence of pulmonary edema on chest x-ray -Echocardiogram in a.m. -Furosemide 40 mg IV now reassess in the a.m. MAINTENANCE ISSUES -DVT prophylaxis; current therapy with warfarin should provide adequate DVT prophylaxis -GI prophylaxis; not indicated -Cooper catheter; not indicated -Nutrition; 2 g sodium diet -Nicotine dependence; not required CODE STATUS-DNR/DNI ADMISSION STATUS-patient will be admitted to inpatient status, expect at least a 2 night hospital stay for evaluation and management of problems as outlined above. At the time of this admission I do not reasonably expected evaluation and management of this problem will require more than a 96 hour hospital stay. DISPOSITION-anticipate discharge to home after the hospital stay.
[2021-03-13] MEDS: Diltiazem IR 30 MG Tab PO SCH (04:01)
[2021-03-13] MEDS: predniSONE 10 MG Tab PO SCH ×2 (08:20→20:04)
[2021-03-13] MEDS: Potassium Chloride 20 MEQ Tab.ER PO SCH ×2 (08:21→17:18)
[2021-03-13] MEDS: Tamsulosin 0.4 MG Cap.ER PO SCH (08:22)
[2021-03-13] MEDS: Finasteride 5 MG Tab PO SCH (08:22)
[2021-03-13] MEDS: Docusate Sodium 100 MG Cap PO SCH (08:22)
[2021-03-13] MEDS ORDERED: Furosemide 40 MG/4 ML VIAL IVPUSH ONE (09:00)
[2021-03-13] MEDS: FEBUXOSTAT 40 MG PO SCH (10:09)
[2021-03-13] MEDS: Diltiazem 120 MG Cap.CD PO SCH (10:09)
[2021-03-13] MEDS: Methocarbamol 500 MG Tab PO PRN (10:17)
[2021-03-13] MEDS ORDERED: Warfarin 5 MG Tab PO SCH (13:00)
[2021-03-13] MEDS: Warfarin 5 MG Tab PO SCH (13:59)
[2021-03-13] MEDS ORDERED: Digoxin 125 MCG Tab PO ONE (14:00)
[2021-03-13] MEDS ORDERED: Diltiazem IR 30 MG Tab PO ONE (14:00)
[2021-03-13] MEDS: Digoxin 125 MCG Tab PO SCH (14:02)
--- NOTE | 2021-03-13 17:26 | PCM.PN ---
- General Info Date of Service: 03/13/21 Subjective Update: Mr. Sullivan has been stable since yesterday and reports less shortness of breath and edema. Heart rate control has remained somewhat variable. Functional Status: Reports: Tolerating Diet, Ambulating, Urinating - Review of Systems General: Reports: Weakness, Fatigue. Denies: Fever, Chills Pulmonary: Reports: Shortness of Breath. Denies: Pleuritic Chest Pain, Cough, Sputum, Hemoptysis, Wheezing Cardiovascular: Reports: Dyspnea on Exertion, Edema. Denies: Chest Pain, Palpitations, Orthopnea, PND, Lightheadedness Gastrointestinal: Reports: No Symptoms - Patient Data Vitals - Most Recent: Last Vital Signs Temp 98.7 F 03/13/21 14:25 Pulse 89 03/13/21 14:25 Resp 16 03/13/21 14:25 BP 131/69 03/13/21 14:25 Pulse Ox 98 03/13/21 14:25 Weight - Most Recent: 326 lb I&O - Last 24 Hours: Intake & Output 03/13/21 03/13/21 03/13/21 06:59 14:59 22:59 Intake Total 730 Output Total 200 700 Balance -200 30 Lab Results Last 24 Hours: Laboratory Results - last 24 hr 03/13/21 03/13/21 Range/Units 05:30 05:30 PT 22.5 H (9.5-12.0) sec INR 2.09 H (0.80-1.20) Sodium 142 (140-148) mmol/L Potassium 4.5 (3.6-5.2) mmol/L Chloride 105 (100-108) mmol/L Carbon Dioxide 25 (21-32) mmol/L Anion Gap 11.8 (5.0-14.0) mmol/L BUN 35 H (7-18) mg/dL Creatinine 1.4 H (0.8-1.3) mg/dL Est Cr Clr Drug Dosing 47.06 mL/min Estimated GFR (MDRD) 49 L (>60) Glucose 141 H (74-106) mg/dL Calcium 9.3 (8.5-10.1) mg/dL Troponin I 0.146 H* (0.000-0.056) ng/mL Digoxin 0.78 L (0.90-2.00) ng/mL Med Orders - Current: Current Medications Albuterol (Albuterol 8 Gm Inhaler) 0 gm INH Q4H PRN PRN Reason: Dyspnea Digoxin (Digoxin 125 Mcg Tab) 125 mcg PO DAILY@1300 [facility] Last Admin: 03/13/21 14:02 Dose: 125 mcg Documented by: Diltiazem HCl (Diltiazem 120 Mg Cap.Cd) 120 mg PO DAILY [facility] Last Admin: 03/13/21 10:09 Dose: 120 mg Documented by: Docusate Sodium (Docusate Sodium 100 Mg Cap) 200 mg PO DAILY [facility] Last Admin: 03/13/21 08:22 Dose: Not Given Documented by: Febuxostat (Febuxostat 40 Mg Tab (Ptom)) 40 mg PO DAILY [facility] Last Admin: 03/13/21 10:09 Dose: 40 mg Documented by: Finasteride (Finasteride 5 Mg Tab) 5 mg PO DAILY [facility] Last Admin: 03/13/21 08:22 Dose: 5 mg Documented by: Furosemide (Furosemide 40 Mg/4 Ml Vial) 40 mg IVPUSH NOW ONE Stop: 03/13/21 17:24 Methocarbamol (Methocarbamol 500 Mg Tab) 500 mg PO Q6H PRN PRN Reason: Spasms Last Admin: 03/13/21 10:17 Dose: 500 mg Documented by: Nebivolol (Nebivolol 10 Mg Tab) 5 mg PO BID [facility] Last Admin: 03/13/21 08:21 Dose: 5 mg Documented by: Potassium Chloride (Potassium Chloride 20 Meq Tab.Er) 20 meq PO BIDMEALS [facility] Last Admin: 03/13/21 17:18 Dose: 20 meq Documented by: Prednisone (Prednisone 10 Mg Tab) 10 mg PO BID [facility] Last Admin: 03/13/21 08:20 Dose: 10 mg Documented by: Sodium Chloride (Sodium Chloride 0.9% 10 Ml Syringe) 10 ml FLUSH ASDIRECTED PRN PRN Reason: Keep Vein Open Tamsulosin HCl (Tamsulosin 0.4 Mg Cap.Er) 0.4 mg PO DAILY [facility] Last Admin: 03/13/21 08:22 Dose: 0.4 mg Documented by: Warfarin Sodium (Warfarin 5 Mg Tab) 5 mg PO DAILY@1300 [facility] Last Admin: 03/13/21 13:59 Dose: 5 mg Documented by: Discontinued Medications Digoxin (Digoxin 125 Mcg Tab) 125 mcg PO ONETIME ONE Stop: 03/12/21 04:26 Last Admin: 03/12/21 04:42 Dose: 125 mcg Documented by: Digoxin (Digoxin 125 Mcg Tab) 125 mcg PO ONETIME ONE Stop: 03/13/21 14:01 Last Admin: 03/13/21 13:57 Dose: 125 mcg Documented by: Diltiazem HCl (Diltiazem 120 Mg Cap.Cd) 120 mg PO ONETIME ONE Stop: 03/12/21 01:42 Last Admin: 03/12/21 01:50 Dose: 120 mg Documented by: Diltiazem HCl (Diltiazem Ir 30 Mg Tab) 30 mg PO Q6HR [facility] Last Admin: 03/13/21 04:01 Dose: 30 mg Documented by: Diltiazem HCl (Diltiazem Ir 30 Mg Tab) 30 mg PO ONETIME ONE Stop: 03/13/21 14:01 Last Admin: 03/13/21 13:57 Dose: 30 mg Documented by: Furosemide (Furosemide 40 Mg/4 Ml Vial) 40 mg IVPUSH ONETIME ONE Stop: 03/12/21 02:17 Last Admin: 03/12/21 03:26 Dose: 40 mg Documented by: Furosemide (Furosemide 40 Mg/4 Ml Vial) 40 mg IVPUSH NOW ONE Stop: 03/12/21 18:01 Last Admin: 03/12/21 17:41 Dose: 40 mg Documented by: Furosemide (Furosemide 40 Mg/4 Ml Vial) 40 mg IVPUSH NOW ONE Stop: 03/13/21 09:01 Last Admin: 03/13/21 08:52 Dose: 40 mg Documented by: Methocarbamol (Methocarbamol 500 Mg Tab) 500 mg PO ONETIME ONE Stop: 03/12/21 01:15 Last Admin: 03/12/21 01:32 Dose: 500 mg Documented by: Sodium Chloride (Sodium Chloride 0.9% 10 Ml Syringe) 10 ml FLUSH ASDIRECTED PRN PRN Reason: Keep Vein Open Last Admin: 03/12/21 00:12 Dose: 10 ml Documented by: - Exam Quality Assessment: DVT Prophylaxis General: Alert, Oriented, Cooperative, Mild Distress Lungs: Clear to Auscultation, Normal Respiratory Effort, Decreased Breath Sounds. No: Rales, Rhonchi, Wheezing Cardiovascular: Regular Rate, Irregular Rhythm, Murmurs GI/Abdominal Exam: Soft, Non-Tender, No Organomegaly, No Distention Extremities: Non-Tender, Pedal Edema - Patient Data Lab Results Last 24 hrs: Laboratory Results - last 24 hr 03/13/21 03/13/21 Range/Units 05:30 05:30 PT 22.5 H (9.5-12.0) sec INR 2.09 H (0.80-1.20) Sodium 142 (140-148) mmol/L Potassium 4.5 (3.6-5.2) mmol/L Chloride 105 (100-108) mmol/L Carbon Dioxide 25 (21-32) mmol/L Anion Gap 11.8 (5.0-14.0) mmol/L BUN 35 H (7-18) mg/dL Creatinine 1.4 H (0.8-1.3) mg/dL Est Cr Clr Drug Dosing 47.06 mL/min Estimated GFR (MDRD) 49 L (>60) Glucose 141 H (74-106) mg/dL Calcium 9.3 (8.5-10.1) mg/dL Troponin I 0.146 H* (0.000-0.056) ng/mL Digoxin 0.78 L (0.90-2.00) ng/mL Result Diagrams: 03/11/21 00:10 03/13/21 05:30 Sepsis Event Note - Evaluation Sepsis Screening Result: No Definite Risk - Focused Exam Vital Signs: Vital Signs Temp Pulse Pulse Resp BP BP Pulse Ox 03/13/21 14:25 98.7 F 89 16 131/69 98 03/13/21 14:02 117 H 03/13/21 13:57 116 H 03/13/21 10:45 97.3 F 91 16 118/70 94 L 03/13/21 10:09 104 H 115/60 03/13/21 08:21 87 134/98 H 03/13/21 07:32 98.0 F 87 16 134/98 H 95 - Problem List Review Problem List Initiated/Reviewed/Updated: Yes - My Orders Last 24 Hours: My Active Orders 03/13/21 09:00 Diltiazem [Cardizem CD] 120 mg PO DAILY 03/13/21 09:21 PT Evaluation and Treatment [CONS] Routine 03/13/21 09:22 OT Evaluation and Treatment [CONS] Routine 03/13/21 17:23 Furosemide [Lasix] 40 mg IVPUSH NOW ONE 03/14/21 05:00 BASIC METABOLIC PANEL,BMP [CHEM] Timed DIGOXIN [CHEM] Timed INR,PT,PROTHROMBIN TIME [COAG] Timed - Plan Plan:: ASSESSMENT AND PLAN ATRIAL FIBRILLATION WITH RAPID VENTRICULAR RESPONSE-heart rate improved through the day today with extra dose of short acting diltiazem and digoxin -Continue digoxin 0.125 mg daily -Repeat digoxin level in a.m. -Diltiazem CD 120 mg daily, consider increasing dose to 180 mg daily in a.m. -Continue anticoagulation with warfarin -Repeat INR in a.m. CONGESTIVE HEART FAILURE-evidence of pulmonary edema on chest x-ray -Furosemide 40 mg IV twice daily today, reassess in a.m. MAINTENANCE ISSUES -DVT prophylaxis; current therapy with warfarin should provide adequate DVT prophylaxis -GI prophylaxis; not indicated -Cooper catheter; not indicated -Nutrition; 2 g sodium diet -Nicotine dependence; not required CODE STATUS-DNR/DNI ADMISSION STATUS-patient will be admitted to inpatient status, expect at least a 2 night hospital stay for evaluation and management of problems as outlined above. At the time of this admission I do not reasonably expected evaluation and management of this problem will require more than a 96 hour hospital stay. DISPOSITION-anticipate discharge to home after the hospital stay.
[2021-03-13] MEDS: Furosemide 40 MG/4 ML VIAL IVPUSH ONE ×2 (19:54→19:59)
[2021-03-13] MEDS ORDERED: Benzocaine/Cetylpyridinium/Menthol Lozenge MUCMEM PRN (22:14)
[2021-03-14] MEDS: predniSONE 10 MG Tab PO SCH ×2 (08:17→21:40)
[2021-03-14] MEDS: Tamsulosin 0.4 MG Cap.ER PO SCH (08:17)
[2021-03-14] MEDS: Finasteride 5 MG Tab PO SCH (08:17)
[2021-03-14] MEDS: Diltiazem 120 MG Cap.CD PO SCH (08:17)
[2021-03-14] MEDS: Potassium Chloride 20 MEQ Tab.ER PO SCH ×2 (08:17→16:51)
[2021-03-14] MEDS: FEBUXOSTAT 40 MG PO SCH (08:18)
[2021-03-14] MEDS: Docusate Sodium 100 MG Cap PO SCH ×2 (08:18→08:24)
[2021-03-14] MEDS: Digoxin 125 MCG Tab PO SCH (13:58)
[2021-03-14] MEDS: Warfarin 5 MG Tab PO SCH (13:59)
--- NOTE | 2021-03-14 14:39 | PCM.PN ---
- General Info Date of Service: 03/14/21 Subjective Update: Mr. Sullivan has remained fairly stable over the last 24 hours. Heart rate control is significantly improved with current management and he is no longer tachycardic. He remains very weak and requires assistance of 2 with transfers and ambulation. Respiratory status seems to be at baseline, currently requiring 4 L of oxygen via nasal cannula, which is what he uses at home. Functional Status: Reports: Tolerating Diet, Urinating - Review of Systems General: Reports: Weakness, Fatigue. Denies: Fever, Chills Pulmonary: Reports: Shortness of Breath. Denies: Pleuritic Chest Pain, Cough, Sputum, Hemoptysis, Wheezing Cardiovascular: Reports: Dyspnea on Exertion, Edema. Denies: Chest Pain, Palpitations, Orthopnea, PND, Lightheadedness Gastrointestinal: Reports: No Symptoms Genitourinary: Reports: No Symptoms - Patient Data Vitals - Most Recent: Last Vital Signs Temp 97.6 F 03/14/21 10:00 Pulse 80 03/14/21 13:58 Resp 20 03/14/21 10:00 BP 125/56 L 03/14/21 10:00 Pulse Ox 94 L 03/14/21 10:00 Weight - Most Recent: 326 lb I&O - Last 24 Hours: Intake & Output 03/13/21 03/14/21 03/14/21 22:59 06:59 14:59 Intake Total 500 Output Total 1000 Balance 500 -1000 Lab Results Last 24 Hours: Laboratory Results - last 24 hr 03/14/21 03/14/21 Range/Units 05:43 05:43 PT 27.1 H (9.5-12.0) sec INR 2.53 H (0.80-1.20) Sodium 142 (140-148) mmol/L Potassium 4.5 (3.6-5.2) mmol/L Chloride 103 (100-108) mmol/L Carbon Dioxide 28 (21-32) mmol/L Anion Gap 11.4 (5.0-14.0) mmol/L BUN 44 H (7-18) mg/dL Creatinine 1.5 H (0.8-1.3) mg/dL Est Cr Clr Drug Dosing 43.93 mL/min Estimated GFR (MDRD) 45 L (>60) Glucose 128 H (74-106) mg/dL Calcium 9.7 (8.5-10.1) mg/dL Digoxin 1.07 (0.90-2.00) ng/mL Med Orders - Current: Current Medications Albuterol (Albuterol 8 Gm Inhaler) 0 gm INH Q4H PRN PRN Reason: Dyspnea Benzocaine/Menthol (Benzocaine/Cetylpyridinium/Menthol Lozenge) 1 lozenge MUCMEM Q2H PRN PRN Reason: Cough Last Admin: 03/13/21 22:25 Dose: 1 adolfo Documented by: Digoxin (Digoxin 125 Mcg Tab) 125 mcg PO DAILY@1300 [facility] Last Admin: 03/14/21 13:58 Dose: 125 mcg Documented by: Diltiazem HCl (Diltiazem 120 Mg Cap.Cd) 120 mg PO DAILY [facility] Last Admin: 03/14/21 08:17 Dose: 120 mg Documented by: Docusate Sodium (Docusate Sodium 100 Mg Cap) 200 mg PO DAILY [facility] Last Admin: 03/14/21 08:24 Dose: Not Given Documented by: Febuxostat (Febuxostat 40 Mg Tab (Ptom)) 40 mg PO DAILY [facility] Last Admin: 03/14/21 08:18 Dose: 40 mg Documented by: Finasteride (Finasteride 5 Mg Tab) 5 mg PO DAILY [facility] Last Admin: 03/14/21 08:17 Dose: 5 mg Documented by: Methocarbamol (Methocarbamol 500 Mg Tab) 500 mg PO Q6H PRN PRN Reason: Spasms Last Admin: 03/13/21 10:17 Dose: 500 mg Documented by: Nebivolol (Nebivolol 10 Mg Tab) 5 mg PO BID [facility] Last Admin: 03/14/21 08:17 Dose: 5 mg Documented by: Potassium Chloride (Potassium Chloride 20 Meq Tab.Er) 20 meq PO BIDMEALS [facility] Last Admin: 03/14/21 08:17 Dose: 20 meq Documented by: Prednisone (Prednisone 10 Mg Tab) 10 mg PO BID [facility] Last Admin: 03/14/21 08:17 Dose: 10 mg Documented by: Sodium Chloride (Sodium Chloride 0.9% 10 Ml Syringe) 10 ml FLUSH ASDIRECTED PRN PRN Reason: Keep Vein Open Tamsulosin HCl (Tamsulosin 0.4 Mg Cap.Er) 0.4 mg PO DAILY [facility] Last Admin: 03/14/21 08:17 Dose: 0.4 mg Documented by: Warfarin Sodium (Warfarin 5 Mg Tab) 5 mg PO DAILY@1300 [facility] Last Admin: 03/14/21 13:59 Dose: 5 mg Documented by: Discontinued Medications Digoxin (Digoxin 125 Mcg Tab) 125 mcg PO ONETIME ONE Stop: 03/12/21 04:26 Last Admin: 03/12/21 04:42 Dose: 125 mcg Documented by: Digoxin (Digoxin 125 Mcg Tab) 125 mcg PO ONETIME ONE Stop: 03/13/21 14:01 Last Admin: 03/13/21 13:57 Dose: 125 mcg Documented by: Diltiazem HCl (Diltiazem 120 Mg Cap.Cd) 120 mg PO ONETIME ONE Stop: 03/12/21 01:42 Last Admin: 03/12/21 01:50 Dose: 120 mg Documented by: Diltiazem HCl (Diltiazem Ir 30 Mg Tab) 30 mg PO Q6HR [facility] Last Admin: 03/13/21 04:01 Dose: 30 mg Documented by: Diltiazem HCl (Diltiazem Ir 30 Mg Tab) 30 mg PO ONETIME ONE Stop: 03/13/21 14:01 Last Admin: 03/13/21 13:57 Dose: 30 mg Documented by: Furosemide (Furosemide 40 Mg/4 Ml Vial) 40 mg IVPUSH ONETIME ONE Stop: 03/12/21 02:17 Last Admin: 03/12/21 03:26 Dose: 40 mg Documented by: Furosemide (Furosemide 40 Mg/4 Ml Vial) 40 mg IVPUSH NOW ONE Stop: 03/12/21 18:01 Last Admin: 03/12/21 17:41 Dose: 40 mg Documented by: Furosemide (Furosemide 40 Mg/4 Ml Vial) 40 mg IVPUSH NOW ONE Stop: 03/13/21 09:01 Last Admin: 03/13/21 08:52 Dose: 40 mg Documented by: Furosemide (Furosemide 40 Mg/4 Ml Vial) 40 mg IVPUSH NOW ONE Stop: 03/13/21 18:01 Last Admin: 03/13/21 19:59 Dose: Not Given Documented by: Methocarbamol (Methocarbamol 500 Mg Tab) 500 mg PO ONETIME ONE Stop: 03/12/21 01:15 Last Admin: 03/12/21 01:32 Dose: 500 mg Documented by: Sodium Chloride (Sodium Chloride 0.9% 10 Ml Syringe) 10 ml FLUSH ASDIRECTED PRN PRN Reason: Keep Vein Open Last Admin: 03/12/21 00:12 Dose: 10 ml Documented by: - Exam Quality Assessment: Supplemental Oxygen, DVT Prophylaxis General: Alert, Oriented, Cooperative, Mild Distress Lungs: Clear to Auscultation, Normal Respiratory Effort, Decreased Breath Sounds. No: Rales, Rhonchi, Wheezing Cardiovascular: Regular Rate, No Murmurs, Irregular Rhythm GI/Abdominal Exam: Soft, Non-Tender, No Organomegaly, No Distention Extremities: Non-Tender, Pedal Edema - Patient Data Lab Results Last 24 hrs: Laboratory Results - last 24 hr 03/14/21 03/14/21 Range/Units 05:43 05:43 PT 27.1 H (9.5-12.0) sec INR 2.53 H (0.80-1.20) Sodium 142 (140-148) mmol/L Potassium 4.5 (3.6-5.2) mmol/L Chloride 103 (100-108) mmol/L Carbon Dioxide 28 (21-32) mmol/L Anion Gap 11.4 (5.0-14.0) mmol/L BUN 44 H (7-18) mg/dL Creatinine 1.5 H (0.8-1.3) mg/dL Est Cr Clr Drug Dosing 43.93 mL/min Estimated GFR (MDRD) 45 L (>60) Glucose 128 H (74-106) mg/dL Calcium 9.7 (8.5-10.1) mg/dL Digoxin 1.07 (0.90-2.00) ng/mL Result Diagrams: 03/11/21 00:10 03/14/21 05:43 Sepsis Event Note - Evaluation Sepsis Screening Result: Severe Sepsis Risk - Focused Exam Vital Signs: Vital Signs Temp Pulse Pulse Resp BP BP Pulse Ox 03/14/21 13:58 80 03/14/21 10:00 97.6 F 80 20 125/56 L 94 L 03/14/21 08:17 60 133/72 03/14/21 07:00 96.8 F L 60 133/72 95 03/14/21 03:00 97.2 F 80 20 129/53 L 96 - Problem List Review Problem List Initiated/Reviewed/Updated: Yes - My Orders Last 24 Hours: My Active Orders 03/15/21 05:00 BASIC METABOLIC PANEL,BMP [CHEM] Timed INR,PT,PROTHROMBIN TIME [COAG] Timed 03/15/21 08:00 Echo Comp wo Cont [US] Urgent - Plan Plan:: ASSESSMENT AND PLAN ATRIAL FIBRILLATION WITH RAPID VENTRICULAR RESPONSE-heart rate under good control with current management -Continue digoxin 0.125 mg daily -Diltiazem CD 180 mg daily -Continue anticoagulation with warfarin -Repeat INR in a.m. CONGESTIVE HEART FAILURE-evidence of pulmonary edema on chest x-ray -Hold diuretic therapy today -Echocardiogram in a.m. CHRONIC KIDNEY DISEASE STAGE III -Continue to closely monitor urine output and renal function MAINTENANCE ISSUES -DVT prophylaxis; current therapy with warfarin should provide adequate DVT prophylaxis -GI prophylaxis; not indicated -Cooper catheter; not indicated -Nutrition; 2 g sodium diet -Nicotine dependence; not required CODE STATUS-DNR/DNI ADMISSION STATUS-patient will be admitted to inpatient status, expect at least a 2 night hospital stay for evaluation and management of problems as outlined above. At the time of this admission I do not reasonably expected evaluation and management of this problem will require more than a 96 hour hospital stay. DISPOSITION-anticipate discharge to home after the hospital stay.
[2021-03-15] MEDS: Potassium Chloride 20 MEQ Tab.ER PO SCH ×2 (08:40→16:18)
[2021-03-15] MEDS: Diltiazem 120 MG Cap.CD PO SCH (08:43)
[2021-03-15] MEDS: Tamsulosin 0.4 MG Cap.ER PO SCH (08:44)
[2021-03-15] MEDS: Docusate Sodium 100 MG Cap PO SCH (08:44)
[2021-03-15] MEDS: predniSONE 10 MG Tab PO SCH ×2 (08:45→21:34)
[2021-03-15] MEDS: Finasteride 5 MG Tab PO SCH (08:45)
[2021-03-15] MEDS: FEBUXOSTAT 40 MG PO SCH (08:46)
[2021-03-15] MEDS: Digoxin 125 MCG Tab PO SCH (13:29)
[2021-03-15] MEDS ORDERED: Furosemide 40 MG/4 ML VIAL IVPUSH ONE (16:10)
[2021-03-15] MEDS: Morphine 2 MG/ML SYRINGE IVPUSH PRN (16:14)
--- NOTE | 2021-03-15 16:28 | PCM.PN ---
- General Info Date of Service: 03/15/21 Subjective Update: Mr. Sullivan has not felt as well today, some increase in shortness of breath, remains very weak. Heart rate control has remained good with current management and blood pressure has been adequate. Echocardiogram shows decreased left ventricular function with estimated ejection fraction of 30 to 35%. There is elevation in right-sided pressures with biatrial enlargement, diastolic dysfunction, and moderate mitral regurgitation. Functional Status: Reports: Tolerating Diet, Urinating - Review of Systems General: Reports: Weakness, Fatigue. Denies: Fever, Chills Pulmonary: Reports: Shortness of Breath. Denies: Pleuritic Chest Pain, Cough, Sputum, Hemoptysis, Wheezing Cardiovascular: Reports: Chest Pain (Reports tightness in his chest associated with increased shortness of breath), Dyspnea on Exertion. Denies: Palpitations, Orthopnea, PND, Edema, Lightheadedness Gastrointestinal: Reports: No Symptoms Genitourinary: Reports: No Symptoms - Patient Data Vitals - Most Recent: Last Vital Signs Temp 98.5 F 03/15/21 14:17 Pulse 92 03/15/21 15:53 Resp 26 H 03/15/21 15:53 BP 146/83 H 03/15/21 15:53 Pulse Ox 93 L 03/15/21 15:53 Weight - Most Recent: 319 lb 10.724 oz I&O - Last 24 Hours: Intake & Output 03/15/21 03/15/21 03/15/21 06:59 14:59 22:59 Intake Total 310 Output Total 500 850 Balance -500 -540 Lab Results Last 24 Hours: Laboratory Results - last 24 hr 03/15/21 03/15/21 Range/Units 04:58 04:58 PT 33.8 H (9.5-12.0) sec INR 3.17 H (0.80-1.20) Sodium 142 (140-148) mmol/L Potassium 4.8 (3.6-5.2) mmol/L Chloride 105 (100-108) mmol/L Carbon Dioxide 29 (21-32) mmol/L Anion Gap 8.5 (5.0-14.0) mmol/L BUN 45 H (7-18) mg/dL Creatinine 1.3 (0.8-1.3) mg/dL Est Cr Clr Drug Dosing 50.68 mL/min Estimated GFR (MDRD) 54 L (>60) Glucose 109 H (74-106) mg/dL Calcium 9.8 (8.5-10.1) mg/dL Med Orders - Current: Current Medications Albuterol (Albuterol 8 Gm Inhaler) 0 gm INH Q4H PRN PRN Reason: Dyspnea Benzocaine/Menthol (Benzocaine/Cetylpyridinium/Menthol Lozenge) 1 lozenge MUCMEM Q2H PRN PRN Reason: Cough Last Admin: 03/13/21 22:25 Dose: 1 adolfo Documented by: Digoxin (Digoxin 125 Mcg Tab) 125 mcg PO DAILY@1300 [facility] Last Admin: 03/15/21 13:29 Dose: 125 mcg Documented by: Diltiazem HCl (Diltiazem 180 Mg Cap.Cd) 180 mg PO DAILY [facility] Docusate Sodium (Docusate Sodium 100 Mg Cap) 200 mg PO DAILY [facility] Last Admin: 03/15/21 08:44 Dose: 200 mg Documented by: Febuxostat (Febuxostat 40 Mg Tab (Ptom)) 40 mg PO DAILY [facility] Last Admin: 03/15/21 08:46 Dose: 40 mg Documented by: Finasteride (Finasteride 5 Mg Tab) 5 mg PO DAILY [facility] Last Admin: 03/15/21 08:45 Dose: 5 mg Documented by: Furosemide (Furosemide 40 Mg Tab) 40 mg PO DAILY [facility] Lisinopril (Lisinopril 2.5 Mg Tab) 2.5 mg PO DAILY [facility] Methocarbamol (Methocarbamol 500 Mg Tab) 500 mg PO Q6H PRN PRN Reason: Spasms Last Admin: 03/13/21 10:17 Dose: 500 mg Documented by: Morphine Sulfate (Morphine 2 Mg/Ml Syringe) 2 mg IVPUSH Q1H PRN PRN Reason: Pain Last Admin: 03/15/21 16:14 Dose: 2 mg Documented by: Nebivolol (Nebivolol 10 Mg Tab) 5 mg PO BID [facility] Last Admin: 03/15/21 08:42 Dose: 5 mg Documented by: Potassium Chloride (Potassium Chloride 20 Meq Tab.Er) 20 meq PO BIDMEALS [facility] Last Admin: 03/15/21 16:18 Dose: 20 meq Documented by: Prednisone (Prednisone 10 Mg Tab) 10 mg PO BID [facility] Last Admin: 03/15/21 08:45 Dose: 10 mg Documented by: Sodium Chloride (Sodium Chloride 0.9% 10 Ml Syringe) 10 ml FLUSH ASDIRECTED PRN PRN Reason: Keep Vein Open Tamsulosin HCl (Tamsulosin 0.4 Mg Cap.Er) 0.4 mg PO DAILY [facility] Last Admin: 03/15/21 08:44 Dose: 0.4 mg Documented by: Discontinued Medications Digoxin (Digoxin 125 Mcg Tab) 125 mcg PO ONETIME ONE Stop: 03/12/21 04:26 Last Admin: 03/12/21 04:42 Dose: 125 mcg Documented by: Digoxin (Digoxin 125 Mcg Tab) 125 mcg PO ONETIME ONE Stop: 03/13/21 14:01 Last Admin: 03/13/21 13:57 Dose: 125 mcg Documented by: Diltiazem HCl (Diltiazem 120 Mg Cap.Cd) 120 mg PO ONETIME ONE Stop: 03/12/21 01:42 Last Admin: 03/12/21 01:50 Dose: 120 mg Documented by: Diltiazem HCl (Diltiazem Ir 30 Mg Tab) 30 mg PO Q6HR [facility] Last Admin: 03/13/21 04:01 Dose: 30 mg Documented by: Diltiazem HCl (Diltiazem 120 Mg Cap.Cd) 120 mg PO DAILY [facility] Last Admin: 03/15/21 08:43 Dose: 120 mg Documented by: Diltiazem HCl (Diltiazem Ir 30 Mg Tab) 30 mg PO ONETIME ONE Stop: 03/13/21 14:01 Last Admin: 03/13/21 13:57 Dose: 30 mg Documented by: Furosemide (Furosemide 40 Mg/4 Ml Vial) 40 mg IVPUSH ONETIME ONE Stop: 03/12/21 02:17 Last Admin: 03/12/21 03:26 Dose: 40 mg Documented by: Furosemide (Furosemide 40 Mg/4 Ml Vial) 40 mg IVPUSH NOW ONE Stop: 03/12/21 18:01 Last Admin: 03/12/21 17:41 Dose: 40 mg Documented by: Furosemide (Furosemide 40 Mg/4 Ml Vial) 40 mg IVPUSH NOW ONE Stop: 03/13/21 09:01 Last Admin: 03/13/21 08:52 Dose: 40 mg Documented by: Furosemide (Furosemide 40 Mg/4 Ml Vial) 40 mg IVPUSH NOW ONE Stop: 03/13/21 18:01 Last Admin: 03/13/21 19:59 Dose: Not Given Documented by: Furosemide (Furosemide 40 Mg/4 Ml Vial) 40 mg IVPUSH NOW ONE Stop: 03/15/21 16:11 Last Admin: 03/15/21 16:14 Dose: 40 mg Documented by: Methocarbamol (Methocarbamol 500 Mg Tab) 500 mg PO ONETIME ONE Stop: 03/12/21 01:15 Last Admin: 03/12/21 01:32 Dose: 500 mg Documented by: Sodium Chloride (Sodium Chloride 0.9% 10 Ml Syringe) 10 ml FLUSH ASDIRECTED PRN PRN Reason: Keep Vein Open Last Admin: 03/12/21 00:12 Dose: 10 ml Documented by: Warfarin Sodium (Warfarin 5 Mg Tab) 5 mg PO DAILY@1300 [facility] Last Admin: 03/14/21 13:59 Dose: 5 mg Documented by: - Exam Quality Assessment: Supplemental Oxygen, DVT Prophylaxis General: Alert, Oriented, Cooperative, Moderate Distress Lungs: Clear to Auscultation, Normal Respiratory Effort, Decreased Breath Sounds. No: Crackles, Rales, Rhonchi, Wheezing Cardiovascular: Regular Rate, Irregular Rhythm, Murmurs GI/Abdominal Exam: Soft, Non-Tender, No Organomegaly, No Distention Extremities: Non-Tender, No Pedal Edema - Patient Data Lab Results Last 24 hrs: Laboratory Results - last 24 hr 03/15/21 03/15/21 Range/Units 04:58 04:58 PT 33.8 H (9.5-12.0) sec INR 3.17 H (0.80-1.20) Sodium 142 (140-148) mmol/L Potassium 4.8 (3.6-5.2) mmol/L Chloride 105 (100-108) mmol/L Carbon Dioxide 29 (21-32) mmol/L Anion Gap 8.5 (5.0-14.0) mmol/L BUN 45 H (7-18) mg/dL Creatinine 1.3 (0.8-1.3) mg/dL Est Cr Clr Drug Dosing 50.68 mL/min Estimated GFR (MDRD) 54 L (>60) Glucose 109 H (74-106) mg/dL Calcium 9.8 (8.5-10.1) mg/dL Result Diagrams: 03/11/21 00:10 03/15/21 04:58 Sepsis Event Note - Evaluation Sepsis Screening Result: Severe Sepsis Risk - Focused Exam Vital Signs: Vital Signs Temp Pulse Pulse Resp BP BP Pulse Ox 03/15/21 15:53 92 26 H 146/83 H 93 L 03/15/21 14:17 98.5 F 99 26 H 122/72 94 L 03/15/21 13:29 75 03/15/21 11:28 97.3 F 75 24 H 136/74 90 L 03/15/21 08:43 71 126/63 03/15/21 08:42 81 126/63 03/15/21 07:16 96.3 F L 92 28 H 126/63 95 - Problem List Review Problem List Initiated/Reviewed/Updated: Yes - My Orders Last 24 Hours: My Active Orders 03/15/21 08:00 Echo Comp wo Cont [US] Urgent 03/15/21 15:43 Discontinue Telemetry Monitoring [Cardiac Monitoring Discontinue] [RC] Click to Edit 03/15/21 16:02 Morphine 2 mg IVPUSH Q1H PRN 03/16/21 05:00 BASIC METABOLIC PANEL,BMP [CHEM] Timed INR,PT,PROTHROMBIN TIME [COAG] Timed 03/16/21 09:00 Diltiazem [Cardizem CD] 180 mg PO DAILY Furosemide [Lasix] 40 mg PO DAILY lisinopriL [Prinivil] 2.5 mg PO DAILY - Plan Plan:: ASSESSMENT AND PLAN ATRIAL FIBRILLATION WITH RAPID VENTRICULAR RESPONSE-heart rate under good control with current management. INR mildly supratherapeutic today -Continue digoxin 0.125 mg daily -Diltiazem CD 180 mg daily -Hold warfarin today -Repeat INR in a.m. CONGESTIVE HEART FAILURE-evidence of pulmonary edema on chest x-ray. Echocardiogram shows estimated left ventricular systolic function at 30 to 35%. There is biatrial enlargement, moderate mitral regurgitation, elevated right- sided pressures, and evidence of diastolic dysfunction. -Continue current beta-donaldo therapy -Add DIONI inhibitor, lisinopril 2.5 mg p.o. daily -Furosemide 40 mg p.o. daily CHRONIC KIDNEY DISEASE STAGE III -Continue to closely monitor urine output and renal function MAINTENANCE ISSUES -DVT prophylaxis; current therapy with warfarin should provide adequate DVT prophylaxis -GI prophylaxis; not indicated -Cooper catheter; not indicated -Nutrition; 2 g sodium diet -Nicotine dependence; not required CODE STATUS-DNR/DNI ADMISSION STATUS-patient will be admitted to inpatient status, expect at least a 2 night hospital stay for evaluation and management of problems as outlined above. At the time of this admission I do not reasonably expected evaluation and management of this problem will require more than a 96 hour hospital stay. DISPOSITION-anticipate discharge to intermediate tomorrow
[2021-03-15] MEDS ORDERED: LORazepam ORAL Concentrate 1MG/0.5ML U/D BUCCAL PRN (18:34)
[2021-03-16] MEDS: Morphine 2 MG/ML SYRINGE IVPUSH PRN ×3 (00:31→09:02)
[2021-03-16] MEDS ORDERED: Lidocaine 2% Jelly 10 ML Urojet MUCMEM ONE (02:47)
[2021-03-16] MEDS: Potassium Chloride 20 MEQ Tab.ER PO SCH ×2 (08:54→17:12)
[2021-03-16] MEDS: Furosemide 40 MG Tab PO SCH (08:54)
[2021-03-16] MEDS: Diltiazem 180 MG Cap.CD PO SCH (08:55)
[2021-03-16] MEDS: Docusate Sodium 100 MG Cap PO SCH (08:55)
[2021-03-16] MEDS: Lisinopril 2.5 MG Tab PO SCH (08:58)
[2021-03-16] MEDS: predniSONE 10 MG Tab PO SCH ×2 (08:58→22:12)
[2021-03-16] MEDS: FEBUXOSTAT 40 MG PO SCH (08:59)
[2021-03-16] MEDS: Finasteride 5 MG Tab PO SCH (08:59)
[2021-03-16] MEDS: Tamsulosin 0.4 MG Cap.ER PO SCH (09:00)
--- NOTE | 2021-03-16 09:45 | PCM.PN ---
- General Info Date of Service: 03/16/21 Subjective Update: Mr. Sullivan unfortunately experienced further decline in his respiratory status through the day yesterday. I did talk with him last night and he is requested to move to comfort cares only and does not want further aggressive interventions or evaluation. He has received morphine through the night and is more comfortable, although is complaining of some pain in his lower back. Plan had been for transfer to snf, he appears to be imminently dying and will be kept at the hospital for ongoing care and comfort measures. He is currently sedated and lethargic, unable to provide meaningful information concerning symptoms or review of systems. - Patient Data Vitals - Most Recent: Last Vital Signs Temp 98.4 F 03/16/21 07:58 Pulse 140 H 03/16/21 08:56 Resp 24 H 03/16/21 07:58 BP 138/84 03/16/21 08:58 Pulse Ox 91 L 03/16/21 07:58 Weight - Most Recent: 318 lb 12.615 oz I&O - Last 24 Hours: Intake & Output 03/15/21 03/16/21 03/16/21 22:59 06:59 14:59 Output Total 200 400 125 Balance -200 -400 -125 Med Orders - Current: Current Medications Albuterol (Albuterol 8 Gm Inhaler) 0 gm INH Q4H PRN PRN Reason: Dyspnea Benzocaine/Menthol (Benzocaine/Cetylpyridinium/Menthol Lozenge) 1 lozenge MUCMEM Q2H PRN PRN Reason: Cough Last Admin: 03/13/21 22:25 Dose: 1 adolfo Documented by: Digoxin (Digoxin 125 Mcg Tab) 125 mcg PO DAILY@1300 [facility] Last Admin: 03/15/21 13:29 Dose: 125 mcg Documented by: Diltiazem HCl (Diltiazem 180 Mg Cap.Cd) 180 mg PO DAILY [facility] Last Admin: 03/16/21 08:55 Dose: 180 mg Documented by: Docusate Sodium (Docusate Sodium 100 Mg Cap) 200 mg PO DAILY [facility] Last Admin: 03/16/21 08:55 Dose: 200 mg Documented by: Febuxostat (Febuxostat 40 Mg Tab (Ptom)) 40 mg PO DAILY [facility] Last Admin: 03/16/21 08:59 Dose: 40 mg Documented by: Finasteride (Finasteride 5 Mg Tab) 5 mg PO DAILY [facility] Last Admin: 03/16/21 08:59 Dose: 5 mg Documented by: Furosemide (Furosemide 40 Mg Tab) 40 mg PO DAILY [facility] Last Admin: 03/16/21 08:54 Dose: 40 mg Documented by: Lisinopril (Lisinopril 2.5 Mg Tab) 2.5 mg PO DAILY [facility] Last Admin: 03/16/21 08:58 Dose: 2.5 mg Documented by: Lorazepam (Lorazepam Oral Concentrate 1mg/0.5ml U/D) 0.5 mg BUCCAL Q2H PRN PRN Reason: Anxiety Last Admin: 03/16/21 09:37 Dose: 0.5 mg Documented by: Methocarbamol (Methocarbamol 500 Mg Tab) 500 mg PO Q6H PRN PRN Reason: Spasms Last Admin: 03/13/21 10:17 Dose: 500 mg Documented by: Morphine Sulfate (Morphine 10 Mg/0.5 Ml Oral Syringe) 7.5 mg PO Q1H PRN PRN Reason: Dyspnea Nebivolol (Nebivolol 10 Mg Tab) 5 mg PO BID [facility] Last Admin: 03/16/21 08:56 Dose: 5 mg Documented by: Potassium Chloride (Potassium Chloride 20 Meq Tab.Er) 20 meq PO BIDMEALS [facility] Last Admin: 03/16/21 08:54 Dose: 20 meq Documented by: Prednisone (Prednisone 10 Mg Tab) 10 mg PO BID [facility] Last Admin: 03/16/21 08:58 Dose: 10 mg Documented by: Sodium Chloride (Sodium Chloride 0.9% 10 Ml Syringe) 10 ml FLUSH ASDIRECTED PRN PRN Reason: Keep Vein Open Tamsulosin HCl (Tamsulosin 0.4 Mg Cap.Er) 0.4 mg PO DAILY [facility] Last Admin: 03/16/21 09:00 Dose: 0.4 mg Documented by: Discontinued Medications Digoxin (Digoxin 125 Mcg Tab) 125 mcg PO ONETIME ONE Stop: 03/12/21 04:26 Last Admin: 03/12/21 04:42 Dose: 125 mcg Documented by: Digoxin (Digoxin 125 Mcg Tab) 125 mcg PO ONETIME ONE Stop: 03/13/21 14:01 Last Admin: 03/13/21 13:57 Dose: 125 mcg Documented by: Diltiazem HCl (Diltiazem 120 Mg Cap.Cd) 120 mg PO ONETIME ONE Stop: 03/12/21 01:42 Last Admin: 03/12/21 01:50 Dose: 120 mg Documented by: Diltiazem HCl (Diltiazem Ir 30 Mg Tab) 30 mg PO Q6HR [facility] Last Admin: 03/13/21 04:01 Dose: 30 mg Documented by: Diltiazem HCl (Diltiazem 120 Mg Cap.Cd) 120 mg PO DAILY [facility] Last Admin: 03/15/21 08:43 Dose: 120 mg Documented by: Diltiazem HCl (Diltiazem Ir 30 Mg Tab) 30 mg PO ONETIME ONE Stop: 03/13/21 14:01 Last Admin: 03/13/21 13:57 Dose: 30 mg Documented by: Furosemide (Furosemide 40 Mg/4 Ml Vial) 40 mg IVPUSH ONETIME ONE Stop: 03/12/21 02:17 Last Admin: 03/12/21 03:26 Dose: 40 mg Documented by: Furosemide (Furosemide 40 Mg/4 Ml Vial) 40 mg IVPUSH NOW ONE Stop: 03/12/21 18:01 Last Admin: 03/12/21 17:41 Dose: 40 mg Documented by: Furosemide (Furosemide 40 Mg/4 Ml Vial) 40 mg IVPUSH NOW ONE Stop: 03/13/21 09:01 Last Admin: 03/13/21 08:52 Dose: 40 mg Documented by: Furosemide (Furosemide 40 Mg/4 Ml Vial) 40 mg IVPUSH NOW ONE Stop: 03/13/21 18:01 Last Admin: 03/13/21 19:59 Dose: Not Given Documented by: Furosemide (Furosemide 40 Mg/4 Ml Vial) 40 mg IVPUSH NOW ONE Stop: 03/15/21 16:11 Last Admin: 03/15/21 16:14 Dose: 40 mg Documented by: Lidocaine HCl (Lidocaine 2% Jelly 10 Ml Urojet) 10 ml MUCMEM ONETIME ONE Stop: 03/16/21 02:48 Last Admin: 03/16/21 02:54 Dose: 10 ml Documented by: Methocarbamol (Methocarbamol 500 Mg Tab) 500 mg PO ONETIME ONE Stop: 03/12/21 01:15 Last Admin: 03/12/21 01:32 Dose: 500 mg Documented by: Morphine Sulfate (Morphine 2 Mg/Ml Syringe) 2 mg IVPUSH Q1H PRN PRN Reason: Pain Last Admin: 03/16/21 09:02 Dose: 2 mg Documented by: Sodium Chloride (Sodium Chloride 0.9% 10 Ml Syringe) 10 ml FLUSH ASDIRECTED PRN PRN Reason: Keep Vein Open Last Admin: 03/12/21 00:12 Dose: 10 ml Documented by: Warfarin Sodium (Warfarin 5 Mg Tab) 5 mg PO DAILY@1300 [facility] Last Admin: 03/14/21 13:59 Dose: 5 mg Documented by: - Exam General: Sedated, Lethargic Lungs: Decreased Breath Sounds, Rhonchi. No: Crackles, Rales, Wheezing Cardiovascular: Regular Rate, No Murmurs, Irregular Rhythm GI/Abdominal Exam: Soft, Non-Tender, No Organomegaly, No Distention Extremities: Non-Tender, Pedal Edema - Patient Data Result Diagrams: 03/11/21 00:10 03/15/21 04:58 Sepsis Event Note - Evaluation Sepsis Screening Result: Severe Sepsis Risk - Focused Exam Vital Signs: Vital Signs Temp Temp Pulse Pulse Resp BP BP 03/16/21 08:58 138/84 03/16/21 08:56 140 H 138/85 03/16/21 07:58 98.4 F 70 24 H 133/52 L 03/16/21 03:00 22 H 03/15/21 22:45 98.6 F 86 22 H 126/72 Pulse Ox 03/16/21 08:58 03/16/21 08:56 03/16/21 07:58 91 L 03/16/21 03:00 03/15/21 22:45 91 L - Problem List & Annotations (1) Diastolic CHF, acute on chronic SNOMED Code(s): 504052068, 928997766 Code(s): I50.33 - ACUTE ON CHRONIC DIASTOLIC (CONGESTIVE) HEART FAILURE Status: Acute Current Visit: Yes (2) Atrial fibrillation with rapid ventricular response SNOMED Code(s): 265239834629652 Code(s): I48.91 - UNSPECIFIED ATRIAL FIBRILLATION Status: Chronic Priority: High Current Visit: Yes (3) Lymphedema SNOMED Code(s): 065495137 Code(s): I89.0 - LYMPHEDEMA, NOT ELSEWHERE CLASSIFIED Status: Acute Priority: High Current Visit: Yes (4) Congestive heart failure SNOMED Code(s): 60900664 Code(s): I50.9 - HEART FAILURE, UNSPECIFIED Status: Acute Priority: High Current Visit: Yes Qualifiers: Heart failure type: combined systolic and diastolic Heart failure chronicity: acute on chronic Qualified Code(s): I50.43 - Acute on chronic combined systolic (congestive) and diastolic (congestive) heart failure (5) CKD (chronic kidney disease) stage 3, GFR 30-59 ml/min SNOMED Code(s): 763587135 Code(s): N18.3 - CHRONIC KIDNEY DISEASE, STAGE 3 (MODERATE) * DO NOT USE * Status: Chronic Priority: High Current Visit: No (6) Cardiomyopathy SNOMED Code(s): 93460295 Code(s): I42.9 - CARDIOMYOPATHY, UNSPECIFIED Status: Chronic Current Visit: No (7) COPD (chronic obstructive pulmonary disease) with acute bronchitis SNOMED Code(s): 227658179984087 Code(s): J44.0 - CHR OBSTRUCTIVE PULMON DISEASE WITH (ACUTE) LOWER RESP INFCT Status: Chronic Current Visit: No (8) Morbid obesity SNOMED Code(s): 359976970 Code(s): E66.01 - MORBID (SEVERE) OBESITY DUE TO EXCESS CALORIES Status: Chronic Current Visit: No - Problem List Review Problem List Initiated/Reviewed/Updated: Yes - My Orders Last 24 Hours: My Active Orders 03/15/21 18:34 LORazepam [Ativan ORAL Concentrate 1MG/0.5 ML U/D] 0.5 mg BUCCAL Q2H PRN 03/15/21 18:34 Resuscitation Status Routine 03/16/21 09:00 Diltiazem [Cardizem CD] 180 mg PO DAILY Furosemide [Lasix] 40 mg PO DAILY lisinopriL [Prinivil] 2.5 mg PO DAILY 03/16/21 09:37 Morphine [Morphine 10 MG/0.5 ML Oral Syringe] 7.5 mg PO Q1H PRN - Plan Plan:: ASSESSMENT AND PLAN ATRIAL FIBRILLATION WITH RAPID VENTRICULAR RESPONSE -Comfort cares only CONGESTIVE HEART FAILURE -Comfort cares only CHRONIC KIDNEY DISEASE STAGE III PALLIATIVE CARE-he has experienced further deterioration in respiratory status over the last 24 hours and has requested no further aggressive interventions or management. He would like to be kept comfortable. -Morphine and lorazepam as needed for comfort, per patient request MAINTENANCE ISSUES -DVT prophylaxis; current therapy with warfarin should provide adequate DVT prophylaxis -GI prophylaxis; not indicated -Cooper catheter; not indicated -Nutrition; 2 g sodium diet -Nicotine dependence; not required CODE STATUS-DNR/DNI COMFORT CARES ONLY ADMISSION STATUS-patient will be admitted to inpatient status, expect at least a 2 night hospital stay for evaluation and management of problems as outlined above. At the time of this admission I do not reasonably expected evaluation and management of this problem will require more than a 96 hour hospital stay. DISPOSITION
[2021-03-16] MEDS: Morphine 10 MG/0.5 ML Oral Syringe PO PRN ×4 (10:17→19:30)
[2021-03-16] MEDS: Digoxin 125 MCG Tab PO SCH (13:29)
[2021-03-17] MEDS: Morphine 10 MG/0.5 ML Oral Syringe PO PRN ×3 (00:49→11:21)
[2021-03-17] MEDS: Potassium Chloride 20 MEQ Tab.ER PO SCH (07:31)
[2021-03-17 08:57] VITALS: BP 149/51; PULSE 73
[2021-03-17] MEDS: Docusate Sodium 100 MG Cap PO SCH (09:30)
[2021-03-17] MEDS: Diltiazem 180 MG Cap.CD PO SCH (09:30)
[2021-03-17] MEDS: Furosemide 40 MG Tab PO SCH (09:30)
[2021-03-17] MEDS: Tamsulosin 0.4 MG Cap.ER PO SCH (09:30)
[2021-03-17] MEDS: Lisinopril 2.5 MG Tab PO SCH (09:31)
[2021-03-17] MEDS: Finasteride 5 MG Tab PO SCH (09:31)
[2021-03-17] MEDS: predniSONE 10 MG Tab PO SCH (09:31)
[2021-03-17] MEDS: FEBUXOSTAT 40 MG PO SCH (09:31)
--- NOTE | 2021-03-17 11:18 | PCM.PN ---
- General Info Date of Service: 03/17/21 Subjective Update: Mr. Sullivan appears to have remained comfortable over the last 24 hours. He has been sedated with intermittent use of morphine and lorazepam. - Patient Data Vitals - Most Recent: Last Vital Signs Temp 97.8 F 03/17/21 08:52 Pulse 73 03/17/21 08:52 Resp 26 H 03/17/21 08:52 BP 149/51 H 03/17/21 08:52 Pulse Ox 88 L 03/17/21 08:52 Weight - Most Recent: 318 lb 12.615 oz I&O - Last 24 Hours: Intake & Output 03/16/21 03/17/21 03/17/21 22:59 06:59 14:59 Output Total 600 300 Balance -600 -300 Med Orders - Current: Current Medications Albuterol (Albuterol 8 Gm Inhaler) 0 gm INH Q4H PRN PRN Reason: Dyspnea Benzocaine/Menthol (Benzocaine/Cetylpyridinium/Menthol Lozenge) 1 lozenge MUCMEM Q2H PRN PRN Reason: Cough Last Admin: 03/13/21 22:25 Dose: 1 adolfo Documented by: Digoxin (Digoxin 125 Mcg Tab) 125 mcg PO DAILY@1300 [facility] Last Admin: 03/16/21 13:29 Dose: 125 mcg Documented by: Diltiazem HCl (Diltiazem 180 Mg Cap.Cd) 180 mg PO DAILY [facility] Last Admin: 03/17/21 09:30 Dose: Not Given Documented by: Docusate Sodium (Docusate Sodium 100 Mg Cap) 200 mg PO DAILY [facility] Last Admin: 03/17/21 09:30 Dose: Not Given Documented by: Febuxostat (Febuxostat 40 Mg Tab (Ptom)) 40 mg PO DAILY [facility] Last Admin: 03/17/21 09:31 Dose: Not Given Documented by: Finasteride (Finasteride 5 Mg Tab) 5 mg PO DAILY [facility] Last Admin: 03/17/21 09:31 Dose: Not Given Documented by: Furosemide (Furosemide 40 Mg Tab) 40 mg PO DAILY [facility] Last Admin: 03/17/21 09:30 Dose: Not Given Documented by: Lisinopril (Lisinopril 2.5 Mg Tab) 2.5 mg PO DAILY [facility] Last Admin: 03/17/21 09:31 Dose: Not Given Documented by: Lorazepam (Lorazepam Oral Concentrate 1mg/0.5ml U/D) 0.5 mg BUCCAL Q2H PRN PRN Reason: Anxiety Last Admin: 03/16/21 09:37 Dose: 0.5 mg Documented by: Methocarbamol (Methocarbamol 500 Mg Tab) 500 mg PO Q6H PRN PRN Reason: Spasms Last Admin: 03/13/21 10:17 Dose: 500 mg Documented by: Morphine Sulfate (Morphine 10 Mg/0.5 Ml Oral Syringe) 7.5 mg PO Q1H PRN PRN Reason: Dyspnea Last Admin: 03/17/21 07:41 Dose: 7.5 mg Documented by: Nebivolol (Nebivolol 10 Mg Tab) 5 mg PO BID [facility] Last Admin: 03/17/21 09:30 Dose: Not Given Documented by: Potassium Chloride (Potassium Chloride 20 Meq Tab.Er) 20 meq PO BIDMEALS [facility] Last Admin: 03/17/21 07:31 Dose: Not Given Documented by: Prednisone (Prednisone 10 Mg Tab) 10 mg PO BID [facility] Last Admin: 03/17/21 09:31 Dose: Not Given Documented by: Sodium Chloride (Sodium Chloride 0.9% 10 Ml Syringe) 10 ml FLUSH ASDIRECTED PRN PRN Reason: Keep Vein Open Tamsulosin HCl (Tamsulosin 0.4 Mg Cap.Er) 0.4 mg PO DAILY [facility] Last Admin: 03/17/21 09:30 Dose: Not Given Documented by: Discontinued Medications Digoxin (Digoxin 125 Mcg Tab) 125 mcg PO ONETIME ONE Stop: 03/12/21 04:26 Last Admin: 03/12/21 04:42 Dose: 125 mcg Documented by: Digoxin (Digoxin 125 Mcg Tab) 125 mcg PO ONETIME ONE Stop: 03/13/21 14:01 Last Admin: 03/13/21 13:57 Dose: 125 mcg Documented by: Diltiazem HCl (Diltiazem 120 Mg Cap.Cd) 120 mg PO ONETIME ONE Stop: 03/12/21 01:42 Last Admin: 03/12/21 01:50 Dose: 120 mg Documented by: Diltiazem HCl (Diltiazem Ir 30 Mg Tab) 30 mg PO Q6HR [facility] Last Admin: 03/13/21 04:01 Dose: 30 mg Documented by: Diltiazem HCl (Diltiazem 120 Mg Cap.Cd) 120 mg PO DAILY [facility] Last Admin: 03/15/21 08:43 Dose: 120 mg Documented by: Diltiazem HCl (Diltiazem Ir 30 Mg Tab) 30 mg PO ONETIME ONE Stop: 03/13/21 14:01 Last Admin: 03/13/21 13:57 Dose: 30 mg Documented by: Furosemide (Furosemide 40 Mg/4 Ml Vial) 40 mg IVPUSH ONETIME ONE Stop: 03/12/21 02:17 Last Admin: 03/12/21 03:26 Dose: 40 mg Documented by: Furosemide (Furosemide 40 Mg/4 Ml Vial) 40 mg IVPUSH NOW ONE Stop: 03/12/21 18:01 Last Admin: 03/12/21 17:41 Dose: 40 mg Documented by: Furosemide (Furosemide 40 Mg/4 Ml Vial) 40 mg IVPUSH NOW ONE Stop: 03/13/21 09:01 Last Admin: 03/13/21 08:52 Dose: 40 mg Documented by: Furosemide (Furosemide 40 Mg/4 Ml Vial) 40 mg IVPUSH NOW ONE Stop: 03/13/21 18:01 Last Admin: 03/13/21 19:59 Dose: Not Given Documented by: Furosemide (Furosemide 40 Mg/4 Ml Vial) 40 mg IVPUSH NOW ONE Stop: 03/15/21 16:11 Last Admin: 03/15/21 16:14 Dose: 40 mg Documented by: Lidocaine HCl (Lidocaine 2% Jelly 10 Ml Urojet) 10 ml MUCMEM ONETIME ONE Stop: 03/16/21 02:48 Last Admin: 03/16/21 02:54 Dose: 10 ml Documented by: Methocarbamol (Methocarbamol 500 Mg Tab) 500 mg PO ONETIME ONE Stop: 03/12/21 01:15 Last Admin: 03/12/21 01:32 Dose: 500 mg Documented by: Morphine Sulfate (Morphine 2 Mg/Ml Syringe) 2 mg IVPUSH Q1H PRN PRN Reason: Pain Last Admin: 03/16/21 09:02 Dose: 2 mg Documented by: Sodium Chloride (Sodium Chloride 0.9% 10 Ml Syringe) 10 ml FLUSH ASDIRECTED PRN PRN Reason: Keep Vein Open Last Admin: 03/12/21 00:12 Dose: 10 ml Documented by: Warfarin Sodium (Warfarin 5 Mg Tab) 5 mg PO DAILY@1300 [facility] Last Admin: 03/14/21 13:59 Dose: 5 mg Documented by: - Exam General: Sedated, Lethargic Lungs: Decreased Breath Sounds, Rhonchi. No: Rales, Wheezing Cardiovascular: No Murmurs, Irregular Rhythm, Tachycardia GI/Abdominal Exam: Soft, Non-Tender, No Organomegaly, No Distention - Patient Data Result Diagrams: 03/11/21 00:10 03/15/21 04:58 Sepsis Event Note - Evaluation Sepsis Screening Result: Severe Sepsis Risk - Focused Exam Vital Signs: Vital Signs Temp Pulse Resp BP Pulse Ox 03/17/21 08:52 97.8 F 73 26 H 149/51 H 88 L - Problem List & Annotations (1) Diastolic CHF, acute on chronic SNOMED Code(s): 430257630, 497174764 Code(s): I50.33 - ACUTE ON CHRONIC DIASTOLIC (CONGESTIVE) HEART FAILURE Status: Acute Current Visit: Yes (2) Atrial fibrillation with rapid ventricular response SNOMED Code(s): 239585626034896 Code(s): I48.91 - UNSPECIFIED ATRIAL FIBRILLATION Status: Chronic Prio rity: High Current Visit: Yes (3) Lymphedema SNOMED Code(s): 098190266 Code(s): I89.0 - LYMPHEDEMA, NOT ELSEWHERE CLASSIFIED Status: Acute Priority: High Current Visit: Yes (4) Congestive heart failure SNOMED Code(s): 39228789 Code(s): I50.9 - HEART FAILURE, UNSPECIFIED Status: Acute Priority: High Current Visit: Yes Qualifiers: Heart failure type: combined systolic and diastolic Heart failure chronicity: acute on chronic Qualified Code(s): I50.43 - Acute on chronic co mbined systolic (congestive) and diastolic (congestive) heart failure (5) CKD (chronic kidney disease) stage 3, GFR 30-59 ml/min SNOMED Code(s): 101371427 Code(s): N18.3 - CHRONIC KIDNEY DISEASE, STAGE 3 (MODERATE) * DO NOT USE * Status: Chronic Priority: High Current Visit: No (6) Cardiomyopathy SNOMED Code(s): 08516311 Code(s): I42.9 - CARDIOMYOPATHY, UNSPECIFIED Status: Chronic Current Visit: No (7) COPD (chronic obstructive pulmonary disease) with acute bronchitis SNOMED Code(s): 984723216936644 Code(s): J44.0 - CHR OBSTRUCTIVE PULMON DISEASE WITH (ACUTE) LOWER RESP INFCT Status: Chronic Current Visit: No (8) Morbid obesity SNOMED Code(s): 454197820 Code(s): E66.01 - MORBID (SEVERE) OBESITY DUE TO EXCESS CALORIES Status: Chronic Current Visit: No - Problem List Review Problem List Initiated/Reviewed/Updated: Yes - My Orders Last 24 Hours: My Active Orders 03/16/21 16:26 Remove Dressing [OM.PC] Routine 03/18/21 03:00 Insert Cooper Catheter [Insert Urinary Catheter] [OM.PC] Q24H - Plan Plan:: ASSESSMENT AND PLAN ATRIAL FIBRILLATION WITH RAPID VENTRICULAR RESPONSE -Comfort cares only CONGESTIVE HEART FAILURE -Comfort cares only CHRONIC KIDNEY DISEASE STAGE III PALLIATIVE CARE-he has experienced further deterioration in respiratory status over the last 24 hours and has requested no further aggressive interventions or management. He would like to be kept comfortable. -Morphine and lorazepam as needed for comfort, per patient request MAINTENANCE ISSUES -DVT prophylaxis; current therapy with warfarin should provide adequate DVT prophylaxis -GI prophylaxis; not indicated -Cooper catheter; not indicated -Nutrition; 2 g sodium diet -Nicotine dependence; not required CODE STATUS-DNR/DNI COMFORT CARES ONLY ADMISSION STATUS-patient will be admitted to inpatient status, expect at least a 2 night hospital stay for evaluation and management of problems as outlined above. At the time of this admission I do not reasonably expected evaluation and management of this problem will require more than a 96 hour hospital stay. DISPOSITION
[2021-03-17] MEDS: Digoxin 125 MCG Tab PO SCH (13:00)
--- NOTE | 2021-03-17 14:29 | PCM.DCSUM1 ---
Discharge Summary - Hospital Course Brief History: Mr. Sullivan was a 76-year-old gentleman who was admitted through the emergency department with progressive weakness, shortness of breath, and increase in peripheral edema, secondary to underlying systolic and diastolic congestive heart failure, oxygen dependent COPD, atrial fibrillation with rapid ventricular response, and chronic kidney disease. - Discharge Data Discharge Date: 03/17/21 Discharge Disposition: 20 Preliminary Cause of *Q: Respiratory Failure Event(s) Leading to Patient's *Q: Mr. Sullvian was a 76-year-old gentleman with multiple underlying medical problems including COPD, diastolic and systolic congestive heart failure, chronic kidney disease, who experienced progressive decline during hospital stay and ultimately requested a switch to comfort cares only. Condition: - Referral to Home Health Primary Care Physician: Elliott Johnson MD - Discharge Diagnosis/Problem(s) (1) Diastolic CHF, acute on chronic SNOMED Code(s): 211095898, 120640451 ICD Code: I50.33 - ACUTE ON CHRONIC DIASTOLIC (CONGESTIVE) HEART FAILURE Status: Acute Current Visit: Yes (2) Atrial fibrillation with rapid ventricular response SNOMED Code(s): 957756669083219 ICD Code: I48.91 - UNSPECIFIED ATRIAL FIBRILLATION Status: Chronic Priority: High Current Visit: Yes (3) Lymphedema SNOMED Code(s): 514949446 ICD Code: I89.0 - LYMPHEDEMA, NOT ELSEWHERE CLASSIFIED Status: Acute Priority: High Current Visit: Yes (4) Congestive heart failure SNOMED Code(s): 96478068 ICD Code: I50.9 - HEART FAILURE, UNSPECIFIED Status: Acute Priority: High Current Visit: Yes Qualifiers: Heart failure type: combined systolic and diastolic Heart failure chronicity: acute on chronic Qualified Code(s): I50.43 - Acute on chronic combined systolic (congestive) and diastolic (congestive) heart failure (5) CKD (chronic kidney disease) stage 3, GFR 30-59 ml/min SNOMED Code(s): 586528518 ICD Code: N18.3 - CHRONIC KIDNEY DISEASE, STAGE 3 (MODERATE) * DO NOT USE * Status: Chronic Priority: High Current Visit: No (6) Cardiomyopathy SNOMED Code(s): 79512872 ICD Code: I42.9 - CARDIOMYOPATHY, UNSPECIFIED Status: Chronic Current Visit: No (7) COPD (chronic obstructive pulmonary disease) with acute bronchitis SNOMED Code(s): 038859274887183 ICD Code: J44.0 - CHR OBSTRUCTIVE PULMON DISEASE WITH (ACUTE) LOWER RESP INFCT Status: Chronic Current Visit: No (8) Morbid obesity SNOMED Code(s): 366569655 ICD Code: E66.01 - MORBID (SEVERE) OBESITY DUE TO EXCESS CALORIES Status: Chronic Current Visit: No - Patient Summary/Data Hospital Course: Mr. Sullivan was a 76-year-old gentleman who was admitted through the emergency department with a history of progressive weakness, shortness of breath, and increase in peripheral edema, secondary to systolic and diastolic congestive heart failure, oxygen dependent COPD, atrial fibrillation with rapid ventricular response, and chronic kidney disease. He has had ongoing difficulty with peripheral edema which has become more so recently and has had some leakage as well as ulcers. He had been seen and evaluated as well as followed in the wound clinic and did have Unna boots on both lower extremities on admission. Chest x- ray showed evidence of pulmonary edema and monitoring as well as EKG showed at rial fibrillation with rapid ventricular response. Troponin levels were found to be elevated in the emergency department in the range of 0.2. Follow-up levels remained stable and then slowly decreased. Elevated troponin was felt secondary to underlying kidney disease as well as demand ischemia in the setting of congestive heart failure exacerbation and atrial fibrillation. He was treated with oral medications for the atrial fibrillation and with a combination of diltiazem and digoxin level did come to within desired range. Echocardiogram was obtained and did show decreased left ventricular function with estimated ejection fraction of 30 to 35%. Also noted was evidence of diastolic dysfunction, elevated right-sided pressures, moderate mitral regurgitation, and decreased right ventricular function. At baseline he did require oxygen supplementation at 4 L/min via nasal cannula, and had been in this range at home for some time. He did receive diuretic therapy during hospitalization with improvement in peripheral edema and initial improvement in oxygenation. He remained very weak despite daily visits with physical therapy and Occupational Therapy. It became evident that he would not be able to return home because of his profound weakness. We discussed options for ongoing management and the plan was to proceed with shelter placement for restorative physical therapy and Occupational Therapy. On the day prior to planned discharge he began to experience increased shortness of breath and weakness. This was discussed with the patient and he reported that he wanted to be kept comfortable but did not want to undergo further extensive evaluation with tests and blood draws. I discussed this further with the patient and he requested comfort cares only with no further aggressive interventions. This discussion was reviewed with family members including his and daughter. They were in agreement with this plan and he was started on morphine and lorazepam as needed for comfort. On the day of planned discharge his appeared to be more eminent so discharge was canceled and he was kept in the hospital for ongoing comfort management. He continued to receive morphine and lorazepam as needed. Just before 2 PM on the afternoon of March 17 he and no attempts were made at resuscitation as per his previously expressed wishes. - Discharge Plan *PRESCRIPTION DRUG MONITORING PROGRAM REVIEWED*: Not Applicable *COPY OF PRESCRIPTION DRUG MONITORING REPORT IN PATIENT DANE: Not Applicable Home Medications: Home Meds Albuterol Sulfate [Proair Hfa] 2 puff IH Q4HR PRN 03/19/15 [History] Tamsulosin [Flomax] 0.4 mg PO DAILY 03/11/16 [History] Digoxin [Lanoxin] 125 mcg PO DAILY@1300 #30 tablet 11/16/17 [Rx] Potassium Chloride [Klor-Con M20] 20 meq PO BIDMEALS #60 tab.er 11/16/17 [Rx] Docusate Calcium 240 mg PO DAILY 01/13/18 [History] Febuxostat [Uloric] 40 mg PO DAILY 01/13/18 [History] Finasteride 5 mg PO DAILY 08/04/19 [History] Nebivolol [Bystolic] 5 mg PO BID 08/04/19 [History] predniSONE [Prednisone] 10 mg PO BID 08/04/19 [History] Warfarin [Coumadin] 5 mg PO DAILY 03/12/21 [History] - Discharge Summary/Plan Comment DC Time >30 min.: No - Patient Data Vitals - Most Recent: Last Vital Signs Temp 97.8 F 03/17/21 08:52 Pulse 73 03/17/21 08:52 Resp 26 H 03/17/21 08:52 BP 149/51 H 03/17/21 08:52 Pulse Ox 88 L 03/17/21 08:52 Weight - Most Recent: 318 lb 12.615 oz I&O - Last 24 hours: Intake & Output 03/16/21 03/17/21 03/17/21 22:59 06:59 14:59 Output Total 600 300 200 Balance -600 -300 -200 Med Orders - Current: Current Medications Albuterol (Albuterol 8 Gm Inhaler) 0 gm INH Q4H PRN PRN Reason: Dyspnea Benzocaine/Menthol (Benzocaine/Cetylpyridinium/Menthol Lozenge) 1 lozenge MUCMEM Q2H PRN PRN Reason: Cough Last Admin: 03/13/21 22:25 Dose: 1 adolfo Documented by: Digoxin (Digoxin 125 Mcg Tab) 125 mcg PO DAILY@1300 [facility] Last Admin: 03/16/21 13:29 Dose: 125 mcg Documented by: Diltiazem HCl (Diltiazem 180 Mg Cap.Cd) 180 mg PO DAILY [facility] Last Admin: 03/17/21 09:30 Dose: Not Given Documented by: Docusate Sodium (Docusate Sodium 100 Mg Cap) 200 mg PO DAILY [facility] Last Admin: 03/17/21 09:30 Dose: Not Given Documented by: Febuxostat (Febuxostat 40 Mg Tab (Ptom)) 40 mg PO DAILY [facility] Last Admin: 03/17/21 09:31 Dose: Not Given Documented by: Finasteride (Finasteride 5 Mg Tab) 5 mg PO DAILY [facility] Last Admin: 03/17/21 09:31 Dose: Not Given Documented by: Furosemide (Furosemide 40 Mg Tab) 40 mg PO DAILY [facility] Last Admin: 03/17/21 09:30 Dose: Not Given Documented by: Lisinopril (Lisinopril 2.5 Mg Tab) 2.5 mg PO DAILY [facility] Last Admin: 03/17/21 09:31 Dose: Not Given Documented by: Lorazepam (Lorazepam Oral Concentrate 1mg/0.5ml U/D) 0.5 mg BUCCAL Q2H PRN PRN Reason: Anxiety Last Admin: 03/16/21 09:37 Dose: 0.5 mg Documented by: Methocarbamol (Methocarbamol 500 Mg Tab) 500 mg PO Q6H PRN PRN Reason: Spasms Last Admin: 03/13/21 10:17 Dose: 500 mg Documented by: Morphine Sulfate (Morphine 10 Mg/0.5 Ml Oral Syringe) 7.5 mg PO Q1H PRN PRN Reason: Dyspnea Last Admin: 03/17/21 11:21 Dose: 7.5 mg Documented by: Nebivolol (Nebivolol 10 Mg Tab) 5 mg PO BID [facility] Last Admin: 03/17/21 09:30 Dose: Not Given Documented by: Potassium Chloride (Potassium Chloride 20 Meq Tab.Er) 20 meq PO BIDMEALS [facility] Last Admin: 03/17/21 07:31 Dose: Not Given Documented by: Prednisone (Prednisone 10 Mg Tab) 10 mg PO BID [facility] Last Admin: 03/17/21 09:31 Dose: Not Given Documented by: Sodium Chloride (Sodium Chloride 0.9% 10 Ml Syringe) 10 ml FLUSH ASDIRECTED PRN PRN Reason: Keep Vein Open Tamsulosin HCl (Tamsulosin 0.4 Mg Cap.Er) 0.4 mg PO DAILY [facility] Last Admin: 03/17/21 09:30 Dose: Not Given Documented by: Discontinued Medications Digoxin (Digoxin 125 Mcg Tab) 125 mcg PO ONETIME ONE Stop: 03/12/21 04:26 Last Admin: 03/12/21 04:42 Dose: 125 mcg Documented by: Digoxin (Digoxin 125 Mcg Tab) 125 mcg PO ONETIME ONE Stop: 03/13/21 14:01 Last Admin: 03/13/21 13:57 Dose: 125 mcg Documented by: Diltiazem HCl (Diltiazem 120 Mg Cap.Cd) 120 mg PO ONETIME ONE Stop: 03/12/21 01:42 Last Admin: 03/12/21 01:50 Dose: 120 mg Documented by: Diltiazem HCl (Diltiazem Ir 30 Mg Tab) 30 mg PO Q6HR [facility] Last Admin: 03/13/21 04:01 Dose: 30 mg Documented by: Diltiazem HCl (Diltiazem 120 Mg Cap.Cd) 120 mg PO DAILY [facility] Last Admin: 03/15/21 08:43 Dose: 120 mg Documented by: Diltiazem HCl (Diltiazem Ir 30 Mg Tab) 30 mg PO ONETIME ONE Stop: 03/13/21 14:01 Last Admin: 03/13/21 13:57 Dose: 30 mg Documented by: Furosemide (Furosemide 40 Mg/4 Ml Vial) 40 mg IVPUSH ONETIME ONE Stop: 03/12/21 02:17 Last Admin: 03/12/21 03:26 Dose: 40 mg Documented by: Furosemide (Furosemide 40 Mg/4 Ml Vial) 40 mg IVPUSH NOW ONE Stop: 03/12/21 18:01 Last Admin: 03/12/21 17:41 Dose: 40 mg Documented by: Furosemide (Furosemide 40 Mg/4 Ml Vial) 40 mg IVPUSH NOW ONE Stop: 03/13/21 09:01 Last Admin: 03/13/21 08:52 Dose: 40 mg Documented by: Furosemide (Furosemide 40 Mg/4 Ml Vial) 40 mg IVPUSH NOW ONE Stop: 03/13/21 18:01 Last Admin: 03/13/21 19:59 Dose: Not Given Documented by: Furosemide (Furosemide 40 Mg/4 Ml Vial) 40 mg IVPUSH NOW ONE Stop: 03/15/21 16:11 Last Admin: 03/15/21 16:14 Dose: 40 mg Documented by: Lidocaine HCl (Lidocaine 2% Jelly 10 Ml Urojet) 10 ml MUCMEM ONETIME ONE Stop: 03/16/21 02:48 Last Admin: 03/16/21 02:54 Dose: 10 ml Documented by: Methocarbamol (Methocarbamol 500 Mg Tab) 500 mg PO ONETIME ONE Stop: 03/12/21 01:15 Last Admin: 03/12/21 01:32 Dose: 500 mg Documented by: Morphine Sulfate (Morphine 2 Mg/Ml Syringe) 2 mg IVPUSH Q1H PRN PRN Reason: Pain Last Admin: 03/16/21 09:02 Dose: 2 mg Documented by: Sodium Chloride (Sodium Chloride 0.9% 10 Ml Syringe) 10 ml FLUSH ASDIRECTED PRN PRN Reason: Keep Vein Open Last Admin: 03/12/21 00:12 Dose: 10 ml Documented by: Warfarin Sodium (Warfarin 5 Mg Tab) 5 mg PO DAILY@1300 [facility] Last Admin: 03/14/21 13:59 Dose: 5 mg Documented by: - Exam General: Reports: Other ()
== END 2021-03-17 23:34 | disposition expired | DRG 291 ==
LOC: JP.ED 23:21 → JP.MS 03-12 02:06
PROVIDERS: ADMIT Family Medicine; ATTEND Hospitalist
DX: I48.91 Unspecified atrial fibrillation (principal); I13.0 Hypertensive heart and chronic kidney disease with heart failure and stage 1 through stage 4 chronic kidney disease, or unspecified chronic kidney disease; I50.43 Acute on chronic combined systolic (congestive) and diastolic (congestive) heart failure; I48.20 Chronic atrial fibrillation, unspecified; Z68.41 Body mass index [BMI] 40.0-44.9, adult; I24.8 Other forms of acute ischemic heart disease; L97.929 Non-pressure chronic ulcer of unspecified part of left lower leg with unspecified severity; L97.919 Non-pressure chronic ulcer of unspecified part of right lower leg with unspecified severity; I42.9 Cardiomyopathy, unspecified; N18.30 Chronic kidney disease, stage 3 unspecified; I89.0 Lymphedema, not elsewhere classified; E66.01 Morbid (severe) obesity due to excess calories; E78.5 Hyperlipidemia, unspecified; Z51.5 Encounter for palliative care; J44.9 Chronic obstructive pulmonary disease, unspecified; M54.9 Dorsalgia, unspecified; G89.29 Other chronic pain; Z66 Do not resuscitate; H54.7 Unspecified visual loss; K59.09 Other constipation; E66.9 Obesity, unspecified; S46.811A Strain of other muscles, fascia and tendons at shoulder and upper arm level, right arm, initial encounter; E78.00 Pure hypercholesterolemia, unspecified; M10.9 Gout, unspecified; I34.0 Nonrheumatic mitral (valve) insufficiency; Z20.822 Contact with and (suspected) exposure to COVID-19; Z99.81 Dependence on supplemental oxygen; Z85.51 Personal history of malignant neoplasm of bladder; Z79.01 Long term (current) use of anticoagulants; Z79.899 Other long term (current) drug therapy; Z87.891 Personal history of nicotine dependence; Z98.49 Cataract extraction status, unspecified eye; Z98.1 Arthrodesis status; Z79.51 Long term (current) use of inhaled steroids; Z98.890 Other specified postprocedural states; Z90.6 Acquired absence of other parts of urinary tract
CPT/HCPCS: 0241U; 36415; 51702; 71045; 80048; 80053; 80162; 83880; 84484; 85025; 85610; 85730; 93005; 93306; 97162; 97165; 97530; 97535; 99232; 99238; 99285; A9270-GY; J1940; J2270; J7512